=== PATIENT | male | born 1955 | race Caucasian/White ===

== ENCOUNTER 2021-08-11 09:30 | Day surgery (SDC) | payer OTHER ==
[2021-08-05 12:31] LABS: Absolute Lymphocytes (CBC) 1.1 K/uL (0.7-4.9); Basophils % 0.7 % (0-1.3); Hematocrit 41.9 % (39.6-49.0); Lymphocytes % 13.8 % (15.3-44.8); MPV 10.2 fL (7.6-11.3); RBC Red Blood Cell Count 4.75 M/uL (4.33-5.43)
[2021-08-05 12:33] LABS: Potassium 4.3 mmol/L (3.5-5.1); Protime INR 3.56
--- NOTE | 2021-08-05 12:36 | RAD REPORT ---
EXAM DESCRIPTION: RAD - Chest Pa And Lat (2 Views) - 08/05/2021 12:29 pm CLINICAL HISTORY: Pre Op pending heart cath COMPARISON: Chest Single View dated 04/09/2016; CHEST SINGLE VIEW dated 06/17/2012 FINDINGS: Lines: None. Lungs: No evidence of edema or pneumonia. Pleural: No significant pleural effusions or pneumothorax. Cardiac: The heart size is within normal limits. Bones: No acute fractures. Other: IMPRESSION: No acute cardiopulmonary disease.
[2021-08-11] MEDS ORDERED: NA CHLORIDE 0.9% 1,000 ML ONE (10:55)
[2021-08-11] MEDS ORDERED: NITROGLYCERIN/D5W 0 MG/0 ML BTL IV ONE (11:43)
[2021-08-11] MEDS ORDERED: MIDAZOLAM HCL 2 MG/2 ML INJ ONE ×2 (11:43→12:30)
[2021-08-11] MEDS ORDERED: ATROPINE SULF 1 MG/10 ML SYR IV ONE (11:43)
[2021-08-11] MEDS ORDERED: NITROGLYCERIN 100 MCG/ML SYR (for cath lab use only) IV ONE (11:43)
[2021-08-11] MEDS ORDERED: NA CHLORIDE 0.9% 0 ML ONE (11:43)
[2021-08-11] MEDS ORDERED: FENTANYL CITR 100 MCG/2 ML ONE (11:43)
[2021-08-11] MEDS ORDERED: LIDOCAINE 1% 20 ML MDV ONE (11:47)
[2021-08-11] MEDS ORDERED: HEPA 1000U/500MLS 1,000 UNIT/500 ML BAG IV ONE (11:47)
--- NOTE | 2021-08-11 12:25 | OP ---
Surgeon: Madi De Anda MD Dental Surgeon: Aliyah Sanders. The patient will stay in the hospital for 2 hours of bedrest after the procedure. He will go home an d I will see him in the office in the next 2 weeks. Procedure: Admitted on 08/11/2021 for heart catheterization, selective coronary arteriogram. Indication: Coronary artery disease, positive stress test, chest pain, and atrial fibrillation. The patient had been off anticoagulants for few days. 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 Given Versed and fentanyl for sedation. A 6-Kyrgyz sheath introduced in the right c ommon femoral artery using the Seldinger technique and 10 cc of Xylocaine. Angiography there was nor mal. Angio-Seal was used to close the case. Bo catheters left and right were used to cannulate the left main and right main respectively. He had a very short left main, almost dual system. He w as noted to have a 30% proximal circumflex, about a 40% to 50% mid LAD. He had a 99% diagonal with T IMI-1 flow, 30% proximal and distal RCA. There were no complications. Blood Loss: 5 mL. Anesthesia: Total conscious sedation was 30 minutes. Final Diagnosis: Coronary artery disease, [id number]. Plan: Plan is for medical therapy. YAMILET/JUAN Voice ID: [id number] Report ID: [id number]
[2021-08-11 13:37] VITALS: BP 110/58; TEMP 97.7; O2SAT 97
== END 2021-08-11 14:03 | disposition home or self-care (01) ==
LOC: CCL 09:30
DX: I25.10 Atherosclerotic heart disease of native coronary artery without angina pectoris (principal); I48.91 Unspecified atrial fibrillation; I10 Essential (primary) hypertension; Z79.01 Long term (current) use of anticoagulants; Z20.822 Contact with and (suspected) exposure to COVID-19
CPT/HCPCS: 85025; 80048; 36415; 85610; 85730; 71046; 93454; U0003; C1893; C1760; J2250 ×2; J3010; J7030; J1644; J0583

== ENCOUNTER 2023-08-07 11:37 | Emergency (ER) | payer OTHER ==
--- OUTSIDE RECORDS SUMMARY | 2023-08-07 11:45 | XMS REPORT | Continuity of Care Document ---
:1955 Author Organization [facility] t Address [address] [place] [place] [address] Care Team Providers Name Role Phone LARRY CHATMAN Primary Care Physician Unavailable Karen Higginbotham Attending Clinician Unavailable Doctor Unassigned, Patrick Attending Clinician Unavailable KEM SEARS Attending Clinician Unavailable Kem Sears MD Attending Clinician Only, Adc Test Attending Clinician Unavailable Jerald Salgado CRNA Attending Clinician Ephraim Lynch MD Attending Clinician Pob, Adc Lab Main Attending Clinician Unavailable Karen Higginbotham Admitting Clinician Unavailable Larry Chatman Admitting Clinician Unavailable KEM SEARS Admitting Clinician Unavailable Kem Sears MD Admitting Clinician Payers Payer Name Policy Type Policy Number Effective Date Expiration Date S ource Problems This patient has no known problems. Allergies, Adverse Reactions, Alerts Allergy Allergy Status Severity Reaction(s) Onset Inactive Treating Comm ents Source Name Type Date Date Clinician No Known DA Active [facility] Allergie 07-05 s 00:00: [address] NO KNOWN Drug Active Univers ALLERGIE Class ity of [facility] Social History Social Habit Start Date Stop Date Quantity Comments Source Exposure to 2022-03-29 2022-04-08 Not sure [facility] SARS-CoV-2 00:00:00 13:53:00 [facility] (event) [facility] Tobacco use and 2022-03-25 2022-03-25 Smokeless tobacco Un iversity of exposure 00:00:00 00:00:00 non-user [facility] Sex Assigned At [birth year] Universit y of 00:00:00 00:00:00 [facility] Smoking Status Start Date Stop Date Source Unknown if ever smoked [facility] Never smoked tobacco [place] [facility] Medications Ordered Filled Start Stop Current Ordering Indication Dosage Frequency Signature Comments Components Source Medication Medication Date Date Medication? Clinician (SIG) Name Name sodium 2021- No PRN, Univers chloride 04-15 Starting ity of (NS) 15:07: 15:44 on Wed [place] injection 00 :32 04/15/22 at Medic al 1007, Branch Until Wed04/15/22 at 1044, Routine, Intra-op neomycin-po 2021- No PRN, Unive rs lymyxin-dex 04-15 Starting ity of amethasone 15:07: 15[place]44 [place] ([place]OL[place] 00 :32 04/15/22 at [facility] 3.5 [facility], [facility] mg/g-10,000 Until Wed unit/g-0.1 04/15/22 at % 1044, ophthalmic Routine, ointment Intra-op dexamethaso 2021- No PRN, Unive rs ne 04-15 Starting ity of (DECADRON 15:07: 15:44 on Wed [place] PHOSPHATE) 00 :32 04/15/22 at Medi yaniv injection [facility], Branch Until Wed04/15/22 at 1044, Routine, Intra-op ceFAZolin 2021- No PRN, Univers (ANCEF) 04-15 Starting ity of injection 15:07: 15:44 on Wed [place] 00 :32 04/15/22 at [place] [address], Branch Until Wed04/15/22 at 1044, JOSH, Intra-op chondroitin 2021- No PRN, Unive rs sulf-sod 04-15 Starting ity of hyaluronate 14:58: 15:44 on Wed [place] (DUOVISC 00 :32 04/15/22 at Medica l VISCO 0958, Branch ELASTIC) Until Wed intraocular 04/15/22 at injection 1044, Routine, Intra-op carbachoL 2021- No PRN, Univers (MIOSTAT) 04-15 Starting ity o f 0.01 % 14:58: 15:44 on Wed [place] intraocular 00 :32 04/15/22 at Med ical injection 0958, Branch Until Wed04/15/22 at 1044, Routine, Intra-op EPINEPHrine 2021- No PRN, Unive rs 1:1,000 (1 04-15 Starting ity of mg/mL) 14:56: 15:44 on Wed [place] (ADRENALIN) 00 :32 04/15/22 at Med ical injection 0956, Branch Until Wed04/15/22 at 1044, Routine, Intra-op balanced 2021- No PRN, Univers salt irrig 04-15 Starting ity of soln comb1 14:56: 15:44 on Weda s (BSS PLUS) 00 :32 04/15/22 at [facility] ophthalmic 0956, Branch solution Until Wed 500 mL bag 04/15/22 at 1044, Routine, Intra-op water for 2021- No PRN, Univers irrigation 04-15 Starting ity of irrigation 14:49: 15:44 on Wed [place] solution 00 :32 04/15/22 at Medica l 0949, Branch Until Wed04/15/22 at 1044, Routine, Intra-op Hyaluronida 2021- No PRN, Unive rs se, Human 04-15 Starting ity o f Recomb. 14:46: 15:44 on Wed [place] (HYLENEX) 00 :32 22 at Medic al injection 0946, Branch Until Wed04/15/22 at 1044, Routine, Intra-op eye block 2021- No PRN, Univers syringe 11 04-15 Starting ity of mL 14:46: 15:44 on Wed [place] 00 :32 04/15/22 at Medical 0946, Branch Until Wed04/15/22 at 1044, Intra-op cyclopent 2021- No .5mL 0.5 mL, Univ ers 1%-tropic 04-15 Right Eye, ity of 1%-phenyl 13:30: 13:28 ONCE, 1 [place] 2.5%-ketor 00 :00 dose, On Medic al 0.5% Wed04/15/22 Branch (MYDRIATIC at 0830, #5) Routine, ophthalmic DSU Pre-op solution syringe 0.5 mL lactated 2021- No 1000mL at 42 [facility] ringers IV 04-15 07-06 mL/hr, ity of infusion 13:30: 13:28 1,000 mL, [place] 1,000 mL 00 :00 IV Medical Infusion, Branch ONCE, 1 dose, On Wed04/15/22 at 0830, Routine, DSU Pre-op cyclopent 2021- No .5mL 0.5 mL, Univ ers 1%-tropic 04-15 Right Eye, ity of 1%-phenyl 13:30: 13:28 ONCE, 1 [place] 2.5%-ketor 00 :00 dose, On Medic al 0.5% Wed04/15/22 Branch (MYDRIATIC at 0830, #5) Routine, ophthalmic DSU Pre-op solution syringe 0.5 mL lactated 2021- No 1000mL at 42 [facility] ringers IV 04-15 07-06 mL/hr, ity of infusion 13:30: 13:28 1,000 mL, [place] 1,000 mL 00 :00 IV Medical Infusion, Branch ONCE, 1 dose, On Wed04/15/22 at 0830, Routine, DSU Pre-op neomycin-po 2021- No PRN, [facility] lymyxin-dex 04-01 Starting ity of amethasone 15:54: 15:57 [place] (MAXITROL) 00 :17 04/01/22 at Med ical 3.5 1054, Branch mg/g-10,000 Until Wed unit/g-0.1 04/01/22 at % 1057, ophthalmic Routine, ointment Intra-op chondroitin 2021- No PRN, Unive rs sulf-sod 04-01 Starting ity of hyaluronate 15:51: 15:57 on Wed [place] (DUOVISC 00 :17 04/01/22 at Medic al VISCO 1051, Branch ELASTIC) Until Wed intraocular 04/01/22 at injection 1057, Routine, Intra-op dexamethaso 2021- No PRN, Unive rs ne 04-01 Starting ity of (DECADRON 15:41: 15:57 on Wed [place] PHOSPHATE) 00 :17 04/01/22 at Med ical injection 1041, Branch Until 04/01/22 at 1057, Routine, Intra-op ceFAZolin 2021- No PRN, Univers (ANCEF) 04-01 Starting ity of injection 15:40: 15:57 on Wed [place] 00 :17 04/01/22 at Medical 1040, Branch Until Wed04/01/22 at 1057, JOSH, Intra-op carbachoL 2021- No PRN, Univers (MIOSTAT) 04-01 Starting ity o f 0.01 % 15:40: 15:57 on Wed [place] intraocular 00 :17 04/01/22 at [place] dical injection 1040, Branch Until Wed04/01/22 at 1057, Routine, Intra-op water for 2021- No PRN, Univers irrigation 04-01 Starting ity of irrigation 15:32: 15:57 on Wed [place] solution 00 :17 04/01/22 at Medic al 1032, Branch Until Wed04/01/22 at 1057, Routine, Intra-op glycopyrrol 2021- No Intravenou Univers ate 04-01 s, ONCE ity of (ROBINUL) 15:32: 16:05 INTRA [place] injection 00 :35 PROCEDURE, [facility] yaniv Starting Branch on 04/01/22 at 1032, Until Wed04/01/22 at 1105, Routine, Intra-op sodium 2021- No PRN, Univers chloride 04-01 Starting ity of (NS) 15:30: 15:57 on Wed [place] injection 00 :17 04/01/22 at Medi yaniv 1030, Branch Until Wed04/01/22 at 1057, Routine, Intra-op eye block 2021- No PRN, Univers syringe 11 04-01 Starting ity of mL 15:29: 15:57 on Wed 00 :17 04/01/22 at Medical 1029, Branch Until Wed04/01/22 at 1057, Intra-op propofoL IV 2021- No Intravenou Univers infusion 04-01 s, ONCE ity of 15:26: 16:05 INTRA [place] 00 :35 PROCEDURE, Medical Starting Branch on Wed04/01/22 at 1026, Until Wed04/01/22 at 1105, Routine, Intra-op lidocaine 2021- No Intravenou U nivers 1% 04-01 s, ONCE ity of (XYLOCAINE) 15:26: 16:05 INTRA [place] 100 mg/10 00 :35 PROCEDURE, Medi yaniv mL (1 %) Starting Branch injection on Wed04/01/22 at 1026, Until Wed04/01/22 at 1105, Routine, Intra-op Hyaluronida 2021- No PRN, Unive rs se, Human 04-01 Starting ity o f Recomb. 15:25: 15:57 on Wed (HYLENEX) 00 :17 04/01/22 at Medi yaniv injection 1025, Branch Until Wed04/01/22 at 1057, Routine, Intra-op EPINEPHrine 2021- No PRN, Unive rs 1:1,000 (1 04-01 Starting ity of mg/mL) 15:25: 15:57 on Wed (ADRENALIN) 00 :17 04/01/22 at Me dical injection 1025, Branch Until Wed04/01/22 at 1057, Routine, Intra-op balanced 2021- No PRN, Univers salt irrig 04-01 Starting ity of soln comb1 15:25: 15:57 on Wed [place] (BSS PLUS) 00 :17 04/01/22 at Med ical ophthalmic 1025, Branch solution Until Wed 500 mL bag 04/01/22 at 1057, Routine, Intra-op lactated 2021- No IV Univers ringers IV 04-01 Infusion, ity of infusion 15:21: 16:05 [place]OUS [place] 00 :[place] PRN, Medical Starting Branch on Wed04/01/22 at 1021, Until Wed04/01/22 at 1105, Routine, Intra-op lactated 2021- No 1000mL at 42 [facility] rs ringers IV 04-01 mL/hr, ity of infusion 13:30: 13:39 1,000 mL, [place] 1,000 mL 00 :00 IV Medical Infusion, Branch ONCE, 1 dose, On Wed04/01/22 at 0830, Routine, DSU Pre-op cyclopent 2021- No .5mL 0.5 mL, Univ ers 1%-tropic 04-01 Left Eye, ity of 1%-phenyl 13:30: 13:59 ONCE, 1 [place] 2.5%-ketor 00 :00 dose, On Medic al 0.5% Wed Branch (MYDRIATIC 04/01/22 at #5) 0830, ophthalmic Routine, solution DSU Pre-op syringe 0.5 mL lactated 2021- No 1000mL at 42 [facility] rs ringers IV 04-01 mL/hr, ity of infusion 13:30: 13:39 1,000 mL, [place] 1,000 mL 00 :00 IV Medical Infusion, Branch ONCE, 1 dose, On Wed04/01/22 at 0830, Routine, DSU Pre-op cyclopent 2021- No .5mL 0.5 mL, Univ ers 1%-tropic 04-01 Left Eye, ity of 1%-phenyl 13:30: 13:59 ONCE, 1 [place] 2.5%-ketor 00 :00 dose, On Medic al 0.5% Wed Branch (MYDRIATIC 04/01/22 at #5) 0830, ophthalmic Routine, solution DSU Pre-op syringe 0.5 mL atorvastati Yes 40mg Take 40 mg Univers n 40 mg 5-21 by mouth ity of tablet 00:00: daily. [address] Branch atorvastati Yes 40mg Take 40 mg Univers n 40 mg 5-21 by mouth ity of tablet 00:00: daily. [address] Branch atorvastati 2021-0 Yes 40mg Take 40 mg Univers n 40 mg 5-21 by mouth ity of tablet 00:00: daily. [facility] Branch atorvastati 2021-0 Yes 40mg Take 40 mg Univers n 40 mg 5-21 by mouth ity of tablet 00:00: daily. [facility] Branch atorvastati 2021-0 Yes 40mg Take 40 mg Univers n 40 mg 5-21 by mouth ity of tablet 00:00: daily. [facility] Branch atorvastati 2021-0 Yes 40mg Take 40 mg Univers n 40 mg 5-21 by mouth ity of tablet 00:00: daily. [place] [facility] atorvastati 2021-0 Yes 40mg Take 40 mg Univers n 40 mg 5-21 by mouth ity of tablet 00:00: daily. [facility] atorvastati 2021-0 Yes 40mg Take 40 mg Univers n 40 mg 5-21 by mouth ity of tablet 00:00: daily. [facility] atorvastati 0 Yes 40mg Take 40 mg Univers n 40 mg 5-21 by mouth ity of tablet 00:00: daily. [place] [facility] warfarin 3 2021-0 Yes 3mg Take 3 mg Un saida mg tablet 5-17 by mouth ity of 00:00: every Wed, [place] , and Branch Wed in the evening. Wednesday, , Wed, and warfarin 4 2021-0 Yes 4mg Take 4 mg Un [place] mg tablet 5-17 by mouth ity of 00:00: every [place] Wednesday, Medical Wednesday and Branch Wednesday in the evening. Wednesday, Wednesday, and Wednesday warfarin 3 2021-0 Yes 3mg Take 3 mg Un [place] mg tablet 5-17 by mouth ity of 00:00: every Wed, [place] , and Branch Wed in the evening. Wednesday, , Wed, and warfarin 4 2021-0 Yes 4mg Take 4 mg Un [place] mg tablet 5-17 by mouth ity of 00:00: every [place] Wednesday, Medical Wednesday and Branch Wednesday in the evening. Wednesday, Wednesday, and Wednesday warfarin 3 2022-0 Yes 3mg Take 3 mg Un [place] mg tablet 5-17 by mouth ity of 00:00: every Wed, , Medical Th and Branch Wed in the evening. Wednesday, , Wed, and warfarin 4 2021-0 Yes 4mg Take 4 mg Un [place] mg tablet 5-17 by mouth ity of 00:00: every Wednesday, Medical Wednesday and Branch Wednesday in the evening. Wednesday, Wednesday, and Wednesday warfarin 3 2021-0 Yes 3mg Take 3 mg Un [place] mg tablet 5-17 by mouth ity of 00:00: every Wed, , Medical and Branch Wed in the evening. Wednesday, , Wed, and warfarin 4 2021-0 Yes 4mg Take 4 mg Un [place] mg tablet 5-17 by mouth ity of 00:00: every Wednesday, Medical Wednesday and Branch Wednesday in the evening. Wednesday, Wednesday, and Wednesday warfarin 3 2021-0 Yes 3mg Take 3 mg Un [place] mg tablet 5-17 by mouth ity of 00:00: every Wed, , Medical and Branch Wed in the evening. Wednesday, , Wed, and warfarin 4 2021-0 Yes 4mg Take 4 mg Un [place] mg tablet 5-17 by mouth ity of 00:00: every Wednesday, Medical Wednesday and Branch Wednesday in the evening. Wednesday, Wednesday, and Wednesday warfarin 3 2021-0 Yes 3mg Take 3 mg Un [place] mg tablet 5-17 by mouth ity of 00:00: every Wed, , Medical and Branch Wed in the evening. Wednesday, , Wed, and warfarin 4 2021-0 Yes 4mg Take 4 mg Un [place] mg tablet 5-17 by mouth ity of 00:00: every Wednesday, Medical Wednesday and Branch Wednesday in the evening. Wednesday, Wednesday, and Wednesday warfarin 3 2021-0 Yes 3mg Take 3 mg Un [place] mg tablet 5-17 by mouth ity of 00:00: every Wed, , Medical and Branch Wed in the evening. Wednesday, , Wed, and warfarin 4 2021-0 Yes 4mg Take 4 mg Un [place] mg tablet 5-17 by mouth ity of 00:00: every Wednesday, Medical Wednesday and Branch Wednesday in the evening. Wednesday, Wednesday, and Wednesday warfarin 3 2021-0 Yes 3mg Take 3 mg Un [place] mg tablet 5-17 by mouth ity of 00:00: every , and Branch Wed in the evening. Wednesday, , Wed, and warfarin 4 2021-0 Yes 4mg Take 4 mg Un [place] mg tablet 5-17 by mouth ity of 00:00: every Wednesday, Medical Wednesday and Branch Wednesday in the evening. Wednesday, Wednesday, and Wednesday warfarin 3 2021-0 Yes 3mg Take 3 mg Un [place] mg tablet 5-17 by mouth ity of 00:00: every , and Branch Wed in the evening. Wednesday, , Wed, and warfarin 4 2021-0 Yes 4mg Take 4 mg Un [place] mg tablet 5-17 by mouth ity of 00:00: every Wednesday, Medical Wednesday and Branch Wednesday in the evening. Wednesday, Wednesday, and Wednesday lisinopriL 2-0 Yes 30mg Take 30 mg U nivers 30 mg 3-28 by mouth ity of tablet 00:00: every [place] [address] morning. Medical Branch amLODIPine 2-0 Yes 5mg Take 5 mg Un [place] 5 mg tablet 3-28 by mouth ity of 00:00: every [place] morning. Medical Branch lisinopriL 2022-0 Yes 30mg Take 30 mg U nivers 30 mg 3-28 by mouth ity of tablet 00:00: every [place] 00 morning. Medical Branch amLODIPine 2022-0 Yes 5mg Take 5 mg Un [place] 5 mg tablet 3-28 by mouth ity of 00:00: every [place] 00 morning. Medical Branch lisinopriL 2022-0 Yes 30mg Take 30 mg U nivers 30 mg 3-28 by mouth ity of tablet 00:00: every [place] 00 morning. Medical Branch amLODIPine 2022-0 Yes 5mg Take 5 mg Un [place] 5 mg tablet 3-28 by mouth ity of 00:00: every [place] morning. Medical Branch lisinopriL 2022-0 Yes 30mg Take 30 mg U nivers 30 mg 3-28 by mouth ity of tablet 00:00: every [place] morning. Medical Branch amLODIPine 2022-0 Yes 5mg Take 5 mg Un [place] 5 mg tablet 3-28 by mouth ity of 00:00: every [place] morning. Medical Branch lisinopriL 2022-0 Yes 30mg Take 30 mg U nivers 30 mg 3-28 by mouth ity of tablet 00:00: every [place] morning. Medical Branch amLODIPine 2022-0 Yes 5mg Take 5 mg Un [place] 5 mg tablet 3-28 by mouth ity of 00:00: every [place] morning. Medical Branch lisinopriL 2022-0 Yes 30mg Take 30 mg U nivers 30 mg 3-28 by mouth ity of tablet 00:00: every [place] morning. Medical Branch amLODIPine 2022-0 Yes 5mg Take 5 mg Un [place] 5 mg tablet 3-28 by mouth ity of 00:00: every [place] morning. Medical Branch lisinopriL 2022-0 Yes 30mg Take 30 mg U nivers 30 mg 3-28 by mouth ity of tablet 00:00: every [place] morning. Medical Branch amLODIPine 2-0 Yes 5mg Take 5 mg Un [place]a 5 mg tablet 3-28 by mouth ity of 00:00: every [place] morning. Medical Branch lisinopriL 2022-0 Yes 30mg Take 30 mg U nivers 30 mg 3-28 by mouth ity of tablet 00:00: every [place] morning. Medical Branch amLODIPine 2022-0 Yes 5mg Take 5 mg Un [place] 5 mg tablet 3-28 by mouth ity of 00:00: every [place] morning. Medical Branch lisinopriL 2022-0 Yes 30mg Take 30 mg U nivers 30 mg 3-28 by mouth ity of tablet 00:00: every [place] morning. Medical Branch amLODIPine 2022-0 Yes 5mg Take 5 mg Un [place] 5 mg tablet 3-28 by mouth ity of 00:00: every [place] morning. Medical Branch Vital Signs Vital Name Observation Time Observation Value Comments Source Systolic blood 2022-04-15 15:25:00 142 mm[Hg] Univer sity of pressure [place] [facility] Diastolic blood 2022-04-15 15:25:00 72 mm[Hg] Unive rsity of pressure [place] [facility] Heart rate 2022-04-15 15:25:00 50 /min [facility]i ty [facility] [place] [facility] Respiratory rate 2022-04-15 15:25:00 6 /min Univ ersity of [place] [facility] Oxygen saturation in 2022-04-15 15:25:00 100 /min University of Arterial blood by [place] [employer] Pulse oximetry Branch Body temperature 2022-04-15 15:09:00 36.11 Maricruz Univ ersity of [place] [facility] Body height 2022-04-08 17:09:00 172 cm Universi ty of [place] [facility] Body weight 2022-04-08 17:09:00 72.6 kg [facility] [place] [facility] BMI 2022-04-08 17:09:00 24.54 kg/m2 [facility] [place] [facility] Systolic blood 2022-04-15 13:20:00 144 mm[Hg] Univer sity of pressure [place] [facility] Diastolic blood 2022-04-15 13:20:00 84 mm[Hg] Unive rsity of pressure [place] [facility] Heart rate 2022-04-15 13:20:00 40 /min Universi ty [facility] [place] [facility] Body temperature 2022-04-15 13:20:00 36.67 Maricruz Univ ersity of [place] [facility] Respiratory rate 2022-04-15 13:20:00 16 /min Univ ersity of [place] [facility] Oxygen saturation in 2022-04-15 13:20:00 100 /min University of Arterial blood by [place] [employer] Pulse oximetry Branch Body height 2022-04-08 17:09:00 172 cm Universi [facility] [place] [facility] Body weight 2022-04-08 17:09:00 72.6 kg Universi [facility] [place] [facility] BMI 2022-04-08 17:09:00 24.54 kg/m2 [facility] [place] [facility] Systolic blood 2022-04-01 16:15:00 137 mm[Hg] Univer sity of pressure [place] [facility] Diastolic blood 2022-04-01 16:15:00 76 mm[Hg] Unive rsity of pressure [place] [facility] Heart rate 2022-04-01 16:15:00 47 /min Universi ty [facility] [place] [facility] Respiratory rate 2022-04-01 16:15:00 9 /min Univ ersity of [place] [facility] Oxygen saturation in 2022-04-01 16:15:00 100 /min University of Arterial blood by [facility] Pulse oximetry Branch Body temperature 2022-04-01 16:00:00 36.5 Maricruz [facility] ersity of [place] [facility] Body height 2022-03-30 14:44:00 170.2 cm Universi ty [facility] [place] [facility] Body weight 2022-03-30 14:44:00 72.6 kg [facility] [place] [facility] BMI 2022-03-30 14:44:00 25.06 kg/m2 [facility] [place] [facility] Respiratory rate 2022-04-01 15:54:00 15 /min Univ ersity of [place] [facility] Systolic blood 2022-04-01 13:31:00 150 mm[Hg] Univer sity of pressure [facility] Diastolic blood 2022-04-01 13:31:00 81 mm[Hg] Unive rsity of pressure [facility] Heart rate 2022-04-01 13:31:00 49 /min Universi ty of [place] Medical [facility] Body temperature 2022-04-01 13:31:00 37.06 Maricruz [facility] ersity of [place] Medical [facility] Respiratory rate 2022-04-01 13:31:00 16 /min [facility] ersity of [place] [facility] Oxygen saturation in 2022-04-01 13:31:00 100 /min University of Arterial blood by [facility] Pulse oximetry Branch Body height 2022-03-30 14:44:00 170.2 cm [facility] [place] [facility] Body weight 2022-03-30 14:44:00 72.6 kg [facility] [place] [facility] BMI 2022-03-30 14:44:00 25.06 kg/m2 [facility] [place] [facility] Procedures Procedure Date / Time Performing Source Performed Clinician [id number] 2023-07-30 PIOTRHA [facility] 00:00:00 [facility] [id number] 2023-07-30 GANHA [facility] 00:00:00 [facility] [id number] 2023-07-30 GANHA [facility] 00:00:00 [facility] [id number] 2023-07-26 DAHMA [facility] 00:00:00 [facility] [id number] 2023-07-24 QUAAM [facility] 00:00:00 [facility] [id number] 2023-07-24 QUAAM [facility] 00:00:00 [facility] [id number] 2023-07-24 QUAAM [facility] 00:00:00 [facility] [id number] 2023-07-24 QUAAM [facility] 00:00:00 [facility] [id number] 2023-07-15 CHAAB.01 [facility] 00:00:00 [facility] [id number] 2023-07-15 ALKNE [facility] 00:00:00 [facility] [id number] 2023-07-15 CHAAB.01 [facility] 00:00:00 [facility] [id number] 2023-07-15 CHAAB.01 [facility] 00:00:00 [facility] [id number] 2023-07-15 ALKNE [facility] 00:00:00 [facility] [id number] 2023-07-15 CHAAB.01 [facility] 00:00:00 [facility] [id number] 2023-07-15 CHAAB.01 [facility] 00:00:00 [facility] [id number] 2023-07-15 ALKNE [facility] 00:00:00 [facility] [id number] 2023-07-14 ALKNE [facility] 00:00:00 [facility] [id number] 2023-07-14 ALKNE [facility] 00:00:00 [facility] VACCINATIONS - CONSENTS, 2022-04-22 Doctor Unassigned, [facility] ELIGIBILITY, HISTORY 05:01:00 [place] [facility] PHACOEMULSIFICATION OF 2022-04-15 Kem Sears [facility] CATARACT WITH INTRAOCULAR 14:36:00 Medica l Branch LENS IMPLANT PROTHROMBIN TIME / INR 2022-04-15 Kem Sears [facility] 13:25:00 Medical [facility] PROTHROMBIN TIME / INR 2022-04-15 Kem Sears [facility] 13:25:00 Medical [facility] CONSENT/REFUSAL FOR DIAGNOSIS 2022-04-14 Doctor Unassigned, [facility] AND TREATMENT 19:30:53 [place] [facility] CONSENT/REFUSAL FOR DIAGNOSIS 2022-04-14 Doctor Unassigned, [facility] AND TREATMENT 19:30:53 [place] [facility] ASSIGNMENT OF BENEFITS 2022-04-14 Doctor Figueroa [facility] 19:30:28 [place] [facility] ASSIGNMENT OF BENEFITS 2022-04-14 Doctor Unassrosina [facility] 19:30:28 [place] [facility] PHACOEMULSIFICATION OF 2022-04-01 Kem Sears [facility] CATARACT WITH INTRAOC[facility]00 [facility] LENS IMPLANT PROTHROMBIN TIME / INR 2022-04-01 Kem Sears [facility] 13:31:00 [facility] PROTHROMBIN TIME / INR 2022-04-01 Kem Sears [facility] 13:31:00 Medical [place] PHYSICIAN ORDERS 2022-03-27 Doctor [facility] 05:01:00 [place] [facility] ASSIGNMENT OF BENEFITS 2022-03-16 Doctor Figueroa [facility] 21:41:08 [place] [facility] Encounters Start End Encounter Admission Attending Care Care Encounter Source Date/Time Date/Time Type Type Clinicians Facility Department ID 2023-07-14 2023-08-04 Inpatient WAI GómezCL INTE.02 [id number] [facility] 05:36:00 14:54:00 Karen 23 [facility] 2023-07-05 2023-07-05 Outpatient WAI GómezCL 3DAY [id number] [facility] 08:00:00 09:00:00 Karen 88 [facility] 2022-04-22 2022-04-22 Orders Doctor MCKEON [id number] Univers 00:00:00 00:00:00 Only Unassigned, MELVI [id number] [facility]y of [place] [facility] [id number] [place] as [id number] [place] [address] Branch 2022-04-15 2022-04-15 Outpatient FADI CAMPBELL OPH [id number] Univers 08:16:00 10:39:00 KEM blackwood [facility] 2022-04-15 2022-04-15 [facility] FADI Sears [id number] Univers 08:16:00 10:39:00 Encounter Kem Dunn DAVID [id number] ity [id number] [id number] [facility] 071 Branch 2022-04-15 2022-04-15 Surgery [facility] [id number] Univers 08:59:00 09:31:00 Kem Dunn DAVID [id number] [id number] [id number] [facility] [address] 2022-04-14 2022-04-14 Laboratory Only, Adc Test [facility] 1.2.840. 114 [id number] Univers 11:30:00 11:45:00 Only RenuKem 350.1.13.1 0 [place] [id number] [facility] [address] 2022-04-14 2022-04-14 [facility] [id number] Univers 11:30:00 11:30:00 KEM [facility] 2022-04-01 2022-04-01 Outpatient R [facility] [id number] Univers 08:20:00 11:23:00 KEM [facility] 2022-04-01 2022-04-01 [facility] 1.2.314.885 [id number] Univers 08:20:00 11:23:00 Encounter Kem Mona DAVID 350.1.13.10 [place] [id number] [place] [id number] Branch 2022-04-01 2022-04-01 Anesthesia Jerald Salgado [facility] 1.2.840.11 4 [id number] Univers 10:21:00 11:01:00 Event Ephraim Lynch 350.1.13.10 [place] [id number] [facility] [address] 2022-04-01 2022-04-01 Surgery [facility] 1.2.840.114 [id number] Univers 09:32:00 10:04:00 Kem HERNANDEZ 350.1.13.10 [place] [id number] [facility] [address] 2022-03-27 2022-03-27 Keno Writer/Runner Kirstin, Adc Lab Main [facility] 1.2.8 40.114 [id number] Univers 13:45:00 14:00:00 Visit Kme Sears DAVID 350.1.13.1 0 [place] PROF[place] [id number] Az dic[address] 2022-03-27 2022-03-27 Outpatient R [facility] [id number] Univers 13:45:00 13:45:00 KEM sierra [facility] 2022-03-27 2022-03-27 Orders Doctor [facility] 1.2.840.114 [id number] Univers 00:00:00 00:00:00 Only Unassigned, MELVI 350.1.13.10 [place] of [place] [facility] 4.2.7.2.686 [place] as [id number] [address] 2022-03-16 2022-03-16 Keno Writer/Runner Kirstin, [facility] Lab Main [facility] 1.2.8 40.114 [id number] Univers 16:45:00 17:00:00 Visit Kem Sears DAVID 350.1.13.1 0 [place] [id number] Az dicmt NAL [address] [place] [address] 2022-03-16 2022-03-16 Outpatient R [facility] [id number] Univers 16:45:00 16:45:00 KEM blackwood [facility] 2022-03-16 2022-03-16 Orders Doctor [facility] 1.2.840.114 [id number] Univers 00:00:00 00:00:00 Only Unassigned, MELVI 350.1.13.10 ity of [place] [facility] 4.2.7.2.686 [place] [id number] Medi yaniv [address]9 [address] Results Test Description Test Time Test Comments Results Result Comments Source - XR CHEST 1 V 2023-08-04 09:06:00 [facility] : 1955 Sex: M FAX: Karen Corley MD [phone] [place]: St: ADM FAX: Larry Mock MD [phone] FAX: Dorothy Ventura NP [phone] FAX: Tom Toribio MD [phone] Name: CARLOS MANUEL DOUGLASS [facility] : 1955 Age/S: 68/M [address] [place] [address] Bl Unit #: [id number] Loc: G.3346 [place] [address] Phys: Dorothy Ventura NP Acct: [id number] Dis Date: Status: ADM IN PHONE #: [phone] Exam Date: 08/04/2023 0650 FAX #: [phone] Reason: S/P CABG, R/O EFFUSION EXAMS: CPT CODE: [id number] XR CHEST 1 V 61632 STUDY: Chest radiograph HISTORY: CABG COMPARISON: 08/03/2023 TECHNIQUE: Frontal view of the chest. LOCATION: H19 FINDINGS: Left chest single lead pacemaker is again noted. Again seen are poststernotomy changes. The cardiac silhouette is stable in size. Left basilar opacity and small left pleural effusion are similar to the prior exam. There is no discernible pneumothorax. IMPRESSION: No significant interval change. at 0906 Reported and signed by: Jatin Coreas M.D. CC: Karen Higginbotham MD; Larry Chatman MD; Dorothy Ventura NP; Tom Richard MD Technologist: Afshin López RT(R) Trnscrd Date/Time/By: 08/04/2023 (905) : By: [email or web address] Orig Print D/T: S: 08/04/2023 (0909) PAGE 1 Signed Report B-TYPE NATRIURETIC PEPTIDE 2023-08-04 03:31:00 Test Item Value Reference Range Interpretation Comme nts B-TYPE NATRIURETIC PEPTIDE (test code = BNP) 354.0 PG/ML 0-100 H BASIC METABOLIC [id number] 03:26:00 Test Item Value Reference Range Interpretation Comments SODIUM (test code = 131 mEq/L 134-147 L NA) POTASSIUM (test code 3.8 mEq/L 3.4-5.0 N = K) CHLORIDE (test code 101 mEq/L 100-108 N = CL) CARBON DIOXIDE (test 26 mEq/l 21-33 N code = CO2) ANION GAP (test code 7 0-20 N = GAP) GLUCOSE (test code = 103 mg/dL 77-141 N NOTE: N EW NORMAL RANGE GLU) BLOOD UREA NITROGEN 19 mg/dL 7-25 N NOTE: NE W NORMAL RANGE (test code = BUN) GLOMERULAR 72.7 80-90 L The Glomerular FILTRATION RATE Filtration R ate is a (test code = GFR) calculated parameterbased on serum Creatinine, pat ient age and sex. GFR va luesless than 60 mL/min/ 1.73 square meters a re indicative ofCh ronic Kidney Disease. Values less than 15 mL/min/1.73squa re meters indicate Kidney failure. The calculation forGFR is based on the CKD-EPI (2020) calculat ion. This formulais race indifferent and is the recommended for anabell for GFRby the Natio nal Kidney Foundati on for Adults.The GFR will not calculate if th e sex is unknown or if thepatient's ag e is <18 years. CREATININE (test 1.1 mg/dL 0.6-1.3 N code = CREAT) CALCIUM (test code = 8.5 mg/dL 8.0-10.5 N CA) [id number] 03:26:00 Test Item Value Reference Range Interpretation Comments PHOSPHOROUS (test code = PHOS) 4.8 MG/DL 2.5-4.9 [id number] 03:26:00 Test Item Value Reference Range Interpretation Comments MAGNESIUM (test code = 1.83 mg/dL 1.6-2.6 N NOTE: NEW NORMAL MAG) RANGE CBC W/AUTO [id number] 03:17:00 Test Item Value Reference Range Interpretation Comments WHITE BLOOD CELL (test code = 9.1 x10 3/uL 4.5-11.0 N WBC) RED BLOOD CELL (test code = 3.25 x10 6/uL 4.00-5.60 L RBC) HEMOGLOBIN (test code = HGB) 9.4 g/dL 12.5-16.9 L HEMATOCRIT (test code = HCT) 29.6 % 37.5-50.7 L MEAN CELL VOLUME (test code = 91.1 fL 81.0-99.0 N MCV) MEAN CELL HGB (test code = MCH) 28.9 pg 27.0-33.0 N MEAN CELL HGB CONCETRATION 31.8 g/dL 33.0-37.0 L (test code = MCHC) RED CELL DISTRIBUTION WIDTH CV 14.6 % 11.5-14.5 H (test code = RDW) RED CELL DISTRIBUTION WIDTH SD 48.1 fL 37.0-54.0 N (test code = RDW-SD) PLATELET COUNT (test code = 420 x10 3/uL 150-400 H PLT) MEAN PLATELET VOLUME (test code 9.4 fL 7.0-9.0 H = MPV) NEUTROPHIL % (test code = NT%) 69.1 % 56.0-77.0 N IMMATURE GRANULOCYTE % (test 0.9 % 0.0-2.0 N code = IG%) LYMPHOCYTE % (test code = LY%) 10.9 % 14.0-32.0 L MONOCYTE % (test code = MO%) 11.3 % 4.8-9.0 H EOSINOPHIL % (test code = EO%) 6.6 % 0.3-3.7 H BASOPHIL % (test code = BA%) 1.2 % 0.0-2.0 N NUCLEATED RBC % (test code = 0.0 % 0-0 N NRBC%) NEUTROPHIL # (test code = NT#) 6.31 x10 3/uL 2.0-7.6 N IMMATURE GRANULOCYTE # (test 0.08 x10 3/uL 0.00-0.03 H code = IG#) LYMPHOCYTE # (test code = LY#) 0.99 x10 3/uL 1.0-3.8 L MONOCYTE # (test code = MO#) 1.03 x10 3/uL 0.1-0.8 H EOSINOPHIL # (test code = EO#) 0.60 x10 3/uL 0.0-0.2 H BASOPHIL # (test code = BA#) 0.11 x10 3/uL 0.0-0.2 N NUCLEATED RBC # (test code = 0.00 x10 3/uL 0.0-0.1 N NRBC#) - XR CHEST 1 [id number] 08:51:00 [facility] : 1955 Sex: M FAX: Karen Corley MD [phone] [place]: St: ADM FAX: Larry Mock MD [phone] FAX: Dorothy Ventura NP [phone] FAX: Tom Toribio MD [phone] Name: CARLOS MANUEL DOUGLASS : 1955 Age/S: 68/M [address] [place] [address] Bl Unit #: [id number] Loc: .3346 [place] [address] Phys: Dorothy Ventura NP Acct: [id number] Dis Date: Status: ADM IN PHONE #: [phone] Exam Date: 08/03/2023711 FAX #: [phone] Reason: S/P CABG, R/O EFFUSION EXAMS: CPT CODE: [id number] XR CHEST 1 V 80301 EXAM: - XRCHEST 1 V INDICATION: S/P CABG, R/O EFFUSION Technique: Frontal view Location: T18 Findings and impression: Small left pleural effusion and left lung opacities appear to be unchanged since yesterday.No pneumothorax seen. Left pacemaker noted. Cardiomediastinal silhouette appears unchanged. Osseous s tructures appear unremarkable. at 0851 Reported and signed by: Sivakumar Arambula M.D. CC: Karen Higginbotham MD; Larry Chatman MD; Dorothy Ventura NP;Tom Richard MD Technologist: Lorene Leonard RT(R) Trnscrd Date/Time/By: 08/03/2023 (0851) : By:[email or web address] Orig Print D/T: S: 08/03/2023 (0841) PAGE 1 Signed ReportBASIC METABOLIC PANEL 2023-08-03 03:29:00 Test Item Value Reference Range Interpretation Comments SODIUM (test code = 132 mEq/L 134-147 L NA) POTASSIUM (test code 4.0 mEq/L 3.4-5.0 N = K) CHLORIDE (test code 100 mEq/L 100-108 N = CL) CARBON DIOXIDE (test 25 mEq/l 21-33 N code = CO2) ANION GAP (test code 11 0-20 N = GAP) GLUCOSE (test code = 104 mg/dL 77-141 N NOTE: N EW NORMAL RANGE GLU) BLOOD UREA NITROGEN 17 mg/dL 7-25 N NOTE: NE W NORMAL RANGE (test code = BUN) GLOMERULAR 92.5 80-90 H The Glomerular FILTRATION RATE Filtration R ate is a (test code = GFR) calculated parameterbased on serum Creatinine, pat ient age and sex. GFR va luesless than 60 mL/min/ 1.73 square meters a re indicative ofCh ronic Kidney Disease. Values less than 15 mL/min/1.73squa re meters indicate Kidney failure. The calculation forGFR is based on the CKD-EPI (2020) calculat ion. This formulais race indifferent and is the recommended for anabell for GFRby the Natcounts include 234 beds at the [facility] Kidney Foundati on for Adults.The GFR will not calculate if th e sex is unknown or if thepatient's ag e is <18 years. CREATININE (test 0.9 mg/dL 0.6-1.3 N code = CREAT) CALCIUM (test code = 8.6 mg/dL 8.0-10.5 N CA) [id number] 03:29:00 Test Item Value Reference Range Interpretation Comments PHOSPHOROUS (test code = PHOS) 3.8 MG/DL 2.5-4.9 N [id number] 03:29:00 Test Item Value Reference Range Interpretation Comments MAGNESIUM (test code = 1.93 mg/dL 1.6-2.6 N NOTE: NEW NORMAL MAG) RANGE CBC W/AUTO [id number] 03:04:00 Test Item Value Reference Range Interpretation Comments WHITE BLOOD CELL (test code = 8.5 x10 3/uL 4.5-11.0 N WBC) RED BLOOD CELL (test code = 3.21 x10 6/uL 4.00-5.60 L RBC) HEMOGLOBIN (test code = HGB) 9.5 g/dL 12.5-16.9 L HEMATOCRIT (test code = HCT) 29.0 % 37.5-50.7 L MEAN CELL VOLUME (test code = 90.3 fL 81.0-99.0 N MCV) MEAN CELL HGB (test code = MCH) 29.6 pg 27.0-33.0 N MEAN CELL HGB CONCETRATION 32.8 g/dL 33.0-37.0 L (test code = MCHC) RED CELL DISTRIBUTION WIDTH CV 14.6 % 11.5-14.5 H (test code = RDW) RED CELL DISTRIBUTION WIDTH SD 47.8 fL 37.0-54.0 N (test code = RDW-SD) PLATELET COUNT (test code = 414 x10 3/uL 150-400 H PLT) MEAN PLATELET VOLUME (test code 9.3 fL 7.0-9.0 H = MPV) NEUTROPHIL % (test code = NT%) 65.0 % 56.0-77.0 N IMMATURE GRANULOCYTE % (test 0.6 % 0.0-2.0 N code = IG%) LYMPHOCYTE % (test code = LY%) 13.6 % 14.0-32.0 L MONOCYTE % (test code = MO%) 11.8 % 4.8-9.0 H EOSINOPHIL % (test code = EO%) 7.6 % 0.3-3.7 H BASOPHIL % (test code = BA%) 1.4 % 0.0-2.0 N NUCLEATED RBC % (test code = 0.0 % 0-0 N NRBC%) NEUTROPHIL # (test code = NT#) 5.49 x10 3/uL 2.0-7.6 N IMMATURE GRANULOCYTE # (test 0.05 x10 3/uL 0.00-0.03 H code = IG#) LYMPHOCYTE # (test code = LY#) 1.15 x10 3/uL 1.0-3.8 N MONOCYTE # (test code = MO#) 1.00 x10 3/uL 0.1-0.8 H EOSINOPHIL # (test code = EO#) 0.64 x10 3/uL 0.0-0.2 H BASOPHIL # (test code = BA#) 0.12 x10 3/uL 0.0-0.2 N NUCLEATED RBC # (test code = 0.00 x10 3/uL 0.0-0.1 N NRBC#) - CHEST 1 [id number] 07:40:00 [facility] : 1955 Sex: M FAX: Karen Corley MD [phone] [place]: St: ADM FAX: Larry Mock MD [phone] FAX: Dorothy Ventura NP [phone] FAX: Tom Toribio MD [phone] Name: CARLOS MANUEL DOUGLASS [facility] [place] : 1955 Age/S: 68/M [address] [place] [address] Unit #: [id number] Loc: G.3346 [place] [address] Phys: Dorothy Ventura NPAcct: [id number] Dis Date: Status: ADM IN PHONE #: [phone] Exam Date: 08/02/2023 0737 FAX #:[phone] Reason: S/P CABG, R/O EFFUSION EXAMS: CPT CODE: [id number] XR CHEST 1 V 85318 EXAM: - XR CHEST 1 V Location code:C3 HISTORY: S/P CABG, R/O EFFUSION COMPARISON: 08/01/2023 IMPRESSION: Single AP view of the chest is provided. Median sternotomy changes and left chest wall pacer device are unchanged. Retrocardiac opacity favoring small effusion is similar. The right lung remains clear. There is no pneumothorax. No additional interval change. at 4040 Reported and signed by: Germain Godfrey M.D. CC: Karen Higginbotham MD; Larry Chatmna MD; Dorothy Ventura NP; Tom Richard MD Technologist: Christiano Corey RT(R) Trnscrd Date/Time/By: 08/02/2023 (0715) : By: [email or web address] Orig Print D/T: S: 08/02/2023 (1425) PAGE 1 Signed ReportBASIC METABOLIC PANEL 2023-08-02 02:34:00 Test Item Value Reference Range Interpretation Comments SODIUM (test code = 133 mEq/L 134-147 L NA) POTASSIUM (test code 3.9 mEq/L 3.4-5.0 N = K) CHLORIDE (test code 101 mEq/L 100-108 N = CL) CARBON DIOXIDE (test 24 mEq/l 21-33 N code = CO2) ANION GAP (test code 12 0-20 N = GAP) GLUCOSE (test code = 96 mg/dL 77-141 N NOTE: N EW NORMAL RANGE GLU) BLOOD UREA NITROGEN 17 mg/dL 7-25 N NOTE: NE W NORMAL RANGE (test code = BUN) GLOMERULAR 92.5 80-90 H The Glomerular FILTRATION RATE Filtration R ate is a (test code = GFR) calculated parameterbased on serum Creatinine, pat ient age and sex. GFR va luesless than 60 mL/min/ 1.73 square meters a re indicative ofCh ronic Kidney Disease. Values less than 15 mL/min/1.73squa re meters indicate Kidney failure. The calculation forGFR is based on the CKD-EPI (2020) calculat ion. This formulais race indifferent and is the recommended for anabell for GFRby the Nat nal Kidney Foundati on for Adults.The GFR will not calculate if th e sex is unknown or if thepatient's ag e is <18 years. CREATININE (test 0.9 mg/dL 0.6-1.3 N code = CREAT) CALCIUM (test code = 8.8 mg/dL 8.0-10.5 N CA) [id number] 02:34:00 Test Item Value Reference Range Interpretation Comments MAGNESIUM (test code = 2.00 mg/dL 1.6-2.6 N NOTE: NEW NORMAL MAG) RANGE CBC W/AUTO [id number] 02:19:00 Test Item Value Reference Range Interpretation Comments WHITE BLOOD CELL (test code = 8.0 x10 3/uL 4.5-11.0 N WBC) RED BLOOD CELL (test code = 3.18 x10 6/uL 4.00-5.60 L RBC) HEMOGLOBIN (test code = HGB) 9.2 g/dL 12.5-16.9 L HEMATOCRIT (test code = HCT) 28.6 % 37.5-50.7 L MEAN CELL VOLUME (test code = 89.9 fL 81.0-99.0 MCV) MEAN CELL HGB (test code = MCH) 28.9 pg 27.0-33.0 N MEAN CELL HGB CONCETRATION 32.2 g/dL 33.0-37.0 L (test code = MCHC) RED CELL DISTRIBUTION WIDTH CV 14.5 % 11.5-14.5 N (test code = RDW) RED CELL DISTRIBUTION WIDTH SD 47.0 fL 37.0-54.0 N (test code = RDW-SD) PLATELET COUNT (test code = 409 x10 3/uL 150-400 H PLT) MEAN PLATELET VOLUME (test code 9.1 fL 7.0-9.0 H = MPV) NEUTROPHIL % (test code = NT%) 68.1 % 56.0-77.0 N IMMATURE GRANULOCYTE % (test 0.6 % 0.0-2.0 N code = IG%) LYMPHOCYTE % (test code = LY%) 11.9 % 14.0-32.0 L MONOCYTE % (test code = MO%) 11.6 % 4.8-9.0 H EOSINOPHIL % (test code = EO%) 6.8 % 0.3-3.7 H BASOPHIL % (test code = BA%) 1.0 % 0.0-2.0 N NUCLEATED RBC % (test code = 0.0 % 0-0 N NRBC%) NEUTROPHIL # (test code = NT#) 5.42 x10 3/uL 2.0-7.6 N IMMATURE GRANULOCYTE # (test 0.05 x10 3/uL 0.00-0.03 H code = IG#) LYMPHOCYTE # (test code = LY#) 0.95 x10 3/uL 1.0-3.8 L MONOCYTE # (test code = MO#) 0.92 x10 3/uL 0.1-0.8 H EOSINOPHIL # (test code = EO#) 0.54 x10 3/uL 0.0-0.2 H BASOPHIL # (test code = BA#) 0.08 x10 3/uL 0.0-0.2 N NUCLEATED RBC # (test code = 0.00 x10 3/uL 0.0-0.1 N NRBC#) MANUAL DIFF REQUIRED (test code NO = MDIFF) - XR CHEST 1 [id number] 09:47:00 [facility] : 1955 Sex: M FAX:Karen Corley MD [phone] [place]: St: ADM FAX: Larry Mock MD [phone] FAX: Sobia Valdez MD [phone] FAX: Tom Toribio MD [phone] Name: RAFATCARLOS MANUEL Chavez [facility] : 1955 Age/S: 68/M [address] [place] [address] Blvd Unit #: [id number] Loc: G.3346 [place] [address] Phys: Sobia Ghosh MD Acct: [id number] Dis Date: Status: ADM IN PHONE #: [phone] Exam Date: 08/01/2023922 FAX#: [phone] Reason: POST OP CVICU EXAMS: CPT CODE: [id number] XR CHEST 1 V 31484 EXAM: - XR CHEST 1 V HISTORY: POST OP CVICU LOCATION CODE:T18 COMPARISON: Prior day FINDINGS/ IMPRESSION: Stable cardiomediastinal silhouette and stable left subclavian approach unipolar pacemaker lead. Similar appearance of small left pleural effusion with left basilar atelectasis compared to prior imaging. Lungs otherwise appear clear. No appreciable pneumothorax. No additional interval change. at 0947 Reported and signed by: Ondina Harris M.D. CC: Karen Higginbotham MD; Larry Chatman MD; Sobia Ghosh MD; Tom Richard MD Technologist: Bernie Escobar, RT(R); Dorothy Figueroa RT(R) Trnncrd Date/Time/By: 08/01/2023 (7058) : By: [email or web address] Orig Print D/T: S: 08/01/2023 (2995) PAGE 1 Signed ReportBASIC METABOLIC [id number] 04:27:00 Test Item Value Reference Range Interpretation Comments SODIUM (test code = 130 mEq/L 134-147 L NA) POTASSIUM (test code 4.3 mEq/L 3.4-5.0 N = K) CHLORIDE (test code 100 mEq/L 100-108 N = CL) CARBON DIOXIDE (test 22 mEq/l 21-33 N code = CO2) ANION GAP (test code 12 0-20 N = GAP) GLUCOSE (test code = 101 mg/dL 77-141 NOTE: N EW NORMAL RANGE GLU) BLOOD UREA NITROGEN 13 mg/dL 7-25 N NOTE: NE W NORMAL RANGE (test code = BUN) GLOMERULAR 92.5 80-90 H The Glomerular FILTRATION RATE Filtration R ate is a (test code = GFR) calculated parameterbased on serum Creatinine, pat ient age and sex. GFR va luesless than 60 mL/min/ 1.73 square meters a re indicative ofCh ronic Kidney Disease. Values less than 15 mL/min/1.73squa re meters indicate Kidney failure. The calculation forGFR is based on the CKD-EPI (2020) calculat ion. This formulais race indifferent and is the recommended for anabell for GFRby the [facility] Kidney Foundati on for Adults.The GFR will not calculate if th e sex is unknown or if thepatient's ag e is <18 years. CREATININE (test 0.9 mg/dL 0.6-1.3 N code = CREAT) CALCIUM (test code = 8.3 mg/dL 8.0-10.5 N CA) [id number] 04:27:00 Test Item Value Reference Range Interpretation Comments PHOSPHOROUS (test code = PHOS) 3.3 MG/DL 2.5-4.9 N [id number] 04:27:00 Test Item Value Reference Range Interpretation Comments MAGNESIUM (test code = 1.89 mg/dL 1.6-2.6 N NOTE: NEW NORMAL MAG) RANGE CBC W/AUTO [id number] 04:08:00 Test Item Value Reference Range Interpretation Comments WHITE BLOOD CELL (test code = 7.8 x10 3/uL 4.5-11.0 N WBC) RED BLOOD CELL (test code = 3.09 x10 6/uL 4.00-5.60 L RBC) HEMOGLOBIN (test code = HGB) 9.0 g/dL 12.5-16.9 L HEMATOCRIT (test code = HCT) 28.9 % 37.5-50.7 L MEAN CELL VOLUME (test code = 93.5 fL 81.0-99.0 N MCV) MEAN CELL HGB (test code = MCH) 29.1 pg 27.0-33.0 N MEAN CELL HGB CONCETRATION 31.1 g/dL 33.0-37.0 L (test code = MCHC) RED CELL DISTRIBUTION WIDTH CV 14.7 % 11.5-14.5 H (test code = RDW) RED CELL DISTRIBUTION WIDTH SD 49.2 fL 37.0-54.0 N (test code = RDW-SD) PLATELET COUNT (test code = 300 x10 3/uL 150-400 N PLT) MEAN PLATELET VOLUME (test code 9.3 fL 7.0-9.0 H = MPV) NEUTROPHIL % (test code = NT%) 69.8 % 56.0-77.0 N IMMATURE GRANULOCYTE % (test 0.8 % 0.0-2.0 N code = IG%) LYMPHOCYTE % (test code = LY%) 10.8 % 14.0-32.0 L MONOCYTE % (test code = MO%) 11.7 % 4.8-9.0 H EOSINOPHIL % (test code = EO%) 5.9 % 0.3-3.7 H BASOPHIL % (test code = BA%) 1.0 % 0.0-2.0 N NUCLEATED RBC % (test code = 0.0 % 0-0 N NRBC%) NEUTROPHIL # (test code = NT#) 5.40 x10 3/uL 2.0-7.6 N IMMATURE GRANULOCYTE # (test 0.06 x10 3/uL 0.00-0.03 H code = IG#) LYMPHOCYTE # (test code = LY#) 0.84 x10 3/uL 1.0-3.8 L MONOCYTE # (test code = MO#) 0.91 x10 3/uL 0.1-0.8 H EOSINOPHIL # (test code = EO#) 0.46 x10 3/uL 0.0-0.2 H BASOPHIL # (test code = BA#) 0.08 x10 3/uL 0.0-0.2 N NUCLEATED RBC # (test code = 0.00 x10 3/uL 0.0-0.1 N NRBC#) - [facility] [id number] 18:53:[address] [facility] [place] MARTIN RODRIGUEZName: CARLOS MANUEL DOUGLASS : 1955 Sex: M Name:CARLOS MANUEL DOUGLASS [facility] [place] : 1955 Age/S: 68 / M [address] [place] [address] Unit #: [id number] Loc: KEELY [place] [address] Phys: Dorothy Ventura NP Acct: [id number] Dis Date: Status: ADM IN PHONE #: [phone] Exam Date: 07/31/20231841 FAX #: [phone] Reason: r/o DVT EXAMS: CPT CODE: [id number] DUP VEIN FLORINDA [address] Location code: H5 Venous Doppler right and left Lower Extremity Indication: r/o DVT. Comparison: None. Technique; Dawn scale, color flow, and spectral Doppler imaging was performed. Findings; The deep venous system is patent with no evidence of deep venous thrombosis or obstruction. The common femoral, superficial femoral, popliteal, anterior tibial, and posterior tibial veins are patent, and demonstrate normal venous flow with normal spectral analysis. Impression: 1. Normal right and left lower extremity venous Doppler ultrasound. 2. No evidence of deep venous thrombosis at 1853 Reported and signed by: Zia Magana M.D. 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 CHEST 1 [id number] 08:43:00 [facility] : 1955 Sex: M FAX: Karen Corley MD [phone] [place]: St: ADM FAX: Larry Mock MD [phone] FAX: Sobia Valdez MD [phone] FAX: Tom Toribio MD [phone] Name: CARLOS MANUEL DOUGLASS [facility] : 1955 Age/S:68/M [address] [place] [address] Unit #: [id number] Loc: G.3346 [place] [address] Phys: Sobia Ghosh MD Acct: [id number] Dis Date: Status: ADM IN PHONE #: [phone] Exam Date: 07/31/2023839 FAX#: [phone] Reason: POST OP CVICU EXAMS: CPT CODE: [id number] XR CHEST 1 V 06161 EXAM: - XR CHEST1 V HISTORY: POST OP CVICU LOCATION CODE:T18 COMPARISON: Prior day FINDINGS/ IMPRESSION: Stable cardiomediastinal silhouette and stable left subclavian approach unipolar pacemaker lead. Similar appearance of small left pleural effusion with left basilar atelectasis since prior imaging. Lungs otherwise appear clear. No appreciable pneumothorax. No additional interval change. at 0843 Reported and signed by: Ondina Harris M.D. CC: Karen Higginbotham MD; Larry Chatman MD; Sobia Ghosh MD; Tom Richard MD Technologist: Christiano Corey, RT(R); Dorothy Figueroa, RT(R) Trnscrd Date/Time/By: 07/31/2023 (0843) : By: [email or web address] Orig Print D/T: S: 07/31/2023 (0816) PAGE 1 Signed ReportBASIC METABOLIC [id number] 04:46:00 Test Item Value Reference Range Interpretation Comments SODIUM (test code = 129 mEq/L 134-147 L NA) POTASSIUM (test code 3.9 mEq/L 3.4-5.0 N = K) CHLORIDE (test code 101 mEq/L 100-108 N = CL) CARBON DIOXIDE (test 21 mEq/l 21-33 N code = CO2) ANION GAP (test code 11 0-20 N = GAP) GLUCOSE (test code = 141 mg/dL 77-141 NOTE: N EW NORMAL RANGE GLU) BLOOD UREA NITROGEN 16 mg/dL 7-25 N NOTE: NE W NORMAL RANGE (test code = BUN) GLOMERULAR 59.5 80-90 L The Glomerular FILTRATION RATE Filtration R ate is a (test code = GFR) calculated parameterbased on serum Creatinine, pat ient age and sex. GFR va luesless than 60 mL/min/ 1.73 square meters a re indicative ofCh ronic Kidney Disease. Values less than 15 mL/min/1.73squa re meters indicate Kidney failure. The calculation forGFR is based on the CKD-EPI (2020) calculat ion. This formulais race indifferent and is the recommended for anabell for GFRby the [facility] on for Adults.The GFR will not calculate if th e sex is unknown or if thepatient's ag e is <18 years. CREATININE (test 1.3 mg/dL 0.6-1.3 N code = CREAT) CALCIUM (test code = 8.5 mg/dL 8.0-10.5 N CA) [id number] 04:46:00 Test Item Value Reference Range Interpretation Comments MAGNESIUM (test code = 1.97 mg/dL 1.6-2.6 N NOTE: NEW NORMAL MAG) RANGE CBC W/AUTO [id number] 04:22:00 Test Item Value Reference Range Interpretation Comments WHITE BLOOD CELL (test code = 8.9 x10 3/uL 4.5-11.0 N WBC) RED BLOOD CELL (test code = 3.22 x10 6/uL 4.00-5.60 L RBC) HEMOGLOBIN (test code = HGB) 9.3 g/dL 12.5-16.9 L HEMATOCRIT (test code = HCT) 29.4 % 37.5-50.7 L MEAN CELL VOLUME (test code = 91.3 fL 81.0-99.0 N MCV) MEAN CELL HGB (test code = MCH) 28.9 pg 27.0-33.0 N MEAN CELL HGB CONCETRATION 31.6 g/dL 33.0-37.0 L (test code = MCHC) RED CELL DISTRIBUTION WIDTH CV 14.7 % 11.5-14.5 H (test code = RDW) RED CELL DISTRIBUTION WIDTH SD 48.3 fL 37.0-54.0 N (test code = RDW-SD) PLATELET COUNT (test code = 433 x10 3/uL 150-400 H PLT) MEAN PLATELET VOLUME (test code 9.0 fL 7.0-9.0 N = MPV) NEUTROPHIL % (test code = NT%) 74.2 % 56.0-77.0 N IMMATURE GRANULOCYTE % (test 1.0 % 0.0-2.0 N code = IG%) LYMPHOCYTE % (test code = LY%) 8.3 % 14.0-32.0 L MONOCYTE % (test code = MO%) 10.2 % 4.8-9.0 H EOSINOPHIL % (test code = EO%) 5.3 % 0.3-3.7 H BASOPHIL % (test code = BA%) 1.0 % 0.0-2.0 N NUCLEATED RBC % (test code = 0.0 % 0-0 N NRBC%) NEUTROPHIL # (test code = NT#) 6.59 x10 3/uL 2.0-7.6 N IMMATURE GRANULOCYTE # (test 0.09 x10 3/uL 0.00-0.03 H code = IG#) LYMPHOCYTE # (test code = LY#) 0.74 x10 3/uL 1.0-3.8 L MONOCYTE # (test code = MO#) 0.91 x10 3/uL 0.1-0.8 H EOSINOPHIL # (test code = EO#) 0.47 x10 3/uL 0.0-0.2 H BASOPHIL # (test code = BA#) 0.09 x10 3/uL 0.0-0.2 N NUCLEATED RBC # (test code = 0.00 x10 3/uL 0.0-0.1 N NRBC#) MANUAL DIFF REQUIRED (test code NO = ANALY) - XR CHEST 1 [id number] 17:59:00 [facility] : 1955 Sex: M FAX: Karen Corley MD [phone] [place]: St: ADM FAX: Larry Mock MD [phone] FAX: Tom Toribio MD [phone] FAX: Wilian Serrano [phone] Name: RAFATSAMIA ChavezCARLOS MANUEL [facility] : 1955 Age/S: 68/M [address] [place] [address] Unit #: [id number] Loc: Calos6 [place] [address] Phys: Sherly Serrano Acct: [id number] Dis Date: Status: ADM IN PHONE #: [phone] Exam Date: 07/30/20231748 FAX#: [phone] Reason: Post PM/ICD EXAMS: CPT CODE: [id number] XR CHEST 1 V 28642 Clinical Information: Status post pacemaker insertion Dictation Location: A 1 COMPARISON: 0528 hours today. FINDINGS:Portable frontal view of the chest taken at 1733 hours shows monitoring electrodes overlying the chest wall. Sternal wire sutures. New single wire pacemaker via the left axillary route with no apparent insertional complication. Globular cardiomegaly is unchanged from prior. Left basilar effusion and atelectasis or infiltrate also unchanged. Right lung is clear. No acute bone findings. IMPRESSION: Interval insertion of single wire pacemaker with no apparent complication. Otherwise unchanged from prior. at 1759 Reported and signed by: Kevyn Bolaños M.D. CC: Karen Higginbotham MD; Larry Chatman MD; Tom Richard MD; Wilian Prakash Technologist: RT Idalia(Maryan) Trnscrd Date/Time/By: 07/30/2023 (1758) : By: [email or web address] Orig Print D/T: S: 07/30/2023 (060) PAGE 1 Signed Report- XR CHEST 1 [id number] 07:39:00 [facility] : 1955 Sex: M FAX: Karen Corley MD [phone] [place]: St: ADM FAX: Larry Mock MD [phone] FAX: Sobia Valdez MD [phone] FAX: Tom Toribio MD [phone] Name: CARLOS MANUEL DOUGLASS [facility] : 1955 Age/S:68/M [address] [place] [address] Unit #: [id number] Loc: G.2201 [place] [address] Phys: Sobia Ghosh [facility] Acct: [id number] Dis Date: Status: ADM IN PHONE #: [phone] Exam Date: 07/30/2023733 FAX #: [phone] Reason: POST OP CVICU EXAMS: CPT CODE: [id number] XR CHEST 1 V 40369 EXAM: - XR CHEST 1 V Location code:C3 HISTORY: POST OP CVICU COMPARISON: 07/29/2023 IMPRESSION: Single AP view of the chest is provided. Cardiomegaly persists. The right lung is clear. Small left effusion is unchanged. There is no pneumothorax. No additional interval change. at 0739 Reported and signed by: Germain Godfrey M.D. CC: Karen Higginbotham MD; Larry Chatman MD; Sobia Ghosh MD; Tom Richard MD Technologist: Lorene Leonard RT(R) Trnscrd Date/Time/By: 07/30/2023 (0739) : By: [email or web address] Orig Print D/T: S: 07/30/2023 (0748) PAGE 1 Signed ReportBASIC METABOLIC [id number] 03:03:00 Test Item Value Reference Range Interpretation Comments SODIUM (test code = 131 mEq/L 134-147 L NA) POTASSIUM (test code 4.4 mEq/L 3.4-5.0 N = K) CHLORIDE (test code 99 mEq/L 100-108 L = CL) CARBON DIOXIDE (test 22 mEq/l 21-33 N code = CO2) ANION GAP (test code 14 0-20 N = GAP) GLUCOSE (test code = 108 mg/dL 77-141 N NOTE: N EW NORMAL RANGE GLU) BLOOD UREA NITROGEN 17 mg/dL 7-25 N NOTE: NE W NORMAL RANGE (test code = BUN) GLOMERULAR 72.7 80-90 L The Glomerular FILTRATION RATE Filtration R ate is a (test code = GFR) calculated parameterbased on serum Creatinine, pat ient age and sex. GFR va luesless than 60 mL/min/ 1.73 square meters a re indicative ofCh ronic Kidney Disease. Values less than 15 mL/min/1.73squa re meters indicate Kidney failure. The calculation forGFR is based on the CKD-EPI (2020) calculat ion. This formulais race indifferent and is the recommended for anabell for GFRby the Natio nal Kidney Foundati on for Adults.The GFR will not calculate if th e sex is unknown or if thepatient's ag e is <18 years. CREATININE (test 1.1 mg/dL 0.6-1.3 N code = CREAT) CALCIUM (test code = 8.4 mg/dL 8.0-10.5 N CA) [id number] 03:03:00 Test Item Value Reference Range Interpretation Comments MAGNESIUM (test code = 2.06 mg/dL 1.6-2.6 N NOTE: NEW NORMAL MAG) RANGE PROTHROMBIN [id number] 02:55:00 Test Item Value Reference Range Interpretation Comments PROTHROMBIN TIME 14.5 SECONDS 9.3-12.9 H PATIENT (test code = PTP) INTERNATIONAL NORMAL 1.3 0.8-1.2 H TARGET INR BY RATIO (test code = INDICATIO N Indication INR) INR1. Prophylax is of venous thrombos is 2.0 - 3.0 (orthoped ic surgery), Proph ylaxis of venous throm bosis (other than hig h-risk surgery), Treat ment of Deep Vein Thrombosis/Pulm onary Embolism, Preve ntion of systemic emb olism - Tissue heart va lves, Acute Myocardia l Infarction (to prevent systemic emboli sm), Valvular heart disease, Atrial Fibrillation, Bileaflet mecha nical valve in aortic position.2. Mec hanical prosthetic valv es (high risk), 2. 5 - 3.5 Presence of Lup us Anticoagulant o r Antiphospholipi d Antibodies, Pre vention of systemic emb olism - Acute Myocardia l Infarction (to prevent recurrent infar ct). COMMENTS: Within 7 days of procedureCBC W/AUTO [id number] 02:48:00 Test Item Value Reference Range Interpretation Comments WHITE BLOOD CELL (test code = 9.5 x10 3/uL 4.5-11.0 N WBC) RED BLOOD CELL (test code = 2.89 x10 6/uL 4.00-5.60 L RBC) HEMOGLOBIN (test code = HGB) 8.5 g/dL 12.5-16.9 L HEMATOCRIT (test code = HCT) 26.2 % 37.5-50.7 L MEAN CELL VOLUME (test code = 90.7 fL 81.0-99.0 N MCV) MEAN CELL HGB (test code = MCH) 29.4 pg 27.0-33.0 N MEAN CELL HGB CONCETRATION 32.4 g/dL 33.0-37.0 L (test code = MCHC) RED CELL DISTRIBUTION WIDTH CV 14.4 % 11.5-14.5 N (test code = RDW) RED CELL DISTRIBUTION WIDTH SD 46.2 fL 37.0-54.0 N (test code = RDW-SD) PLATELET COUNT (test code = 253 x10 3/uL 150-400 N PLT) MEAN PLATELET VOLUME (test code 9.8 fL 7.0-9.0 H = MPV) NEUTROPHIL % (test code = NT%) 73.3 % 56.0-77.0 N IMMATURE GRANULOCYTE % (test 1.4 % 0.0-2.0 N code = IG%) LYMPHOCYTE % (test code = LY%) 9.9 % 14.0-32.0 L MONOCYTE % (test code = MO%) 9.7 % 4.8-9.0 H EOSINOPHIL % (test code = EO%) 5.0 % 0.3-3.7 H BASOPHIL % (test code = BA%) 0.7 % 0.0-2.0 N NUCLEATED RBC % (test code = 0.0 % 0-0 N NRBC%) NEUTROPHIL # (test code = NT#) 6.94 x10 3/uL 2.0-7.6 N IMMATURE GRANULOCYTE # (test 0.13 x10 3/uL 0.00-0.03 H code = IG#) LYMPHOCYTE # (test code = LY#) 0.94 x10 3/uL 1.0-3.8 L MONOCYTE # (test code = MO#) 0.92 x10 3/uL 0.1-0.8 H EOSINOPHIL # (test code = EO#) 0.47 x10 3/uL 0.0-0.2 H BASOPHIL # (test code = BA#) 0.07 x10 3/uL 0.0-0.2 N NUCLEATED RBC # (test code = 0.00 x10 3/uL 0.0-0.1 N NRBC#) BASIC METABOLIC [id number] 18:47:00 Test Item Value Reference Range Interpretation Comments SODIUM (test code = 129 mEq/L 134-147 L NA) POTASSIUM (test code 4.2 mEq/L 3.4-5.0 N = K) CHLORIDE (test code 97 mEq/L 100-108 L = CL) CARBON DIOXIDE (test 23 mEq/l 21-33 N code = CO2) ANION GAP (test code 13 0-20 N = GAP) GLUCOSE (test code = 127 mg/dL 77-141 N NOTE: N EW NORMAL RANGE GLU) BLOOD UREA NITROGEN 17 mg/dL 7-25 N NOTE: NE W NORMAL RANGE (test code = BUN) GLOMERULAR 72.7 80-90 L The Glomerular FILTRATION RATE Filtration R ate is a (test code = GFR) calculated parameterbased on serum Creatinine, pat ient age and sex. GFR va luesless than 60 mL/min/ 1.73 square meters a re indicative ofCh ronic Kidney Disease. Values less than 15 mL/min/1.73squa re meters indicate Kidney failure. The calculation forGFR is based on the CKD-EPI (2020) calculat ion. This formulais race indifferent and is the recommended for anabell for GFRby the [facility] Kidney Foundati on for Adults.The GFR will not calculate if th e sex is unknown or if thepatient's ag e is <18 years. CREATININE (test 1.1 mg/dL 0.6-1.3 N code = CREAT) CALCIUM (test code = 8.4 mg/dL 8.0-10.5 N CA) [id number] 18:47:00 Test Item Value Reference Range Interpretation Comments MAGNESIUM (test code = 2.12 mg/dL 1.6-2.6 N NOTE: NEW NORMAL MAG) RANGE - XR CHEST 1 [id number] 08:45:00 [facility] : 1955 Sex: M FAX:Jigar Gilmore MD [place]: St: ADM FAX: Karen Corley MD [phone] FAX: Larry Mock MD [phone] FAX: Tom Toribio MD [phone] Name: CARLOS MANUEL DOUGLASS [facility] : 1955 Age/S: 68/M [address] [place] [address] Blvd Unit #: [id number] Loc: G.2200 [place] [address] Phys: Jigar Hodges MD Acct: [id number] Dis Date: Status: ADM IN PHONE #: [phone] Exam Date: 07/29/2023840 FAX #: [phone] Reason: S/P CABG EXAMS: CPT CODE: [id number] XR CHEST 1 V 30642 EXAM: - XR CHEST 1 V INDICATION: S/P CABGTechnique: Frontal view Location: T18 Findings and impression: Small amount of bibasilar opacities are unchanged since chest x-ray performed earlier the same day. Suspect small left pleural effusion. No pneumothorax seen. Cardiomediastinal silhouette appears unremarkable. Osseous structures appear unremarkable. at 0845 Reported and signed by: Sivakumar Arambula M.D. CC: Jigar Hodges MD; Karen Higginbotham MD; Larry Chatman MD; Tom Richard MD Technologist: Lorene Leonard, RT(R) Trnscrd Date/Time/By: 07/29/2023 (0874) : By: [email or web address] Orig Print D/T: S: 07/29/2023 (0849) PAGE 1 Signed Report- XR CHEST 1 [id number] 07:13:00 [facility] : 1955 Sex: M FAX: Karen Corley MD [phone] [place]: St: ADM FAX: Larry Mock MD [phone] FAX: Sobia Valdez MD [phone] FAX: Tom Toribio MD [phone] Name: CARLOS MANUEL DOUGLASS [facility] [place] : 1955 Age/S:68/M [address] [place] [address] Unit #: [id number] Loc: [place] [address] Phys: Sobia Ghosh [facility] Acct: [id number] Dis Date: Status: ADM IN PHONE #: [phone] Exam Date: 07/29/2023 0643 FAX #: [phone] Reason: POST OP CVICU EXAMS: CPT CODE: [id number] XR CHEST 1 V 75053 EXAM: - XR CHEST1 V INDICATION: POST OP CVICU Technique: Frontal view Location: T18 Findings and impression: Pulmonary opacities are unchanged since yesterday. No pleural effusion seen. Cardiomediastinal silhouette appears unremarkable. Osseous structures appear unremarkable. at 0713 Reported and signed by: Sivakumar Arambula M.D. CC: Karen Higginbohtam MD; Brien Chatman MD; Sobia Ghosh MD; Tom Richard MD Technologist: RT Ronnie(R) Trnscrd Date/Time/By: 07/29/2023 (07) : By: [email or web address] Orig Print D/T: S: 07/29/2023 (0717) PAGE 1 Signed Report BASIC METABOLIC [id number] 03:35:00 Test Item Value Reference Range Interpretation Comments SODIUM (test code = 130 mEq/L 134-147 L NA) POTASSIUM (test code 3.9 mEq/L 3.4-5.0 N = K) CHLORIDE (test code 100 mEq/L 100-108 N = CL) CARBON DIOXIDE (test 25 mEq/l 21-33 N code = CO2) ANION GAP (test code 9 0-20 N = GAP) GLUCOSE (test code = 106 mg/dL 77-141 N NOTE: N EW NORMAL RANGE GLU) BLOOD UREA NITROGEN 18 mg/dL 7-25 N NOTE: NE W NORMAL RANGE (test code = BUN) GLOMERULAR 72.7 80-90 L The Glomerular FILTRATION RATE Filtration R ate is a (test code = GFR) calculated parameterbased on serum Creatinine, pat ient age and sex. GFR va luesless than 60 mL/min/ 1.73 square meters a re indicative ofCh ronic Kidney Disease. Values less than 15 mL/min/1.73squa re meters indicate Kidney failure. The calculation forGFR is based on the CKD-EPI (2020) calculat ion. This formulais race indifferent and is the recommended for anabell for GFRby the [facility] Kidney Foundati on for Adults.The GFR will not calculate if th e sex is unknown or if thepatient's ag e is <18 years. CREATININE (test 1.1 mg/dL 0.6-1.3 N code = CREAT) CALCIUM (test code = 8.2 mg/dL 8.0-10.5 N CA) [id number] 03:35:00 Test Item Value Reference Range Interpretation Comments MAGNESIUM (test code = 2.13 mg/dL 1.6-2.6 N NOTE: NEW NORMAL MAG) RANGE CBC W/AUTO [id number] 03:11:00 Test Item Value Reference Range Interpretation Comments WHITE BLOOD CELL (test code = 10.8 x10 3/uL 4.5-11.0 N WBC) RED BLOOD CELL (test code = 2.93 x10 6/uL 4.00-5.60 L RBC) HEMOGLOBIN (test code = HGB) 8.5 g/dL 12.5-16.9 L HEMATOCRIT (test code = HCT) 26.6 % 37.5-50.7 L MEAN CELL VOLUME (test code = 90.8 fL 81.0-99.0 N MCV) MEAN CELL HGB (test code = MCH) 29.0 pg 27.0-33.0 N MEAN CELL HGB CONCETRATION 32.0 g/dL 33.0-37.0 L (test code = MCHC) RED CELL DISTRIBUTION WIDTH CV 14.4 % 11.5-14.5 N (test code = RDW) RED CELL DISTRIBUTION WIDTH SD 46.3 fL 37.0-54.0 N (test code = RDW-SD) PLATELET COUNT (test code = 363 x10 3/uL 150-400 N PLT) MEAN PLATELET VOLUME (test code 9.2 fL 7.0-9.0 H = MPV) NEUTROPHIL % (test code = NT%) 77.3 % 56.0-77.0 H IMMATURE GRANULOCYTE % (test 0.9 % 0.0-2.0 N code = IG%) LYMPHOCYTE % (test code = LY%) 8.1 % 14.0-32.0 L MONOCYTE % (test code = MO%) 9.7 % 4.8-9.0 H EOSINOPHIL % (test code = EO%) 3.4 % 0.3-3.7 N BASOPHIL % (test code = BA%) 0.6 % 0.0-2.0 N NUCLEATED RBC % (test code = 0.0 % 0-0 N NRBC%) NEUTROPHIL # (test code = NT#) 8.31 x10 3/uL 2.0-7.6 H IMMATURE GRANULOCYTE # (test 0.10 x10 3/uL 0.00-0.03 H code = IG#) LYMPHOCYTE # (test code = LY#) 0.87 x10 3/uL 1.0-3.8 L MONOCYTE # (test code = MO#) 1.05 x10 3/uL 0.1-0.8 H EOSINOPHIL # (test code = EO#) 0.37 x10 3/uL 0.0-0.2 H BASOPHIL # (test code = BA#) 0.07 x10 3/uL 0.0-0.2 N NUCLEATED RBC # (test code = 0.00 x10 3/uL 0.0-0.1 N NRBC#) CBC W/AUTO [id number] 16:41:00 Test Item Value Reference Range Interpretation Comments WHITE BLOOD CELL (test code = 10.3 x10 3/uL 4.5-11.0 N WBC) RED BLOOD CELL (test code = 3.00 x10 6/uL 4.00-5.60 L RBC) HEMOGLOBIN (test code = HGB) 8.8 g/dL 12.5-16.9 L HEMATOCRIT (test code = HCT) 26.5 % 37.5-50.7 L MEAN CELL VOLUME (test code = 88.3 fL 81.0-99.0 N MCV) MEAN CELL HGB (test code = MCH) 29.3 pg 27.0-33.0 N MEAN CELL HGB CONCETRATION 33.2 g/dL 33.0-37.0 N (test code = MCHC) RED CELL DISTRIBUTION WIDTH CV 14.6 % 11.5-14.5 H (test code = RDW) RED CELL DISTRIBUTION WIDTH SD 45.7 fL 37.0-54.0 N (test code = RDW-SD) PLATELET COUNT (test code = 390 x10 3/uL 150-400 N PLT) MEAN PLATELET VOLUME (test code 9.1 fL 7.0-9.0 H = MPV) NEUTROPHIL % (test code = NT%) 76.1 % 56.0-77.0 N IMMATURE GRANULOCYTE % (test 0.9 % 0.0-2.0 N code = IG%) LYMPHOCYTE % (test code = LY%) 8.3 % 14.0-32.0 L MONOCYTE % (test code = MO%) 11.5 % 4.8-9.0 H EOSINOPHIL % (test code = EO%) 2.5 % 0.3-3.7 N BASOPHIL % (test code = BA%) 0.7 % 0.0-2.0 N NUCLEATED RBC % (test code = 0.0 % 0-0 N NRBC%) NEUTROPHIL # (test code = NT#) 7.85 x10 3/uL 2.0-7.6 H IMMATURE GRANULOCYTE # (test 0.09 x10 3/uL 0.00-0.03 H code = IG#) LYMPHOCYTE # (test code = LY#) 0.85 x10 3/uL 1.0-3.8 L MONOCYTE # (test code = MO#) 1.18 x10 3/uL 0.1-0.8 H EOSINOPHIL # (test code = EO#) 0.26 x10 3/uL 0.0-0.2 H BASOPHIL # (test code = BA#) 0.07 x10 3/uL 0.0-0.2 N NUCLEATED RBC # (test code = 0.00 x10 3/uL 0.0-0.1 N NRBC#) BASIC METABOLIC [id number] 16:40:00 Test Item Value Reference Range Interpretation Comments SODIUM (test code = 128 mEq/L 134-147 L NA) POTASSIUM (test code 4.1 mEq/L 3.4-5.0 N = K) CHLORIDE (test code 96 mEq/L 100-108 L = CL) CARBON DIOXIDE (test 24 mEq/l 21-33 N code = CO2) ANION GAP (test code 12 0-20 N = GAP) GLUCOSE (test code = 127 mg/dL 77-141 N NOTE: N EW NORMAL RANGE GLU) BLOOD UREA NITROGEN 18 mg/dL 7-25 N NOTE: NE W NORMAL RANGE (test code = BUN) GLOMERULAR 72.7 80-90 L The Glomerular FILTRATION RATE Filtration R ate is a (test code = GFR) calculated parameterbased on serum Creatinine, pat ient age and sex. GFR va luesless than 60 mL/min/ 1.73 square meters a re indicative ofCh ronic Kidney Disease. Values less than 15 mL/min/1.73squa re meters indicate Kidney failure. The calculation forGFR is based on the CKD-EPI (2020) calculat ion. This formulais race indifferent and is the recommended for anabell for GFRby the Nat nal Kidney Foundati on for Adults.The GFR will not calculate if th e sex is unknown or if thepatient's ag e is <18 years. CREATININE (test 1.1 mg/dL 0.6-1.3 N code = CREAT) CALCIUM (test code = 7.8 mg/dL 8.0-10.5 L CA) - CT CHEST W/O [id number] 10:42:00 [facility] : 1955 Sex: M Name:CARLOS MANUEL DOUGLASS [facility] [place] : 1955 Age/S: 68 / M [address] [place] [address] Unit #: [id number] Loc: KEELY Ras[place] [address] Phys: Juan Pablo Mast MD Acct: [id number] Dis Date: Status: ADM IN PHONE#: [phone] Exam Date: 07/28/2023943 FAX #: [phone] Reason: reevaluate EXAMS: CPT CODE: [id number] CT CHEST W/O CONTRAST 05930 EXAM: Chest CT without contrast Dictation location: E5 INDICATIO N: Coronary artery disease, status post CABG x2 COMPARISON: Chest x-ray performed earlier today and CT chest on 07/23/2023 TECHNIQUE: Helical CT of the chest was performed without contrast. 5 mm axial and coronal and sagittal reformatted images were obtained. Unless otherwise specified, incidental find ings do not require dedicated imaging follow-up. DISCUSSION: Lungs and airways: Small left and traceright pleural effusions are noted, unchanged on the left and improved on the right compared to 07/23/2023. There is partial compressive atelectasis of both lower lobes. No pneumothorax is seen. Heart and mediastinum: The aorta is normal in caliber. Moderate aortic atherosclerotic calcification is noted. Previous CABG is noted. Mild cardiomegaly is identified. The previously noted retrosternal fluid collection has decreased in size, now measuring 3.6 x 1.8 cm, with upper limits of normal simple fluidattenuation. Lymph nodes: No lymphadenopathy. Bones/soft tissues: No fracture or bony mass lesion. Upper abdomen: Unremarkable. IMPRESSION: 1. Decreasing size of the retrosternal fluid collection, now measuring 3.6 x 1.8 cm. Given the simple fluid attenuation, this is probably a resolving seroma. 2. Small bilateral pleural effusions, slightly improved on the right compared to 07/23/2023. There is mild partial compressive atelectasis of both lower lobes. 3. Previous CABG. Unchanged mild cardiac megaly. One or more of the following dose reduction techniques were used: PAGE 1 Signed Report (CONTINUED) Name: CARLOS MANUEL DOUGLASS [facility] : 1955 Age/S: 68 / M [address] [place] [address] Unit #: [id number] Loc: [place] [address] Phys: Juan Pablo Mast MD Acct: [id number] Dis Date: Status: ADM IN PHONE #: [phone] Exam Date: 07/28/2023943 FAX #: [phone] Reason: reevaluate EXAMS: CPT CODE: [id number] CT CHEST W/O CONTRAST 58951 (Continued) Automated exposure control, adjustment of the mA and/or kV according to patient size, and/or utilization of iterative reconstruction technique. DLP: 183 mGy-cm CTDI: 5 mGy at 1042 Reported and signed by: Jerald Martell M.D. CC: Karen Higginbotham MD; Larry Chatman MD; Eloisa Mast MD; Tom Richard MD Technologist:Pal Reyes Jr, RT(R)(CT) CTDI: DLP: Trnscb Date/Time:07/28/2023 (1042) [email or web address] Orig Print D/T: S: 07/28/2023 (7614) PAGE 2 Signed Report- XR CHEST 1 [id number] 06:29:00 [facility] : 1955 Sex: M FAX: Jigar Gilmore MD [place]: St: ADM FAX: Karen Corley MD [phone] FAX: Larry Mock MD [phone] FAX: Tom Toribio MD [phone] [facility] 1955 [facility]S: 68[facility]M [address] [facility] Unit #: [id number] Loc: [place] [address] Phys: Jigar Hodges MD Acct: [id number] Dis Date: Status: ADM IN PHONE #: [phone] Exam Date: 07/28/2023 0500 FAX #: [phone] Reason: S/P CABG EXAMS: CPT CODE: [id number] XR CHEST 1 V 40914 EXAMINATION: - XR CHEST 1 V LOCATION: H101 INDICATION/CLINICAL HISTORY: S/P CABG COMPARISON: Chest x-ray July 27, 2023. TECHNIQUE: AP viewof the chest. FINDINGS: There is stable mild enlargement of the cardiac silhouette. Postoperative changes of CABG again noted. Pulmonary vascular congestion is similar. There is similar left basilar opacity. Blunting of the CP angles is unchanged. No pneumothorax. Postoperative changes of median sternotomy. IMPRESSION: No significant interval change. at 0629 Reported and signed by: Abhishek Scruggs M.D. CC: Jigar Hodges MD; Karen Higginbotham MD; Larry Chatman MD; Tom Richard MD Technologist: RT Hollis(R) Trnscrd Date/Time/By: 07/28/2023 (0629) : By: [email or web address] Orig Print D/T: S: 07/28/2023 (0650) PAGE 1 Signed ReportBASIC METABOLIC [id number] 03:20:00 Test Item Value Reference Range Interpretation Comments SODIUM (test code = 130 mEq/L 134-147 L NA) POTASSIUM (test code 4.0 mEq/L 3.4-5.0 N = K) CHLORIDE (test code 96 mEq/L 100-108 L = CL) CARBON DIOXIDE (test 26 mEq/l 21-33 N code = CO2) ANION GAP (test code 12 0-20 N = GAP) GLUCOSE (test code = 107 mg/dL 77-141 N NOTE: N EW NORMAL RANGE GLU) BLOOD UREA NITROGEN 15 mg/dL 7-25 N NOTE: NE W NORMAL RANGE (test code = BUN) GLOMERULAR 65.5 80-90 L The Glomerular FILTRATION RATE Filtration R ate is a (test code = GFR) calculated parameterbased on serum Creatinine, pat ient age and sex. GFR va luesless than 60 mL/min/ 1.73 square meters a re indicative ofCh ronic Kidney Disease. Values less than 15 mL/min/1.73squa re meters indicate Kidney failure. The calculation forGFR is based on the CKD-EPI (2020) calculat ion. This formulais race indifferent and is the recommended for anabell for GFRby the Natio nal Kidney Foundati on for Adults.The GFR will not calculate if th e sex is unknown or if thepatient's ag e is <18 years. CREATININE (test 1.2 mg/dL 0.6-1.3 N code = CREAT) CALCIUM (test code = 8.2 mg/dL 8.0-10.5 N CA) [id number] 03:20:00 Test Item Value Reference Range Interpretation Comments MAGNESIUM (test code = 2.18 mg/dL 1.6-2.6 N NOTE: NEW NORMAL MAG) RANGE CBC W/AUTO [id number] 03:03:00 Test Item Value Reference Range Interpretation Comments WHITE BLOOD CELL (test code = 9.8 x10 3/uL 4.5-11.0 N WBC) RED BLOOD CELL (test code = 3.16 x10 6/uL 4.00-5.60 L RBC) HEMOGLOBIN (test code = HGB) 9.4 g/dL 12.5-16.9 L HEMATOCRIT (test code = HCT) 27.9 % 37.5-50.7 L MEAN CELL VOLUME (test code = 88.3 fL 81.0-99.0 N MCV) MEAN CELL HGB (test code = MCH) 29.7 pg 27.0-33.0 N MEAN CELL HGB CONCETRATION 33.7 g/dL 33.0-37.0 N (test code = MCHC) RED CELL DISTRIBUTION WIDTH CV 14.6 % 11.5-14.5 H (test code = RDW) RED CELL DISTRIBUTION WIDTH SD 45.6 fL 37.0-54.0 N (test code = RDW-SD) PLATELET COUNT (test code = 376 x10 3/uL 150-400 N PLT) MEAN PLATELET VOLUME (test code 9.3 fL 7.0-9.0 H = MPV) NEUTROPHIL % (test code = NT%) 77.7 % 56.0-77.0 H IMMATURE GRANULOCYTE % (test 1.0 % 0.0-2.0 N code = IG%) LYMPHOCYTE % (test code = LY%) 8.5 % 14.0-32.0 L MONOCYTE % (test code = MO%) 9.7 % 4.8-9.0 H EOSINOPHIL % (test code = EO%) 2.4 % 0.3-3.7 N BASOPHIL % (test code = BA%) 0.7 % 0.0-2.0 N NUCLEATED RBC % (test code = 0.0 % 0-0 N NRBC%) NEUTROPHIL # (test code = NT#) 7.64 x10 3/uL 2.0-7.6 H IMMATURE GRANULOCYTE # (test 0.10 x10 3/uL 0.00-0.03 H code = IG#) LYMPHOCYTE # (test code = LY#) 0.84 x10 3/uL 1.0-3.8 L MONOCYTE # (test code = MO#) 0.95 x10 3/uL 0.1-0.8 H EOSINOPHIL # (test code = EO#) 0.24 x10 3/uL 0.0-0.2 H BASOPHIL # (test code = BA#) 0.07 x10 3/uL 0.0-0.2 N NUCLEATED RBC # (test code = 0.00 x10 3/uL 0.0-0.1 N NRBC#) GLUCOSE [id number] 08:44:00 Test Item Value Reference Range Interpretation Comments GLUCOSE BEDSIDE (test 130 MG/DL 70-110 H Perfor med by certified code = 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[facility] - XR CHEST 1 [id number] 07:34:00 [facility] Chavez : 1955 Sex: M FAX: Karen Corley MD [phone] [place]: St: ADM FAX: Larry Mock MD [phone] FAX: Sobia Valdez MD [phone] FAX: Tom Toribio MD [phone] Name: CARLOS MANUEL DOUGLASS [facility] : 1955 Age/S:68/M [address] [place] [address] Unit #: [id number] Loc: G.2201 [place] [address] Phys: Sobia Ghosh [facility] Acct: [id number] Dis Date: Status: ADM IN PHONE #: [phone] Exam Date: 07/27/202359 FAX#: [phone] Reason: POST OP CVICU EXAMS: CPT CODE: [id number] XR CHEST 1 V 14452 EXAM: - XR CHEST 1 V HISTORY: POST OP CVICU LOCATION CODE:T18 COMPARISON: Prior day FINDINGS/ IMPRESSION: Lung apices are partially obscured by the patient's chin. Stable cardiomediastinal silhouette. Interval increase in small right pleural effusion and right basilar atelectasis. There is also slightly increased vascular congestion. No distinct left pleural effusion. No appreciable pneumothorax. No additional interval change. at 0734 Reported and signed by: Ondina Harris M.D. CC: Karen Higginbotham MD; Larry Chatman MD; Sobia Ghosh MD; Tom Richard MD Technologist: Afshin López, RT(R) Trnscrd Date/Time/By: 07/27/2023 (0734) : By: [email or web address] Orig Print D/T: S: 07/27/2023 (6885) PAGE 1 Signed ReportPLEURUAL FLD [id number] 03:27:00 Test Item Value Reference Range Interpretation Comments PLEURUAL FLD GLUCOSE (test code = 155 MG/DL GLUPL) PLEURAL FLD TOTAL [id number] 03:27:00 Test Item Value Reference Range Interpretation Comments PLEURAL FLD TOTAL PROTEIN (test 3.5 GM/DL code = PROTPL) PLEURAL FLD [id number] 03:27:00 Test Item Value Reference Range Interpretation Comments PLEURAL FLD LDH (test code = 334 UNITS/L LDHPL) PLERUAL FLD [id number] 03:27:00 Test Item Value Reference Range Interpretation Comments PLERUAL FLD 155 MG/DL See_Comment The Reference R liliya and GLUCOSE (test Method Perform ance code = GLUPL) specifications have not been established for this fluid. The test result should be correlated into the clinical contex t forinterpretati on. [Automated mess age] The system which ge nerated this result transmit chucho reference range : (). The reference range was not used to interpr et this result as luisa l/abnormal. PLEURAL FLD TOTAL [id number] 03:27:00 Test Item Value Reference Range Interpretation Comments PLEURAL FLD TOTAL 3.5 GM/DL See_Comment The Refere nce Range and PROTEIN (test Method Perform ance code = PROTPL) specification shave not been established for this fluid. The test result should be correlated into the clinical contex t forinterpretati on. [Automated mess age] The system which ge nerated this result transmit chucho reference range : (). The reference range was not used to interpr et this result as luisa l/abnormal. PLEURAL FLD [id number] 03:27:00 Test Item Value Reference Range Interpretation Comments PLEURAL FLD LDH 334 UNITS/L See_Comment Result is in INTERNATIONAL (test code = UNITS/LITERThe Reference LDHPL) Range and Metho d Performance specificationsh ave not been establishe d for this fluid. The test resultshould be correlated into the clinic al context forinterpretati on. [Automated mess age] The system which ge nerated this result tra nsmitted reference range : (). The reference range was not used to interpr et this result as luisa l/abnormal. BASIC METABOLIC [id number] 02:46:00 Test Item Value Reference Range Interpretation Comments SODIUM (test code = 132 mEq/L 134-147 L NA) POTASSIUM (test code 3.7 mEq/L 3.4-5.0 N = K) CHLORIDE (test code 98 mEq/L 100-108 L = CL) CARBON DIOXIDE (test 28 mEq/l 21-33 N code = CO2) ANION GAP (test code 10 0-20 N = GAP) GLUCOSE (test code = 125 mg/dL 77-141 N NOTE: N EW NORMAL RANGE GLU) BLOOD UREA NITROGEN 12 mg/dL 7-25 N NOTE: NE W NORMAL RANGE (test code = BUN) GLOMERULAR 81.5 80-90 N The Glomerular FILTRATION RATE Filtration R ate is a (test code = GFR) calculated parameterbased on serum Creatinine, pat ient age and sex. GFR va luesless than 60 mL/min/ 1.73 square meters a re indicative ofCh ronic Kidney Disease. Values less than 15 mL/min/1.73squa re meters indicate Kidney failure. The calculation forGFR is based on the CKD-EPI (2020) calculat ion. This formulais race indifferent and is the recommended for anabell for GFRby the Natio nal Kidney Foundati on for Adults.The GFR will not calculate if th e sex is unknown or if thepatient's ag e is <18 years. CREATININE (test 1.0 mg/dL 0.6-1.3 N code = CREAT) CALCIUM (test code = 7.8 mg/dL 8.0-10.5 L CA) [id number] 02:46:00 Test Item Value Reference Range Interpretation Comments MAGNESIUM (test code = 2.03 mg/dL 1.6-2.6 N NOTE: NEW NORMAL MAG) RANGE CBC W/AUTO [id number] 02:18:00 Test Item Value Reference Range Interpretation Comments WHITE BLOOD CELL (test code = 11.0 x10 3/uL 4.5-11.0 N WBC) RED BLOOD CELL (test code = 3.08 x10 6/uL 4.00-5.60 L RBC) HEMOGLOBIN (test code = HGB) 8.9 g/dL 12.5-16.9 L HEMATOCRIT (test code = HCT) 27.6 % 37.5-50.7 L MEAN CELL VOLUME (test code = 89.6 fL 81.0-99.0 N MCV) MEAN CELL HGB (test code = MCH) 28.9 pg 27.0-33.0 N MEAN CELL HGB CONCETRATION 32.2 g/dL 33.0-37.0 L (test code = MCHC) RED CELL DISTRIBUTION WIDTH CV 14.7 % 11.5-14.5 H (test code = RDW) RED CELL DISTRIBUTION WIDTH SD 45.9 fL 37.0-54.0 N (test code = RDW-SD) PLATELET COUNT (test code = 366 x10 3/uL 150-400 N PLT) MEAN PLATELET VOLUME (test code 9.3 fL 7.0-9.0 H = MPV) NEUTROPHIL % (test code = NT%) 78.6 % 56.0-77.0 H IMMATURE GRANULOCYTE % (test 0.8 % 0.0-2.0 N code = IG%) LYMPHOCYTE % (test code = LY%) 6.5 % 14.0-32.0 L MONOCYTE % (test code = MO%) 11.0 % 4.8-9.0 H EOSINOPHIL % (test code = EO%) 2.6 % 0.3-3.7 N BASOPHIL % (test code = BA%) 0.5 % 0.0-2.0 N NUCLEATED RBC % (test code = 0.0 % 0-0 N NRBC%) NEUTROPHIL # (test code = NT#) 8.61 x10 3/uL 2.0-7.6 H IMMATURE GRANULOCYTE # (test 0.09 x10 3/uL 0.00-0.03 H code = IG#) LYMPHOCYTE # (test code = LY#) 0.71 x10 3/uL 1.0-3.8 L MONOCYTE # (test code = MO#) 1.20 x10 3/uL 0.1-0.8 H EOSINOPHIL # (test code = EO#) 0.29 x10 3/uL 0.0-0.2 H BASOPHIL # (test code = BA#) 0.05 x10 3/uL 0.0-0.2 N NUCLEATED RBC # (test code = 0.00 x10 3/uL 0.0-0.1 N NRBC#) BASIC METABOLIC [id number] 21:11:00 Test Item Value Reference Range Interpretation Comments SODIUM (test code = 130 mEq/L 134-147 L NA) POTASSIUM (test code 3.6 mEq/L 3.4-5.0 N = K) CHLORIDE (test code 95 mEq/L 100-108 L = CL) CARBON DIOXIDE (test 28 mEq/l 21-33 N code = CO2) ANION GAP (test code 11 0-20 N = GAP) GLUCOSE (test code = 119 mg/dL 77-141 NOTE: N EW NORMAL RANGE GLU) BLOOD UREA NITROGEN 13 mg/dL 7-25 N NOTE: NE W NORMAL RANGE (test code = BUN) GLOMERULAR 81.5 80-90 N The Glomerular FILTRATION RATE Filtration R ate is a (test code = GFR) calculated parameterbased on serum Creatinine, pat ient age and sex. GFR va luesless than 60 mL/min/ 1.73 square meters a re indicative ofCh ronic Kidney Disease. Values less than 15 mL/min/1.73squa re meters indicate Kidney failure. The calculation forGFR is based on the CKD-EPI (2020) calculat ion. This formulais race indifferent and is the recommended for anabell for GFRby the [facility] Kidney Foundati on for Adults.The GFR will not calculate if th e sex is unknown or if thepatient's ag e is <18 years. CREATININE (test 1.0 mg/dL 0.6-1.3 N code = CREAT) CALCIUM (test code = 8.1 mg/dL 8.0-10.5 N CA) PLEURAL FLD CELL [id number] 17:22:00 Test Item Value Reference Range Interpretation Comments PLEURAL FLD COLOR (test code RED = COLPL) PLEURAL FLD APPEARANCE (test HAZY code = APPPL) PLEURAL FLD WBC (test code = 1152 cells/uL 0-500 H WBCPL) PLEURAL FLD RBC (test code = 900756 Cells/uL 0-0 H RBCPL) PLEURAL FLD POLY (test code = 78 % POLYPL) PLEURAL FLD LYMPHOCYTE (test 14 % code = LYMPHPL) PLEURAL FLD MONOCYTE (test 2 % code = MONOPL) PLEURAL FLD MACROPHAGE (test 6 % code = MACPL) PLEURAL FLD MESOTHELIAL (test FEW code = MESPL) BASIC METABOLIC [id number] 14:17:00 Test Item Value Reference Range Interpretation Comments SODIUM (test code = 132 mEq/L 134-147 L NA) POTASSIUM (test code 3.8 mEq/L 3.4-5.0 N = K) CHLORIDE (test code 97 mEq/L 100-108 L = CL) CARBON DIOXIDE (test 29 mEq/l 21-33 N code = CO2) ANION GAP (test code 10 0-20 N = GAP) GLUCOSE (test code = 182 mg/dL 77-141 H NOTE: N EW NORMAL RANGE GLU) BLOOD UREA NITROGEN 15 mg/dL 7-25 N NOTE: NE W NORMAL RANGE (test code = BUN) GLOMERULAR 81.5 80-90 N The Glomerular FILTRATION RATE Filtration R ate is a (test code = GFR) calculated parameterbased on serum Creatinine, pat ient age and sex. GFR va luesless than 60 mL/min/ 1.73 square meters a re indicative ofCh ronic Kidney Disease. Values less than 15 mL/min/1.73squa re meters indicate Kidney failure. The calculation forGFR is based on the CKD-EPI (2020) calculat ion. This formulais race indifferent and is the recommended for anabell for GFRby the [facility] Kidney Foundati on for Adults.The GFR will not calculate if th e sex is unknown or if thepatient's ag e is <18 years. CREATININE (test 1.0 mg/dL 0.6-1.3 N code = CREAT) CALCIUM (test code = 8.0 mg/dL 8.0-10.5 N CA) [id number] 14:05:00 Test Item Value Reference Range Interpretation Comments SODIUM (test code = NA) 133 mEq/L 134-147 L COMMENTS: Draw serum sodium levels q6hrs for the first 24 hours & q12hrs for theComment: next 24hrs with initiation of Tolvaptan or for any dose change.CBC W/O [id number] 14:00:00 Test Item Value Reference Range Interpretation Comments WHITE BLOOD CELL (test code = 13.4 x10 3/uL 4.5-11.0 H WBC) RED BLOOD CELL (test code = 3.12 x10 6/uL 4.00-5.60 L RBC) HEMOGLOBIN (test code = HGB) 9.2 g/dL 12.5-16.9 L HEMATOCRIT (test code = HCT) 27.7 % 37.5-50.7 L MEAN CELL VOLUME (test code = 88.8 fL 81.0-99.0 N MCV) MEAN CELL HGB (test code = MCH) 29.5 pg 27.0-33.0 N MEAN CELL HGB CONCETRATION 33.2 g/dL 33.0-37.0 N (test code = MCHC) RED CELL DISTRIBUTION WIDTH CV 14.8 % 11.5-14.5 H (test code = RDW) RED CELL DISTRIBUTION WIDTH SD 46.0 fL 37.0-54.0 N (test code = RDW-SD) PLATELET COUNT (test code = 391 x10 3/uL 150-400 N PLT) MEAN PLATELET VOLUME (test code 9.3 fL 7.0-9.0 H = MPV) - XR CHEST 1 [id number] 13:44:00 [facility] : 1955 Sex: M FAX: Karen Corley MD [phone] [place]: St: ADM FAX: Larry Mock MD [phone] FAX: Tom Toribio MD [phone] FAX: Luz Kunz [facility] [phone] Name: CARLOS MANUEL DOUGLASS [facility] Martin Rodriguez : 1955 Age/S:68/M [address] [place] [address] Unit #: [id number] Loc: [address] [address] Phys: [facility] Ac[facility]: [id number] Dis Date: Status: ADM IN PHONE #: [phone] Exam Date: 07/26/2023 1315FAX #: [phone] Reason: Post thoracentesis EXAMS: CPT CODE: [id number] XR CHEST 1 V 98013 EXAMINATION: - XR CHEST 1 V HISTORY: Thoracentesis COMPARISON: Chest x-ray performed earlier the same day LOCATION CODE: C3 FINDINGS: Single frontal view of the chest is submitted for evaluation. Patient has undergone interval left thoracentesis with decrease in left pleural fluid and improved aeration of the left lung. There has been no other significant change in appearance of the chest IMPRESSION: Postthoracentesis changes, without acute abnormality at 0727 Reported and signed by: Tanna Oliveira M.D. CC: Karen Higginbotham MD; Larry Chatman MD; Tom Richard MD; Luz Avelar Technologist: RT Samy(Maryan) Trnscrd Date/Time/By: 07/26/2023 (7531) : By: [email or web address] Orig Print D/T: S: 07/26/2023 (0732) PAGE 1 Signed Report- XR CHEST 1 [id number] 07:04:[address] [facility] [place] [place] MARTIN BUNOLAName: CARLOS MANUEL DOUGLASS : 1955 Sex: M FAX: Karen Corley MD [phone] [place]: St: ADM FAX: Larry Mock MD [phone] FAX: Sobia Valdez MD [phone] FAX: Tom Toribio MD [phone] Name: CARLOS MANUEL DOUGLASS [facility] : 1955 Age/S:68/M [address] [place] [address] Unit #: [id number] Loc: G[address] [place] [address] Phys: Sobia Ghosh AMD Acct: [id number] Dis Date: Status: ADM IN PHONE #: [phone] Exam Date: 07/26/2023509 FAX #: [phone] Reason: POST OP CVICU EXAMS: CPT CODE: [id number] XR CHEST 1 V 54575 EXAM: - XR CHEST1 V Location code:C3 HISTORY: POST OP CVICU COMPARISON: 07/25/2023 IMPRESSION: Single AP view of the chest is provided. Median sternotomy changes are again seen. Cardiomegaly persists. Bilateral alveolar opacities favoring edema similar. Small left effusion is unchanged. There is no pneumothorax. Noadditional interval change. at 0704 Reported and signed by: Germain Godfrey M.D. CC: Karen Higginbotham MD; Larry Logan; Sobia Ghosh MD; Tom Richard MD Technologist: Adrianna Luis, RT(R) Trnscrd Date/Time/By: 07/26/2023 (07) : By: [email or web address] Orig Print D/T: S: 07/26/2023 (9371) PAGE 1 Signed ReportBASIC METABOLIC [id number] 03:02:00 Test Item Value Reference Range Interpretation Comments SODIUM (test code = 134 mEq/L 134-147 N NA) POTASSIUM (test code 3.6 mEq/L 3.4-5.0 N = K) CHLORIDE (test code 97 mEq/L 100-108 L = CL) CARBON DIOXIDE (test 30 mEq/l 21-33 N code = CO2) ANION GAP (test code 10 0-20 N = GAP) GLUCOSE (test code = 132 mg/dL 77-141 N NOTE: N EW NORMAL RANGE GLU) BLOOD UREA NITROGEN 15 mg/dL 7-25 N NOTE: NE W NORMAL RANGE (test code = BUN) GLOMERULAR 92.5 80-90 H The Glomerular FILTRATION RATE Filtration R ate is a (test code = GFR) calculated parameterbased on serum Creatinine, pat ient age and sex. GFR va luesless than 60 mL/min/ 1.73 square meters a re indicative ofCh ronic Kidney Disease. Values less than 15 mL/min/1.73squa re meters indicate Kidney failure. The calculation forGFR is based on the CKD-EPI (2020) calculat ion. This formulais race indifferent and is the recommended for anabell for GFRby the Nat nal Kidney Foundati on for Adults.The GFR will not calculate if th e sex is unknown or if thepatient's ag e is <18 years. CREATININE (test 0.9 mg/dL 0.6-1.3 N code = CREAT) CALCIUM (test code = 8.4 mg/dL 8.0-10.5 N CA) [id number] 03:02:00 Test Item Value Reference Range Interpretation Comments MAGNESIUM (test code = 2.25 mg/dL 1.6-2.6 N NOTE: NEW NORMAL MAG) RANGE CBC W/AUTO [id number] 02:24:00 Test Item Value Reference Range Interpretation Comments WHITE BLOOD CELL (test code = 15.2 x10 3/uL 4.5-11.0 H WBC) RED BLOOD CELL (test code = 3.30 x10 6/uL 4.00-5.60 L RBC) HEMOGLOBIN (test code = HGB) 9.6 g/dL 12.5-16.9 L HEMATOCRIT (test code = HCT) 29.3 % 37.5-50.7 L MEAN CELL VOLUME (test code = 88.8 fL 81.0-99.0 N MCV) MEAN CELL HGB (test code = 29.1 pg 27.0-33.0 N MCH) MEAN CELL HGB CONCETRATION 32.8 g/dL 33.0-37.0 L (test code = MCHC) RED CELL DISTRIBUTION WIDTH CV 14.7 % 11.5-14.5 H (test code = RDW) RED CELL DISTRIBUTION WIDTH SD 45.6 fL 37.0-54.0 N (test code = RDW-SD) PLATELET COUNT (test code = 388 x10 3/uL 150-400 N PLT) MEAN PLATELET VOLUME (test 9.5 fL 7.0-9.0 H code = MPV) NEUTROPHIL % (test code = NT%) 81.7 % 56.0-77.0 H IMMATURE GRANULOCYTE % (test 1.4 % 0.0-2.0 N code = IG%) LYMPHOCYTE % (test code = LY%) 4.3 % 14.0-32.0 L MONOCYTE % (test code = MO%) 9.6 % 4.8-9.0 H EOSINOPHIL % (test code = EO%) 2.6 % 0.3-3.7 N BASOPHIL % (test code = BA%) 0.4 % 0.0-2.0 N NUCLEATED RBC % (test code = 0.0 % 0-0 N NRBC%) NEUTROPHIL # (test code = NT#) 12.41 x10 3/uL 2.0-7.6 H IMMATURE GRANULOCYTE # (test 0.21 x10 3/uL 0.00-0.03 H code = IG#) LYMPHOCYTE # (test code = LY#) 0.65 x10 3/uL 1.0-3.8 L MONOCYTE # (test code = MO#) 1.45 x10 3/uL 0.1-0.8 H EOSINOPHIL # (test code = EO#) 0.39 x10 3/uL 0.0-0.2 H BASOPHIL # (test code = BA#) 0.06 x10 3/uL 0.0-0.2 N NUCLEATED RBC # (test code = 0.00 x10 3/uL 0.0-0.1 N NRBC#) POC ARTERIAL BLOOD [id number] 02:09:00 Test Item Value Reference Range Interpretation Comments POC ARTERIAL BLOOD GAS PH (test 7.490 7.35-7.45 H code = POCPHA) POC ARTERIAL BLOOD GAS PCO2 (test 38.1 mmHg 35.0-45 N code = WIAFIN8I) POC TCO2 ARTERIAL (test code = 30.2 POCTCO2) POC ARTERIAL BLOOD GAS PO2 (test 80.8 mmHg 80-100.0 N code = EUWQK9R) POC HCO3 ARTERIAL (test code = 29.0 MMOL/L 22.0-26.0 HH VYPRHU2X) POC BASE EXCESS (test code = 5.7 MMOL/L -4.0-4.0 H POCBEA) POC O2 SATURATION (test code = 96.8 % 90-100 N POCO2S) ABG DELIVERY (test code = CELIA) 2L NC ABG SITE (test code = SITEA) Art Line BASIC METABOLIC [id number] 02:09:00 Test Item Value Reference Range Interpretation Comments SODIUM (test code = NA/ABG) 133 mmol/L 134-147 L POTASSIUM (test code = K/ABG) 3.5 mmol/L 3.4-5.0 N CHLORIDE (test code = CL/ABG) 95 mmol/L 100-108 L CREATININE ABG (test code = 0.8 mg/dL 0.8-1.3 N CREAABG) POC IONIZED CALCIUM (test code = 1.17 MMOL/L 1.12-1.32 N POCCA) POC GLUCOSE (test code = POCGLU) 143 MG/DL 70-110 H HEMOGLOBIN [id number] 02:09:00 Test Item Value Reference Range Interpretation Comments HEMOGLOBIN ABG (test code = 10.5 G/DL 12.5-16.9 L HGB/ABG) [id number] 02:09:00 Test Item Value Reference Range Interpretation Comments HEMATOCRIT (test code = HCT/ABG) 31 % 37.5-50.7 L POC LACTIC [id number] 02:09:00 Test Item Value Reference Range Interpretation Comments POC LACTIC ACID (test code = 0.9 mmol/l 0.9-1.7 N POCLAC) BASIC METABOLIC [id number] 21:15:00 Test Item Value Reference Range Interpretation Comments SODIUM (test code = 130 mEq/L 134-147 L NA) POTASSIUM (test code 3.7 mEq/L 3.4-5.0 N = K) CHLORIDE (test code 95 mEq/L 100-108 L = CL) CARBON DIOXIDE (test 28 mEq/l 21-33 N code = CO2) ANION GAP (test code 11 0-20 N = GAP) GLUCOSE (test code = 165 mg/dL 77-141 H NOTE: N EW NORMAL RANGE GLU) BLOOD UREA NITROGEN 15 mg/dL 7-25 N NOTE: NE W NORMAL RANGE (test code = BUN) GLOMERULAR 81.5 80-90 N The Glomerular FILTRATION RATE Filtration R ate is a (test code = GFR) calculated parameterbased on serum Creatinine, pat ient age and sex. GFR va luesless than 60 mL/min/ 1.73 square meters a re indicative ofCh ronic Kidney Disease. Values less than 15 mL/min/1.73squa re meters indicate Kidney failure. The calculation forGFR is based on the CKD-EPI (2020) calculat ion. This formulais race indifferent and is the recommended for anabell for GFRby the [facility] Kidney Foundati on for Adults.The GFR will not calculate if th e sex is unknown or if thepatient's ag e is <18 years. CREATININE (test 1.0 mg/dL 0.6-1.3 N code = CREAT) CALCIUM (test code = 8.4 mg/dL 8.0-10.5 N CA) [id number] 21:15:00 Test Item Value Reference Range Interpretation Comments MAGNESIUM (test code = 2.43 mg/dL 1.6-2.6 N NOTE: NEW NORMAL MAG) RANGE BASIC METABOLIC [id number] 14:01:00 Test Item Value Reference Range Interpretation Comments SODIUM (test code = 132 mEq/L 134-147 L NA) POTASSIUM (test code 3.7 mEq/L 3.4-5.0 N = K) CHLORIDE (test code 98 mEq/L 100-108 L = CL) CARBON DIOXIDE (test 28 mEq/l 21-33 N code = CO2) ANION GAP (test code 10 0-20 N = GAP) GLUCOSE (test code = 168 mg/dL 77-141 H NOTE: N EW NORMAL RANGE GLU) BLOOD UREA NITROGEN 16 mg/dL 7-25 N NOTE: NE W NORMAL RANGE (test code = BUN) GLOMERULAR 81.5 80-90 N The Glomerular FILTRATION RATE Filtration R ate is a (test code = GFR) calculated parameterbased on serum Creatinine, pat ient age and sex. GFR va luesless than 60 mL/min/ 1.73 square meters a re indicative ofCh ronic Kidney Disease. Values less than 15 mL/min/1.73squa re meters indicate Kidney failure. The calculation forGFR is based on the CKD-EPI (2020) calculat ion. This formulais race indifferent and is the recommended for anabell for GFRby the Natio nal Kidney Foundati on for Adults.The GFR will not calculate if th e sex is unknown or if thepatient's ag e is <18 years. CREATININE (test 1.0 mg/dL 0.6-1.3 N code = CREAT) CALCIUM (test code = 8.3 mg/dL 8.0-10.5 N CA) [id number] 14:01:00 Test Item Value Reference Range Interpretation Comments MAGNESIUM (test code = 2.24 mg/dL 1.6-2.6 N NOTE: NEW NORMAL MAG) RANGE - XR CHEST 1 [id number] 08:10:00 [facility] : 1955 Sex: M FAX: Jigar Gilmore MD [place]: St: ADM FAX: Karen Corley MD [phone] FAX: Larry Mock MD [phone] FAX: Tom Toribio MD [phone] Name: CARLOS MANUEL DOUGLASS [facility] [place] : 1955 Age/S: 68/M [address] [place] [address] Unit #: [id number] Loc: [address] [place] [address] Phys: Jigar Hodges MD Acct: [id number] Dis Date: Status: ADM IN PHONE #: [phone] Exam Date: 07/25/2023 1024 FAX #: [phone] Reason: S/P CABG EXAMS: CPT CODE: [id number] XR CHEST 1 V [id number] EXAM: - XR CHEST 1 V Location code:C3 HISTORY: S/P CABG COMPARISON: 07/24/2023 IMPRESSION: Single AP view of the chest is provided. Sternotomy wires are present. Left basilar opacity favoring small effusion with edema is similar. The right lung is clear. There is no pneumothorax. No additional interval change. at 0810 Reported and signed by: Germain Godfrey M.D. CC: Jigar Hodges MD; Karen Higginbotham MD; Larry Chatman MD; Tom Richard MD Technologist: Christiano Corey, RT(R); Dorothy Figueroa RT(R) [facility] Date/Time/By: 07/25/2023 (0810) : By: [email or web address] Orig Print D/T: S: 07/25/2023 (1024) PAGE 1 Signed [id number] 07:19:00 Test Item Value Reference Range Interpretation Comments SODIUM (test code = NA) 133 mEq/L 134-147 L COMMENTS: Draw serum sodium levels q6hrs for the first 24 hours & q12hrs for theComment: next 24 hrs with initiation of Tolvaptan or for any dose change. POC ARTERIAL BLOOD [id number] 04:40:00 Test Item Value Reference Range Interpretation Comments POC ARTERIAL BLOOD GAS PH (test 7.423 7.35-7.45 N code = POCPHA) POC ARTERIAL BLOOD GAS PCO2 (test 44.3 mmHg 35.0-45 N code = [id number]) POC TCO2 ARTERIAL (test code = 30.3 POCTCO2) POC ARTERIAL BLOOD GAS PO2 (test 89.8 mmHg 80-100.0 N code = LJTEP2I) POC HCO3 ARTERIAL (test code = 29.0 MMOL/L 22.0-26.0 HH [id number]) POC BASE EXCESS (test code = 4.5 MMOL/L -4.0-4.0 H POCBEA) POC O2 SATURATION (test code = 97.0 % 90-100 N POCO2S) ABG DELIVERY (test code = CELIA) Cannula ABG TEMPERATURE (test code = 98.7 F TEMPA) ABG SITE (test code = SITEA) Art Line BASIC METABOLIC [id number] 04:40:00 Test Item Value Reference Range Interpretation Comments SODIUM (test code = NA/ABG) 133 mmol/L 134-147 L POTASSIUM (test code = K/ABG) 4.1 mmol/L 3.4-5.0 N CHLORIDE (test code = CL/ABG) 95 mmol/L 100-108 L CREATININE ABG (test code = 0.9 mg/dL 0.8-1.3 N CREAABG) POC IONIZED CALCIUM (test code = 1.19 MMOL/L 1.12-1.32 N POCCA) POC GLUCOSE (test code = POCGLU) 140 MG/DL 70-110 H HEMOGLOBIN [id number] 04:40:00 Test Item Value Reference Range Interpretation Comments HEMOGLOBIN ABG (test code = 10.1 G/DL 12.5-16.9 L HGB/ABG) [id number] 04:40:00 Test Item Value Reference Range Interpretation Comments HEMATOCRIT (test code = HCT/ABG) 30 % 37.5-50.7 L POC LACTIC [id number] 04:40:00 Test Item Value Reference Range Interpretation Comments POC LACTIC ACID (test code = 0.9 mmol/l 0.9-1.7 N POCLAC) BASIC METABOLIC [id number] 03:27:00 Test Item Value Reference Range Interpretation Comments SODIUM (test code = 133 mEq/L 134-147 L NA) POTASSIUM (test code 4.2 mEq/L 3.4-5.0 N = K) CHLORIDE (test code 97 mEq/L 100-108 L = CL) CARBON DIOXIDE (test 29 mEq/l 21-33 N code = CO2) ANION GAP (test code 12 0-20 N = GAP) GLUCOSE (test code = 137 mg/dL 77-141 N NOTE: N EW NORMAL RANGE GLU) BLOOD UREA NITROGEN 18 mg/dL 7-25 N NOTE: NE W NORMAL RANGE (test code = BUN) GLOMERULAR 81.5 80-90 N The Glomerular FILTRATION RATE Filtration R ate is a (test code = GFR) calculated parameterbased on serum Creatinine, pat ient age and sex. GFR va luesless than 60 mL/min/ 1.73 square meters a re indicative ofCh ronic Kidney Disease. Values less than 15 mL/min/1.73squa re meters indicate Kidney failure. The calculation forGFR is based on the CKD-EPI (2020) calculat ion. This formulais race indifferent and is the recommended for anabell for GFRby the [facility] on for Adults.The GFR will not calculate if th e sex is unknown or if thepatient's ag e is <18 years. CREATININE (test 1.0 mg/dL 0.6-1.3 N code = CREAT) CALCIUM (test code = 8.3 mg/dL 8.0-10.5 N CA) [id number] 03:27:00 Test Item Value Reference Range Interpretation Comments MAGNESIUM (test code = 2.32 mg/dL 1.6-2.6 N NOTE: NEW NORMAL MAG) RANGE CALCIUM [id number] 03:27:00 Test Item Value Reference Range Interpretation Comments CALCIUM IONIZED (test code = BOLIVAR) 1.10 MMOL/L 1.09-1.30 N CBC W/AUTO [id number] 02:32:00 Test Item Value Reference Range Interpretation Comments WHITE BLOOD CELL (test code = 16.8 x10 3/uL 4.5-11.0 H WBC) RED BLOOD CELL (test code = 3.33 x10 6/uL 4.00-5.60 L RBC) HEMOGLOBIN (test code = HGB) 9.6 g/dL 12.5-16.9 L HEMATOCRIT (test code = HCT) 29.5 % 37.5-50.7 L MEAN CELL VOLUME (test code = 88.6 fL 81.0-99.0 N MCV) MEAN CELL HGB (test code = 28.8 pg 27.0-33.0 N MCH) MEAN CELL HGB CONCETRATION 32.5 g/dL 33.0-37.0 L (test code = MCHC) RED CELL DISTRIBUTION WIDTH CV 14.5 % 11.5-14.5 N (test code = RDW) RED CELL DISTRIBUTION WIDTH SD 44.5 fL 37.0-54.0 N (test code = RDW-SD) PLATELET COUNT (test code = 348 x10 3/uL 150-400 N PLT) MEAN PLATELET VOLUME (test 9.9 fL 7.0-9.0 H code = MPV) NEUTROPHIL % (test code = NT%) 82.5 % 56.0-77.0 H IMMATURE GRANULOCYTE % (test 1.9 % 0.0-2.0 N code = IG%) LYMPHOCYTE % (test code = LY%) 4.2 % 14.0-32.0 L MONOCYTE % (test code = MO%) 10.2 % 4.8-9.0 H EOSINOPHIL % (test code = EO%) 0.8 % 0.3-3.7 N BASOPHIL % (test code = BA%) 0.4 % 0.0-2.0 N NUCLEATED RBC % (test code = 0.0 % 0-0 N NRBC%) NEUTROPHIL # (test code = NT#) 13.90 x10 3/uL 2.0-7.6 H IMMATURE GRANULOCYTE # (test 0.32 x10 3/uL 0.00-0.03 H code = IG#) LYMPHOCYTE # (test code = LY#) 0.71 x10 3/uL 1.0-3.8 L MONOCYTE # (test code = MO#) 1.71 x10 3/uL 0.1-0.8 H EOSINOPHIL # (test code = EO#) 0.13 x10 3/uL 0.0-0.2 N BASOPHIL # (test code = BA#) 0.07 x10 3/uL 0.0-0.2 N NUCLEATED RBC # (test code = 0.00 x10 3/uL 0.0-0.1 N NRBC#) [id number] 21:32:00 Test Item Value Reference Range Interpretation Comments SODIUM (test code = NA) 130 mEq/L 134-147 L COMMENTS: Draw serum sodium levels q6hrs for the first 24 hours & q12hrs for theComment: next 24hrs with initiation of Tolvaptan or for any dose change. PROTHROMBIN [id number] 18:03:00 Test Item Value Reference Range Interpretation Comments PROTHROMBIN TIME 15.7 SECONDS 9.3-12.9 H PATIENT (test code = PTP) INTERNATIONAL NORMAL 1.4 0.8-1.2 H TARGE T INR BY RATIO (test code = INDICATIO N Indication INR) INR1. Prophylax is of venous thrombos is 2.0 - 3.0 (orthoped ic surgery), Proph ylaxis of venous throm bosis (other than hig h-risk surgery), Treat ment of Deep Vein Thrombosis/Pulm onary Embolism, Preve ntion of systemic emb olism - Tissue heart va lves, Acute Myocardia l Infarction (to prevent systemic emboli sm), Valvular heart disease, Atrial Fibrillation, Bileaflet mecha nical valve in aortic position.2. Mec hanical prosthetic valv es (high risk), 2. 5 - 3.5 Presence of Lup us Anticoagulant o r Antiphospholipi d Antibodies, Pre vention of systemic emb olism - Acute Myocardia l Infarction (to prevent recurrent infar ct). THROMBOPLASTIN TIME [id number] 18:03:00 Test Item Value Reference Range Interpretation Comments THROMBOPLASTIN TIME 28.8 Seconds 25.0-39.5 N Therape utic Range: PARTIAL (test code = 50.4 - 88.3 Seconds PTT) Effective 01/24/2019 BASIC METABOLIC [id number] 14:01:00 Test Item Value Reference Range Interpretation Comments SODIUM (test code = 126 mEq/L 134-147 L NA) POTASSIUM (test code 4.2 mEq/L 3.4-5.0 N = K) CHLORIDE (test code 92 mEq/L 100-108 L = CL) CARBON DIOXIDE (test 25 mEq/l 21-33 N code = CO2) ANION GAP (test code 13 0-20 N = GAP) GLUCOSE (test code = 166 mg/dL 77-141 H NOTE: N EW NORMAL RANGE GLU) BLOOD UREA NITROGEN 18 mg/dL 7-25 N NOTE: NE W NORMAL RANGE (test code = BUN) GLOMERULAR 81.5 80-90 N The Glomerular FILTRATION RATE Filtration R ate is a (test code = GFR) calculated parameterbased on serum Creatinine, pat ient age and sex. GFR v aluesless than 60 mL/min/ 1.73 square meters a re indicative ofCh ronic Kidney Disease. Values less than 15 mL/min/1.73squa re meters indicate Kidney failure. The calculation forGFR is based on the CKD-EPI (2020) calculat ion. This formulais race indifferent and is the recommended for anabell for GFRby the [facility] on for Adults.The GFR will not calculate if th e sex is unknown or if thepatient's ag e is <18 years. CREATININE (test 1.0 mg/dL 0.6-1.3 N code = CREAT) CALCIUM (test code = 8.1 mg/dL 8.0-10.5 N CA) [id number] 14:01:00 Test Item Value Reference Range Interpretation Comments MAGNESIUM (test code = 2.33 mg/dL 1.6-2.6 N NOTE: NEW NORMAL MAG) RANGE CALCIUM [id number] 14:01:00 Test Item Value Reference Range Interpretation Comments CALCIUM IONIZED (test code = BOLIVAR) 1.01 MMOL/L 1.09-1.30 L POC ARTERIAL BLOOD [id number] 13:25:00 Test Item Value Reference Range Interpretation Comments POC ARTERIAL BLOOD GAS PH (test 7.447 7.35-7.45 N code = POCPHA) POC ARTERIAL BLOOD GAS PCO2 (test 39.3 mmHg 35.0-45 N code = TEGDEI2Z) POC TCO2 ARTERIAL (test code = 28.4 POCTCO2) POC ARTERIAL BLOOD GAS PO2 (test 71.3 mmHg 80-100.0 L code = EJAHJ6F) POC HCO3 ARTERIAL (test code = 27.2 MMOL/L 22.0-26.0 H [id number]) POC BASE EXCESS (test code = 3.1 MMOL/L -4.0-4.0 N POCBEA) POC O2 SATURATION (test code = 95.1 % 90-100 N POCO2S) ABG DELIVERY (test code = CELIA) Cannula ABG TEMPERATURE (test code = 98 F TEMPA) ABG SITE (test code = SITEA) Art Line BASIC METABOLIC [id number] 13:25:00 Test Item Value Reference Range Interpretation Comments SODIUM (test code = NA/ABG) 125 mmol/L 134-147 L POTASSIUM (test code = K/ABG) 4.2 mmol/L 3.4-5.0 N CHLORIDE (test code = CL/ABG) 91 mmol/L 100-108 L CREATININE ABG (test code = 0.9 mg/dL 0.8-1.3 N CREAABG) POC IONIZED CALCIUM (test code = 1.13 MMOL/L 1.12-1.32 N POCCA) POC GLUCOSE (test code = POCGLU) 173 MG/DL 70-110 H HEMOGLOBIN [id number] 13:25:00 Test Item Value Reference Range Interpretation Comments HEMOGLOBIN ABG (test code = 10.8 G/DL 12.5-16.9 L HGB/ABG) [id number] 13:25:00 Test Item Value Reference Range Interpretation Comments HEMATOCRIT (test code = HCT/ABG) 32 % 37.5-50.7 L - US SOFT TISSUE [id number] 10:28:00 [facility] : 1955 Sex: M Name:CARLOS [facility]EL [facility]OUGLASS [facility] : 1955 Age/S: 68 / M [address] [place] [address] Unit #: [id number] Loc: [place] [address] Phys: Luz Avelar Acct: [id number] Dis Date: Status: ADM IN PHONE #: [phone] Exam Date: 07/24/2023 1024 FAX #: [phone] Reason: EVAL LEFT CHEST FOR POSSIBLE THORA EXAMS: CPT CODE: [id number] US SOFT TISSUE TORSO 36078 EXAM: - US SOFT TISSUE TORSO LOCATION:C3 HISTORY: EVAL LEFT CHEST FOR POSSIBLE THORA COMPARISON: None available at the time of interpretation. TECHNIQUE: Focused grayscale sonogram of the pleural space. FINDINGS: Moderate right and large left pleural effusions. IMPRESSION: As above. Electronically Signed by Mar Canas on 1 at 1028 Reported and signed by: Crispin Canas M.D. CC: Karen Higginbotham MD; Larry Chatman MD; Tom Richard MD; Luz Avelar Technologist: Florence Ashley RDMS(AB) Trnscb Date/Time: 07/24/2023 (1028) [email or web address] Orig Print D/T: S: 07/24/2023 (1031) Probe: PAGE 1 Signed Report [id number] 07:25:00 Test Item Value Reference Range Interpretation Comments PHOSPHOROUS (test code = PHOS) 3.8 MG/DL 2.5-4.9 N [id number] 07:25:00 Test Item Value Reference Range Interpretation Comments MAGNESIUM (test code = 2.29 mg/dL 1.6-2.6 N NOTE: NEW NORMAL MAG) RANGE CALCIUM [id number] 07:25:00 Test Item Value Reference Range Interpretation Comments CALCIUM IONIZED (test code = BOLIVAR) 1.12 MMOL/L 1.09-1.30 N - XR CHEST 1 [id number] 06:59:00 [facility] : 1955 Sex: M FAX: Karen Corley MD [phone] [place]: St: ADM FAX: Larry Mock MD [phone] FAX: Juan Pablo Osborne MD [phone] FAX: Tom Toribio MD [phone] Name: CARLOS MANUEL DOUGLASS [facility] [place] : 1955 Age/S:68/M [address] [place] [address] Unit #: [id number] Loc: [address] [place] [address] Phys: Juan Pablo Mast [facility] Acct: [id number] Dis Date: Status: ADM IN PHONE #: [phone] Exam Date: 07/24/2023 0403 FAX #: [phone] Reason: SOB EXAMS: CPT CODE: [id number] XR CHEST 1 V 35892 - XR CHEST 1 V, :39 AM Reason For Examination: SOB Comparison: Exam of one day prior Location:P14 Findings LUNGS: No definite pulmonary edema or consolidation PLEURA: No pleural effusions CARDIOMEDIASTINAL SILHOUETTE Enlarged cardiac silhouette is similar to prior IMPRESSION: Enlarged cardiac silhouette is similar to prior at 0659 Reportedand signed by: Lavinia Salomon M.D. CC: Karen Higginbotham MD; Larry Chatman MD; Juan Pablo Mast MD; Tom Richard MD Technologist: Lul Garza RT(R) Trnscrd Date/Time/By: 07/24/2023 (0659) : By: [email or web address] Orig Print D/T: S: 07/24/2023 (0703) PAGE 1 Signed ReportLACTIC [id number] 06:57:00 Test Item Value Reference Range Interpretation Comments LACTIC ACID (test code = LACT) 1.3 mmol/L 0.4-1.9 N BASIC METABOLIC [id number] 04:11:00 Test Item Value Reference Range Interpretation Comments SODIUM (test code = 125 mEq/L 134-147 L NA) POTASSIUM (test code 3.9 mEq/L 3.4-5.0 N = K) CHLORIDE (test code 91 mEq/L 100-108 L = CL) CARBON DIOXIDE (test 26 mEq/l 21-33 N code = CO2) ANION GAP (test code 12 0-20 N = GAP) GLUCOSE (test code = 114 mg/dL 77-141 N NOTE: N EW NORMAL RANGE GLU) BLOOD UREA NITROGEN 17 mg/dL 7-25 N NOTE: NE W NORMAL RANGE (test code = BUN) GLOMERULAR 72.7 80-90 L The Glomerular FILTRATION RATE Filtration R ate is a (test code = GFR) calculated parameterbased on serum Creatinine, pat ient age and sex. GFR va luesless than 60 mL/min/ 1.73 square meters a re indicative ofCh ronic Kidney Disease. Values less than 15 mL/min/1.73squa re meters indicate Kidney failure. The calculation forGFR is based on the CKD-EPI (2020) calculat ion. This formulais race indifferent and is the recommended for anabell for GFRby the Natio nal Kidney Foundati on for Adults.The GFR will not calculate if th e sex is unknown or if thepatient's ag e is <18 years. CREATININE (test 1.1 mg/dL 0.6-1.3 N code = CREAT) CALCIUM (test code = 8.1 mg/dL 8.0-10.5 N CA) [id number] 04:11:00 Test Item Value Reference Range Interpretation Comments PHOSPHOROUS (test code = PHOS) 3.8 MG/DL 2.5-4.9 N [id number] 04:11:00 Test Item Value Reference Range Interpretation Comments MAGNESIUM (test code = 2.20 mg/dL 1.6-2.6 N NOTE: NEW NORMAL MAG) RANGE CBC W/AUTO [id number] 03:54:00 Test Item Value Reference Range Interpretation Comments WHITE BLOOD CELL (test code = 13.6 x10 3/uL 4.5-11.0 H WBC) RED BLOOD CELL (test code = 3.40 x10 6/uL 4.00-5.60 L RBC) HEMOGLOBIN (test code = HGB) 9.9 g/dL 12.5-16.9 L HEMATOCRIT (test code = HCT) 30.2 % 37.5-50.7 L MEAN CELL VOLUME (test code = 88.8 fL 81.0-99.0 N MCV) MEAN CELL HGB (test code = 29.1 pg 27.0-33.0 N MCH) MEAN CELL HGB CONCETRATION 32.8 g/dL 33.0-37.0 L (test code = MCHC) RED CELL DISTRIBUTION WIDTH CV 14.6 % 11.5-14.5 H (test code = RDW) RED CELL DISTRIBUTION WIDTH SD 44.1 fL 37.0-54.0 N (test code = RDW-SD) PLATELET COUNT (test code = 265 x10 3/uL 150-400 N PLT) MEAN PLATELET VOLUME (test 10.3 fL 7.0-9.0 H code = MPV) NEUTROPHIL % (test code = NT%) 76.9 % 56.0-77.0 N IMMATURE GRANULOCYTE % (test 3.1 % 0.0-2.0 H code = IG%) LYMPHOCYTE % (test code = LY%) 6.1 % 14.0-32.0 L MONOCYTE % (test code = MO%) 12.8 % 4.8-9.0 H EOSINOPHIL % (test code = EO%) 0.7 % 0.3-3.7 N BASOPHIL % (test code = BA%) 0.4 % 0.0-2.0 N NUCLEATED RBC % (test code = 0.0 % 0-0 N NRBC%) NEUTROPHIL # (test code = NT#) 10.43 x10 3/uL 2.0-7.6 H IMMATURE GRANULOCYTE # (test 0.42 x10 3/uL 0.00-0.03 H code = IG#) LYMPHOCYTE # (test code = LY#) 0.82 x10 3/uL 1.0-3.8 L MONOCYTE # (test code = MO#) 1.74 x10 3/uL 0.1-0.8 H EOSINOPHIL # (test code = EO#) 0.09 x10 3/uL 0.0-0.2 N BASOPHIL # (test code = BA#) 0.05 x10 3/uL 0.0-0.2 N NUCLEATED RBC # (test code = 0.00 x10 3/uL 0.0-0.1 N NRBC#) POC ARTERIAL BLOOD [id number] 03:51:00 Test Item Value Reference Range Interpretation Comments POC ARTERIAL BLOOD GAS PH (test 7.517 7.35-7.45 HH code = POCPHA) POC ARTERIAL BLOOD GAS PCO2 (test 31.9 mmHg 35.0-45 L code = DMAWEW7B) POC TCO2 ARTERIAL (test code = 26.8 POCTCO2) POC ARTERIAL BLOOD GAS PO2 (test 94.7 mmHg 80-100.0 N code = QAPNQ6N) POC HCO3 ARTERIAL (test code = 25.9 MMOL/L 22.0-26.0 N NNOWYF7Y) POC BASE EXCESS (test code = 3.0 MMOL/L -4.0-4.0 N POCBEA) POC O2 SATURATION (test code = 98.2 % 90-100 N POCO2S) ABG DELIVERY (test code = CELIA) Cannula ABG SITE (test code = SITEA) L Radial SHWETA'S TEST (test code = ALLENS) Positive [id number] 23:17:00 Test Item Value Reference Range Interpretation Comments SODIUM (test code = NA) 125 mEq/L 134-147 L COMMENTS: Draw serum sodium levels q6hrs for the first 24 hours & q12hrs for theComment: next 24hrs with initiation of Tolvaptan or for any dose change. [id number] 18:50:00 Test Item Value Reference Range Interpretation Comments SODIUM (test code = 124 mEq/L 134-147 LL Critical result called NA) to RN REFUGIO Manzo [id number] at 18 41 07/23/23Nurse maryan gonzalez back resut and tech confirmed it's correct? YES COMMENTS: Draw serum sodium levels q6hrs for the first 24 hours & q12hrs for theComment: next 24hrs with initiation of Tolvaptan or for any dose change.- CT CHEST W/O [id number] 16:17:00 [facility] : 1955 Sex: M Name:CARLOS MANUEL DOUGLASS [facility] : 1955 Age/S: 68 / M [address] [place] [address] Unit #: [id number] Loc: [place] [address] Phys: Luz Avelar Acct: [id number] Dis Date: Status: ADM IN PHONE #: [phone] Exam Date: 07/23/2023 1614 FAX #: [phone] Reason: Sternal drainage. EXAMS: CPT CODE: [id number] CT CHEST W/O CONTRAST 77324 EXAM: - CT CHEST W/O CONTRAST INDICATION: Sternal drainage. TECHNIQUE: Volumetric CT acquisition of the chest with no intravenous contrast. Location:T18 One or more of the following dose-optimizing techniques was utilized for this exam: automated exposurecontrol, adjustment of the mA and/or kV according to patient size, and/or use of iterative reconstruc tion technique. Unless otherwise specified, incidental findings do not require dedicated imaging follow-up. FINDINGS: Lung and Pleura: Small bilateral pleural effusions with small amount of bibasilar atelectasis. No pneumothorax seen. Mediastinum: Mild cardiomegaly. Trace pericardial effusion. Small amount of pneumomediastinum. Patient is poststernotomy. Within the anterior mediastinum deep to the sternotomy, there is an area of fluid noted measuring 4.6 x 2.7 x 4.1 cm in size seen best on series 4, image 46 and series 10, image 63. Lower Neck: Visualized thyroid appears unremarkable. Lymph Nodes:No enlarged lymph nodes seen. Upper abdomen: No significant abnormality seen. Soft Tissues: No significant abnormality seen Bones:Please see above IMPRESSION: Poststernotomy. Deep to the sternotomy, area of fluid identified measuring 4.6 x 2.7 x 4.1 cm in size. Differential considerations include seroma, hematoma or abscess. Please refer to the findings section for additional details. at 1617 Reported and signed by: Sivakumar Arambula M.D. PAGE 1Signed Report (CONTINUED) Name: CARLOS MANUEL DOUGLASS [facility] : 1955 Age/S: 68 / M [address] [place] [address] Unit #: [id number] Loc: [place] [address] Phys: Luz Avelar Acct: [id number] Dis Date: Status: ADM IN PHONE #: [phone] Exam Date: 07/23/20231613 FAX #: [phone] Reason: Sternal drainage. EXAMS: CPT CODE: [id number] CT CHEST W/O CONTRAST 67316 (Continued) CC: Matty Higginbotham MD; Larry Chatman MD; Tom Richard MD; Luz Avelar Technologist:RT Fritz(R)(CT) CTDI: DLP: Trnscb Date/Time: 07/23/2023 (1616) [email or web address] Orig Print D/T: S: 07/23/2023 (8106)PAGE 2 Signed Report- KESHA POOLE [id number] 13:30:[address] [facility] [place] MARTIN BUNOLAName: CARLOS MANUEL DOUGLASS : 1955 Sex: M Name:CARLOS MANUEL DOUGLASS [facility] [place] : 1955 Age/S: 68 / M [address] [place] [address] Blvd Unit #: [id number] Loc: [place] [address] Phys: Luz Avelar Acct: [id number] Dis Date: Status: ADM IN PHONE #: [phone] Exam Date: 07/23/2023 1308 FAX #: [phone] Reason: R/O DVT EXAMS: CPT CODE:[id number] DUP VEIN FLORINDA [address] EXAM: - DUP VEIN FLORINDA LOCATION: U19 HISTORY: R/O DVT TECHNIQUE: Grayscale real-time B-mode imaging with color doppler and spectral duplex images was performed of the bilateral lower extremities. COMPARISON: None available. FINDINGS: There is normal flow, compressibility, and augmentation demonstrated on color and spectral doppler analysis of the visualized venous structures of the bilateral lower extremities. IMPRESSION: No DVT in the visualized venous structures of thebilateral lower extremities. at 1330 Reported and signed by: Aubrey Hughes D.O. CC: Karen Higginbotham MD; Larry Chatman MD; Tom Richard MD;Luz Avelar Technologist: Florence Ashley RDMS(AB) Trnscb Date/Time: 07/23/2023 (1329) [email or web address] Orig Print D/T: S: 07/23/2023 (1332) Probe: PAGE 1 Signed Report- XR CHEST 1 [id number] 12:34:[address] [facility] [place] [place] MARTIN BUNOLAName: CARLOS MANUEL DOUGLASS : 1955 Sex: M FAX: Karen Corley MD [phone] [place]: St: ADM FAX: Larry Mock MD [phone] FAX: Pippa Waldron MD [phone] FAX: Tom Toribio MD [phone] Name: CARLOS MANUEL DOUGLASS [facility] Martin Rodriguez : 1955 Age/S: 68/M [address] [place] [address] Unit #: [id number] Loc: G.[address] [place] [address] Phys: Pippa Ferro MD Acct: [id number] Dis Date: Status: ADM IN PHONE #: [phone] Exam Date: 07/23/2023 1228 FAX #: [phone] Reason: leucocytosis EXAMS: CPT CODE: [id number] XR CHEST 1 V 60318 EXAM: CHEST ONE VIEW INDICATION: LEUCOCYTOSIS LOCATION: B2 COMPARISON: July 21, 2023 TECHNIQUE: AP view of the chest FINDINGS: The heart size is enlarged. There is evidence of prior thoracic surgery. There is increased density in the left lung base which may represent a small left pleural effusion versus atelectasis.. No pneumothorax is identified. The right lung is clear. The osseous structures are normal. IMPRESSION: Possible small left pleural effusion. No pneumothorax. Cardiomegaly. at 1234 Reported and signed by: Marina Iyv M.D. CC: Karen Higginbotham MD; Larry Chatman MD; Pippa Ferro MD; Tom Richard MD Technologist: Ravi Scruggs, RT(R); Chelo GutierrezRT(R) Trnscrd Date/Time/By: 07/23/2023 (6384) : By: 16 Orig Print D/T: S: 07/23/2023 (9946)PAGE 1 Signed ReportBASIC METABOLIC [id number] 07:49:00 Test Item Value Reference Range Interpretation Comments SODIUM (test code = 126 mEq/L 134-147 L NA) POTASSIUM (test code 3.3 mEq/L 3.4-5.0 L = K) CHLORIDE (test code 89 mEq/L 100-108 L = CL) CARBON DIOXIDE (test 27 mEq/l 21-33 N code = CO2) ANION GAP (test code 13 0-20 N = GAP) GLUCOSE (test code = 102 mg/dL 77-141 N NOTE: N EW NORMAL RANGE GLU) BLOOD UREA NITROGEN 19 mg/dL 7-25 N NOTE: NE W NORMAL RANGE (test code = BUN) GLOMERULAR 81.5 80-90 N The Glomerular FILTRATION RATE Filtration R ate is a (test code = GFR) calculated parameterbased on serum Creatinine, pat ient age and sex. GFR va luesless than 60 mL/min/ 1.73 square meters a re indicative ofCh ronic Kidney Disease. Values less than 15 mL/min/1.73squa re meters indicate Kidney failure. The calculation forGFR is based on the CKD-EPI (2020) calculat ion. This formulais race indifferent and is the recommended for anabell for GFRby the Nat nal Kidney Foundati on for Adults.The GFR will not calculate if th e sex is unknown or if thepatient's ag e is <18 years. CREATININE (test 1.0 mg/dL 0.6-1.3 N code = CREAT) CALCIUM (test code = 8.4 mg/dL 8.0-10.5 N CA) [id number] 07:49:00 Test Item Value Reference Range Interpretation Comments PHOSPHOROUS (test code = PHOS) 3.4 MG/DL 2.5-4.9 N [id number] 07:49:00 Test Item Value Reference Range Interpretation Comments MAGNESIUM (test code = 2.15 mg/dL 1.6-2.6 N NOTE: NEW NORMAL MAG) RANGE CBC W/AUTO [id number] 07:38:00 Test Item Value Reference Range Interpretation Comments WHITE BLOOD CELL 18.6 x10 3/uL 4.5-11.0 H (test code = WBC) RED BLOOD CELL (test 3.58 x10 6/uL 4.00-5.60 L code = RBC) HEMOGLOBIN (test code 10.5 g/dL 12.5-16.9 L = HGB) HEMATOCRIT (test code 31.6 % 37.5-50.7 L = HCT) MEAN CELL VOLUME 88.3 fL 81.0-99.0 N (test code = MCV) MEAN CELL HGB (test 29.3 pg 27.0-33.0 N code = MCH) MEAN CELL HGB 33.2 g/dL 33.0-37.0 N CONCETRATION (test code = MCHC) RED CELL DISTRIBUTION 14.6 % 11.5-14.5 H WIDTH CV (test code = RDW) RED CELL DISTRIBUTION 42.6 fL 37.0-54.0 N WIDTH SD (test code = RDW-SD) PLATELET COUNT (test 267 x10 3/uL 150-400 N code = PLT) MEAN PLATELET VOLUME 10.9 fL 7.0-9.0 H (test code = MPV) NEUTROPHIL % (test 79.7 % 56.0-77.0 H code = NT%) IMMATURE GRANULOCYTE 3.8 % 0.0-2.0 H % (test code = IG%) LYMPHOCYTE % (test 4.9 % 14.0-32.0 L code = LY%) MONOCYTE % (test code 10.2 % 4.8-9.0 H = MO%) EOSINOPHIL % (test 1.1 % 0.3-3.7 N code = EO%) BASOPHIL % (test code 0.3 % 0.0-2.0 N = BA%) NUCLEATED RBC % (test 0.0 % 0-0 N code = NRBC%) NEUTROPHIL # (test 14.80 x10 3/uL 2.0-7.6 H code = NT#) IMMATURE GRANULOCYTE 0.70 x10 3/uL 0.00-0.03 H # (test code = IG#) LYMPHOCYTE # (test 0.91 x10 3/uL 1.0-3.8 L code = LY#) MONOCYTE # (test code 1.89 x10 3/uL 0.1-0.8 H = MO#) EOSINOPHIL # (test 0.21 x10 3/uL 0.0-0.2 H code = EO#) BASOPHIL # (test code 0.06 x10 3/uL 0.0-0.2 N = BA#) NUCLEATED RBC # (test 0.00 x10 3/uL 0.0-0.1 N code = NRBC#) MANUAL DIFF REQUIRED NO SLIDE R EVIEWED, (test code = MDIFF) CONSISTE NT WITH AUTO DIFF. CBC W/AUTO [id number] 11:35:00 Test Item Value Reference Range Interpretation Comments WHITE BLOOD CELL (test code = 17.9 x10 3/uL 4.5-11.0 H WBC) RED BLOOD CELL (test code = 3.58 x10 6/uL 4.00-5.60 L RBC) HEMOGLOBIN (test code = HGB) 10.5 g/dL 12.5-16.9 L HEMATOCRIT (test code = HCT) 31.4 % 37.5-50.7 L MEAN CELL VOLUME (test code = 87.7 fL 81.0-99.0 N MCV) MEAN CELL HGB (test code = 29.3 pg 27.0-33.0 N MCH) MEAN CELL HGB CONCETRATION 33.4 g/dL 33.0-37.0 N (test code = MCHC) RED CELL DISTRIBUTION WIDTH CV 14.6 % 11.5-14.5 H (test code = RDW) RED CELL DISTRIBUTION WIDTH SD 42.5 fL 37.0-54.0 N (test code = RDW-SD) PLATELET COUNT (test code = 226 x10 3/uL 150-400 N PLT) MEAN PLATELET VOLUME (test 10.4 fL 7.0-9.0 H code = MPV) NEUTROPHIL % (test code = NT%) 81.3 % 56.0-77.0 H IMMATURE GRANULOCYTE % (test 3.3 % 0.0-2.0 H code = IG%) LYMPHOCYTE % (test code = LY%) 3.9 % 14.0-32.0 L MONOCYTE % (test code = MO%) 9.5 % 4.8-9.0 H EOSINOPHIL % (test code = EO%) 1.6 % 0.3-3.7 N BASOPHIL % (test code = BA%) 0.4 % 0.0-2.0 N NUCLEATED RBC % (test code = 0.0 % 0-0 N NRBC%) NEUTROPHIL # (test code = NT#) 14.53 x10 3/uL 2.0-7.6 H IMMATURE GRANULOCYTE # (test 0.59 x10 3/uL 0.00-0.03 H code = IG#) LYMPHOCYTE # (test code = LY#) 0.70 x10 3/uL 1.0-3.8 L MONOCYTE # (test code = MO#) 1.70 x10 3/uL 0.1-0.8 H EOSINOPHIL # (test code = EO#) 0.28 x10 3/uL 0.0-0.2 H BASOPHIL # (test code = BA#) 0.07 x10 3/uL 0.0-0.2 N NUCLEATED RBC # (test code = 0.00 x10 3/uL 0.0-0.1 N NRBC#) MANUAL DIFF REQUIRED (test YES code = MDIFF) WBC [id number] 11:35:00 Test Item Value Reference Range Interpretation Comments BAND NEUTROPHIL (test code % 0.0-10.0 = BAND) ANISOCYTOSIS (test code = 1+ ANISO) PLATELET ESTIMATE (test Adequate THOUSAND ADEQUATE code = PLTEST) SEGMENTED NEUTROPHILS (test 86.4 % 37-69 H code = SEG) LYMPHOCYTE (test code = 2.7 % 23-55 L LYMPH) MONOCYTE (test code = MON) 6.4 % 0-10 N EOSINOPHIL (test code = 1.8 % 0.0-4.0 N EOS) METAMYELOCYTE (test code = 0.9 % 0.0-0.0 H META) MYELOCYTE (test code = 1.8 % 0.0-0.0 H MYELO) POLYCHROMASIA (test code = 2+ POLC) POIKILOCYTOSIS (test code = 1+ POIK) MICROCYTOSIS (test code = 1+ MICR) ECHINOCYTES (test code = 1+ ECH) ACANTHOCYTES (test code = FEW NONE ACAN) BASIC METABOLIC [id number] 11:23:00 Test Item Value Reference Range Interpretation Comments SODIUM (test code = 128 mEq/L 134-147 L NA) POTASSIUM (test code 3.4 mEq/L 3.4-5.0 N = K) CHLORIDE (test code 93 mEq/L 100-108 L = CL) CARBON DIOXIDE (test 28 mEq/l 21-33 N code = CO2) ANION GAP (test code 10 0-20 N = GAP) GLUCOSE (test code = 126 mg/dL 77-141 N NOTE: N EW NORMAL RANGE GLU) BLOOD UREA NITROGEN 23 mg/dL 7-25 N NOTE: NE W NORMAL RANGE (test code = BUN) GLOMERULAR 72.7 80-90 L The Glomerular FILTRATION RATE Filtration R ate is a (test code = GFR) calculated parameterbased on serum Creatinine, pat ient age and sex. GFR va luesless than 60 mL/min/ 1.73 square meters a re indicative ofCh ronic Kidney Disease. Values less than 15 mL/min/1.73squa re meters indicate Kidney failure. The calculation forGFR is based on the CKD-EPI (2020) calculat ion. This formulais race indifferent and is the recommended for anabell for GFRby the [facility] on for Adults.The GFR will not calculate if th e sex is unknown or if thepatient's ag e is <18 years. CREATININE (test 1.1 mg/dL 0.6-1.3 N code = CREAT) CALCIUM (test code = 8.5 mg/dL 8.0-10.5 N CA) [id number] 11:23:00 Test Item Value Reference Range Interpretation Comments MAGNESIUM (test code = 1.90 mg/dL 1.6-2.6 N NOTE: NEW NORMAL MAG) RANGE - XR CHEST 1 [id number] 08:13:00 [facility] : 1955 Sex: M FAX: Karen Corley MD [phone] [place]: St: ADM FAX: Larry Mock MD [phone] FAX: Dorothy Ventura NP [phone] FAX: Tom Toribio MD [phone] Name: CARLOS MANUEL DOUGLASS [facility] [place] : 1955 Age/S: 68/M [address] [place] [address] Unit #: [id number] Loc: G.[address] [place] [address] Phys: Dorothy Ventura NPAcct: [id number] Dis Date: Status: ADM IN PHONE #: [phone] Exam Date: 07/21/2023 0708 FAX #:[phone] Reason: Cardiac Surgery Post Op EXAMS: CPT CODE: [id number] XR CHEST 1 V 27620 EXAM: - XR CHEST 1 V Location code:C3 HISTORY: Cardiac Surgery Post Op COMPARISON: 07/20/2023 IMPRESSION: Single AP view of the chest is provided. Cardiomegaly is again seen. Likely mild left pleural effusion with left base atelectasis is unchanged. There is no pneumothorax. No additional interval change. at 0813 Reported and signed by: Aj Brown M.D. CC: Karen Higginbotham MD; Larry Chatman MD; Dorothy Ventura ALUMINUM FABRICATION SUPERVISOR; Tom Richard MD Technologist: Afshin López RT(R) Trnscrd Date/Time/By: 07/21/2023 (812) : By: [email or web address] Orig Print D/T: S: 07/21/2023 (815) PAGE 1 Signed ReportBASIC METABOLIC [id number] 03:02:00 Test Item Value Reference Range Interpretation Comments SODIUM (test code = 130 mEq/L 134-147 L NA) POTASSIUM (test code 3.4 mEq/L 3.4-5.0 N = K) CHLORIDE (test code 93 mEq/L 100-108 L = CL) CARBON DIOXIDE (test 28 mEq/l 21-33 N code = CO2) ANION GAP (test code 12 0-20 N = GAP) GLUCOSE (test code = 111 mg/dL 77-141 N NOTE: N EW NORMAL RANGE GLU) BLOOD UREA NITROGEN 31 mg/dL 7-25 H NOTE: NE W NORMAL RANGE (test code = BUN) GLOMERULAR 72.7 80-90 L The Glomerular FILTRATION RATE Filtration R ate is a (test code = GFR) calculated parameterbased on serum Creatinine, pat ient age and sex. GFR va luesless than 60 mL/min/ 1.73 square meters a re indicative ofCh ronic Kidney Disease. Values less than 15 mL/min/1.73squa re meters indicate Kidney failure. The calculation forGFR is based on the CKD-EPI (2020) calculat ion. This formulais race indifferent and is the recommended for anabell for GFRby the [facility] on for Adults.The GFR will not calculate if th e sex is unknown or if thepatient's ag e is <18 years. CREATININE (test 1.1 mg/dL 0.6-1.3 N code = CREAT) CALCIUM (test code = 8.8 mg/dL 8.0-10.5 N CA) [id number] 03:02:00 Test Item Value Reference Range Interpretation Comments PHOSPHOROUS (test code = PHOS) 3.8 MG/DL 2.5-4.9 [id number] 03:02:00 Test Item Value Reference Range Interpretation Comments MAGNESIUM (test code = 2.12 mg/dL 1.6-2.6 N NOTE: NEW NORMAL MAG) RANGE CALCIUM [id number] 03:02:00 Test Item Value Reference Range Interpretation Comments CALCIUM IONIZED (test code = BOLIVAR) 1.12 MMOL/L 1.09-1.30 N CBC W/AUTO [id number] 02:54:00 Test Item Value Reference Range Interpretation Comments WHITE BLOOD CELL (test code = 15.2 x10 3/uL 4.5-11.0 H WBC) RED BLOOD CELL (test code = 3.51 x10 6/uL 4.00-5.60 L RBC) HEMOGLOBIN (test code = HGB) 10.3 g/dL 12.5-16.9 L HEMATOCRIT (test code = HCT) 30.8 % 37.5-50.7 L MEAN CELL VOLUME (test code = 87.7 fL 81.0-99.0 N MCV) MEAN CELL HGB (test code = MCH) 29.3 pg 27.0-33.0 N MEAN CELL HGB CONCETRATION 33.4 g/dL 33.0-37.0 N (test code = MCHC) RED CELL DISTRIBUTION WIDTH CV 13.2 % 11.5-14.5 N (test code = RDW) RED CELL DISTRIBUTION WIDTH SD 40.8 fL 37.0-54.0 N (test code = RDW-SD) PLATELET COUNT (test code = 184 x10 3/uL 150-400 N PLT) MEAN PLATELET VOLUME (test code 10.9 fL 7.0-9.0 H = MPV) NEUTROPHIL % (test code = NT%) % 56.0-77.0 LYMPHOCYTE % (test code = LY%) % 14.0-32.0 NEUTROPHIL # (test code = NT#) x10 3/uL 2.0-7.6 LYMPHOCYTE # (test code = LY#) x10 3/uL 1.0-3.8 MANUAL DIFF REQUIRED (test code YES = MDIFF) WBC [id number] 02:54:00 Test Item Value Reference Range Interpretation Comments BAND NEUTROPHIL (test code 0.0 % 0.0-10.0 N = BAND) ANISOCYTOSIS (test code = ANISO) PLATELET ESTIMATE (test Adequate THOUSAND ADEQUATE code = PLTEST) SEGMENTED NEUTROPHILS (test 82.6 % 37-69 H code = SEG) LYMPHOCYTE (test code = 5.5 % 23-55 L LYMPH) MONOCYTE (test code = MON) 4.6 % 0-10 N EOSINOPHIL (test code = 7.3 % 0.0-4.0 H EOS) NUCLEATED RED BLOOD CELL 2.8 % (test code = NRBC) POLYCHROMASIA (test code = 2+ POLC) POIKILOCYTOSIS (test code = 2+ POIK) BASIC METABOLIC [id number] 16:30:00 Test Item Value Reference Range Interpretation Comments SODIUM (test code = 126 mEq/L 134-147 L NA) POTASSIUM (test code 3.5 mEq/L 3.4-5.0 N = K) CHLORIDE (test code 93 mEq/L 100-108 L = CL) CARBON DIOXIDE (test 27 mEq/l 21-33 N code = CO2) ANION GAP (test code 9 0-20 N = GAP) GLUCOSE (test code = 122 mg/dL 77-141 N NOTE: N EW NORMAL RANGE GLU) BLOOD UREA NITROGEN 33 mg/dL 7-25 H NOTE: NE W NORMAL RANGE (test code = BUN) GLOMERULAR 72.7 80-90 L The Glomerular FILTRATION RATE Filtration R ate is a (test code = GFR) calculated parameterbased on serum Creatinine, pat ient age and sex. GFR va luesless than 60 mL/min/ 1.73 square meters a re indicative ofCh ronic Kidney Disease. Values less than 15 mL/min/1.73squa re meters indicate Kidney failure. The calculation forGFR is based on the CKD-EPI (2020) calculat ion. This formulais race indifferent and is the recommended for anabell for GFRby the [facility] on for Adults.The GFR will not calculate if th e sex is unknown or if thepatient's ag e is <18 years. CREATININE (test 1.1 mg/dL 0.6-1.3 N code = CREAT) CALCIUM (test code = 8.7 mg/dL 8.0-10.5 N CA) [id number] 16:30:00 Test Item Value Reference Range Interpretation Comments MAGNESIUM (test code = 1.98 mg/dL 1.6-2.6 N NOTE: NEW NORMAL MAG) RANGE CALCIUM [id number] 16:30:00 Test Item Value Reference Range Interpretation Comments CALCIUM IONIZED (test code = BOLIVAR) 1.15 MMOL/L 1.09-1.30 N CBC W/AUTO [id number] 15:25:00 Test Item Value Reference Range Interpretation Comments WHITE BLOOD CELL (test code = 15.2 x10 3/uL 4.5-11.0 H WBC) RED BLOOD CELL (test code = 3.07 x10 6/uL 4.00-5.60 L RBC) HEMOGLOBIN (test code = HGB) 9.1 g/dL 12.5-16.9 L HEMATOCRIT (test code = HCT) 26.7 % 37.5-50.7 L MEAN CELL VOLUME (test code = 87.0 fL 81.0-99.0 N MCV) MEAN CELL HGB (test code = 29.6 pg 27.0-33.0 N MCH) MEAN CELL HGB CONCETRATION 34.1 g/dL 33.0-37.0 N (test code = MCHC) RED CELL DISTRIBUTION WIDTH CV 13.1 % 11.5-14.5 N (test code = RDW) RED CELL DISTRIBUTION WIDTH SD 40.4 fL 37.0-54.0 N (test code = RDW-SD) PLATELET COUNT (test code = 157 x10 3/uL 150-400 N PLT) MEAN PLATELET VOLUME (test 11.0 fL 7.0-9.0 H code = MPV) NEUTROPHIL % (test code = NT%) 71.9 % 56.0-77.0 N IMMATURE GRANULOCYTE % (test 4.1 % 0.0-2.0 H code = IG%) LYMPHOCYTE % (test code = LY%) 7.0 % 14.0-32.0 L MONOCYTE % (test code = MO%) 12.9 % 4.8-9.0 H EOSINOPHIL % (test code = EO%) 3.6 % 0.3-3.7 N BASOPHIL % (test code = BA%) 0.5 % 0.0-2.0 N NUCLEATED RBC % (test code = 0.8 % 0-0 H NRBC%) NEUTROPHIL # (test code = NT#) 10.91 x10 3/uL 2.0-7.6 H IMMATURE GRANULOCYTE # (test 0.62 x10 3/uL 0.00-0.03 H code = IG#) LYMPHOCYTE # (test code = LY#) 1.07 x10 3/uL 1.0-3.8 N MONOCYTE # (test code = MO#) 1.96 x10 3/uL 0.1-0.8 H EOSINOPHIL # (test code = EO#) 0.55 x10 3/uL 0.0-0.2 H BASOPHIL # (test code = BA#) 0.07 x10 3/uL 0.0-0.2 N NUCLEATED RBC # (test code = 0.12 x10 3/uL 0.0-0.1 H NRBC#) - XR CHEST 1 [id number] 07:38:00 [facility] : 1955 Sex: M FAX: Karen Corley MD [phone] [place]: St: ADM FAX: Larry Mock MD [phone] FAX: Dorothy Ventura NP [phone] FAX: Tom Toribio MD [phone] Name: CARLOS MANUEL DOUGLASS [facility] : 1955 Age/S: 68/M [address] [place] [address] Blvd Unit #: [id number] Loc: G[address] [place] [address] Phys: Dorothy Ventura NP Acct: [id number] Dis Date: Status: ADM IN PHONE #: [phone] Exam Date: 07/20/2023 0501 FAX #: [phone] Reason: Cardiac Surgery Post Op EXAMS: CPT CODE: [id number] XR CHEST 1 V [id number] EXAM: - XRCHEST 1 V Location code:C3 HISTORY: Cardiac Surgery Post Op COMPARISON: 07/18/2023 IMPRESSION: SingleAP view of the chest is provided. Cardiomegaly is again seen. Basilar opacities favoring layering small effusions with edema are unchanged. There is no pneumothorax. No additional interval change. at 0738 Reported and signed by: Germain Godfrey M.D. CC: Karen Higginbotham MD; Larry Chatman MD; Dorothy Ventura NP; Tom Richard MD Technologist: Adrianna Luis RT(R) Trnscrd Date/Time/By: 07/20/2023 (0738) : By: [email or web address] Orig Print D/T: S: 07/20/2023 (0741) PAGE 1 Signed ReportBASIC METABOLIC [id number] 04:56:00 Test Item Value Reference Range Interpretation Comments SODIUM (test code = 128 mEq/L 134-147 L NA) POTASSIUM (test code 3.3 mEq/L 3.4-5.0 L = K) CHLORIDE (test code 95 mEq/L 100-108 L = CL) CARBON DIOXIDE (test 28 mEq/l 21-33 N code = CO2) ANION GAP (test code 9 0-20 N = GAP) GLUCOSE (test code = 123 mg/dL 77-141 N NOTE: N EW NORMAL RANGE GLU) BLOOD UREA NITROGEN 26 mg/dL 7-25 H NOTE: NE W NORMAL RANGE (test code = BUN) GLOMERULAR 72.7 80-90 L The Glomerular FILTRATION RATE Filtration R ate is a (test code = GFR) calculated parameterbased on serum Creatinine, pat ient age and sex. GFR va luesless than 60 mL/min/ 1.73 square meters a re indicative ofCh ronic Kidney Disease. Values less than 15 mL/min/1.73squa re meters indicate Kidney failure. The calculation forGFR is based on the CKD-EPI (2020) calculat ion. This formulais race indifferent and is the recommended for anabell for GFRby the [facility] on for Adults.The GFR will not calculate if th e sex is unknown or if thepatient's ag e is <18 years. CREATININE (test 1.1 mg/dL 0.6-1.3 N code = CREAT) CALCIUM (test code = 8.5 mg/dL 8.0-10.5 N CA) [id number] 04:56:00 Test Item Value Reference Range Interpretation Comments PHOSPHOROUS (test code = PHOS) 3.0 MG/DL 2.5-4.9 [id number] 04:56:00 Test Item Value Reference Range Interpretation Comments MAGNESIUM (test code = 2.03 mg/dL 1.6-2.6 N NOTE: NEW NORMAL MAG) RANGE CALCIUM [id number] 04:56:00 Test Item Value Reference Range Interpretation Comments CALCIUM IONIZED (test code = BOLIVAR) 1.12 MMOL/L 1.09-1.30 N CBC W/AUTO [id number] 04:41:00 Test Item Value Reference Range Interpretation Comments WHITE BLOOD CELL 17.2 x10 3/uL 4.5-11.0 H (test code = WBC) RED BLOOD CELL (test 3.38 x10 6/uL 4.00-5.60 L code = RBC) HEMOGLOBIN (test code 9.8 g/dL 12.5-16.9 L = HGB) HEMATOCRIT (test code 29.4 % 37.5-50.7 L = HCT) MEAN CELL VOLUME 87.0 fL 81.0-99.0 N (test code = MCV) MEAN CELL HGB (test 29.0 pg 27.0-33.0 N code = MCH) MEAN CELL HGB 33.3 g/dL 33.0-37.0 N CONCETRATION (test code = MCHC) RED CELL DISTRIBUTION 13.2 % 11.5-14.5 N WIDTH CV (test code = RDW) RED CELL DISTRIBUTION 41.0 fL 37.0-54.0 N WIDTH SD (test code = RDW-SD) PLATELET COUNT (test 167 x10 3/uL 150-400 code = PLT) MEAN PLATELET VOLUME 11.5 fL 7.0-9.0 H (test code = MPV) NEUTROPHIL % (test 74.2 % 56.0-77.0 N code = NT%) IMMATURE GRANULOCYTE 4.3 % 0.0-2.0 H % (test code = IG%) LYMPHOCYTE % (test 6.3 % 14.0-32.0 L code = LY%) MONOCYTE % (test code 11.7 % 4.8-9.0 H = MO%) EOSINOPHIL % (test 3.0 % 0.3-3.7 N code = EO%) BASOPHIL % (test code 0.5 % 0.0-2.0 N = BA%) NUCLEATED RBC % (test 1.0 % 0-0 H code = NRBC%) NEUTROPHIL # (test 12.77 x10 3/uL 2.0-7.6 H code = NT#) IMMATURE GRANULOCYTE 0.74 x10 3/uL 0.00-0.03 H # (test code = IG#) LYMPHOCYTE # (test 1.08 x10 3/uL 1.0-3.8 N code = LY#) MONOCYTE # (test code 2.02 x10 3/uL 0.1-0.8 H = MO#) EOSINOPHIL # (test 0.51 x10 3/uL 0.0-0.2 H code = EO#) BASOPHIL # (test code 0.09 x10 3/uL 0.0-0.2 N = BA#) NUCLEATED RBC # (test 0.18 x10 3/uL 0.0-0.1 H code = NRBC#) MANUAL DIFF REQUIRED NO SLIDE R EVIEWED, (test code = MDIFF) CONSISTE NT WITH AUTO DIFF. POC ARTERIAL BLOOD [id number] 13:59:00 Test Item Value Reference Range Interpretation Comments POC ARTERIAL BLOOD GAS PH (test 7.531 7.35-7.45 HH code = POCPHA) POC ARTERIAL BLOOD GAS PCO2 (test 31.9 mmHg 35.0-45 L code = PAXEHJ4D) POC TCO2 ARTERIAL (test code = 27.7 POCTCO2) POC ARTERIAL BLOOD GAS PO2 (test 59.7 mmHg 80-100.0 L code = EDEPD0K) POC HCO3 ARTERIAL (test code = 26.7 MMOL/L 22.0-26.0 H [id number]) POC BASE EXCESS (test code = 4.0 MMOL/L -4.0-4.0 N POCBEA) POC O2 SATURATION (test code = 93.5 % 90-100 N POCO2S) ABG SITE (test code = SITEA) Art Line SHWETA'S TEST (test code = ALLENS) N/A BASIC METABOLIC [id number] 13:59:00 Test Item Value Reference Range Interpretation Comments SODIUM (test code = NA/ABG) 130 mmol/L 134-147 L POTASSIUM (test code = K/ABG) 3.5 mmol/L 3.4-5.0 N CHLORIDE (test code = CL/ABG) 95 mmol/L 100-108 L CREATININE ABG (test code = 0.8 mg/dL 0.8-1.3 N CREAABG) POC IONIZED CALCIUM (test code = 1.11 MMOL/L 1.12-1.32 L POCCA) POC GLUCOSE (test code = POCGLU) 242 MG/DL 70-110 H HEMOGLOBIN [id number] 13:59:00 Test Item Value Reference Range Interpretation Comments HEMOGLOBIN ABG (test code = 10.3 G/DL 12.5-16.9 L HGB/ABG) [id number] 13:59:00 Test Item Value Reference Range Interpretation Comments HEMATOCRIT (test code = HCT/ABG) 30 % 37.5-50.7 L [id number] 10:42:00 Test Item Value Reference Range Interpretation Comments SURGICAL (test code = SR) RUN DATE: 07/19/23 [facility] - LAB PAGE 1 RUN TIME: 1042 Specimen Inquiry RUN USER: INTERFACE PATIENT: CARLOS MANUEL DOUGLASS LOC: TASHA Johnson #: [id number] AGE/SX: 68/M ROOM: [facility] RE07/14/23REG DR: Karen Higginbotham MD : 53 BED: 1 DIS: STATUS: ADM IN TLOC: SPEC #: [id number] RECD: 07/16/23 STATUS: SEBAS REMike #: [id number] TAJ: 07/15/[address] [facility] [address]: Juan Pablo Mast MD ENTERED: 07/16/23 SP TYPE: SURGICAL OTHR DR: [place] MD,Rebeka Navarrete MD, MD, David T MD Chaugle, Hannan H MD Hammoudeh, Fadi MD Jackson,Tima Dunn MD [place],Tom Lackey MD, MDORDERED: [id number], ANATOMIC SPEC COPIES TO: [place] MD [address] [facility] [place] [address] [place] [address] Jigar Hodges MD [address] [place] [address] Rebeka Vitale MD [address] [place] [address] Larry Chatman MD [address] [place] [address] Juan Pablo Mast MD [address] [facility] [place] [address] John Wong MD [address] [place] [address] CONTINUED ON NEXT PAGE RUN DATE: 07/19/23 [place] [facility] PAGE 2 RUN TIME: 1042 Specimen Inquiry RUN USER: INTERFACE SPEC #: [id number] PATIENT: CARLOS MANUEL DOUGLASS #[id number] (Continued) COPIES TO: (Continued) [place] [address] [facility] [address] [place] [address] Sawyer Rooney MD [address] [place], [place] [id number] Tom Richard MD [address] [facility] [address] [place] [address] PROCEDURES: [id number] (07/16/23) TISSUES: A. ATRIUM - LEFT ATRIAL APPENDAGE CLINICAL HISTORY SAME FINAL DIAGNOSIS Heart, left atrial appendage, excision: -Cardiac tissue with ischemic type changes. GROSS DESCRIPTION The specimen received in formalin in a container labeled with the patient's name anddesignated left atrial appendage and consists of a segment of cardiac tissue that measures7 cm in length. Power Washer sections are submitted in cassette A. Technical component performed at [facility],[address] [place] [address], [place] [address] Unless gross only, the diagnosis is based upon microscopic examination.Immunohistoche michelle: This test was developed and its performance characteristicsdetermined by this laboratory. It has not been approved nor does it need approvalby the [place] FDA. Appropriate positive and negative controls are reviewed and judgedto be acceptable for performedimmunohistochemis try and/or special stains. This laboratoryis certified under the Clinical Laboratory Improvement Amendments (CLIA-88) as qualified toperform high complexity clinical laboratory testing. CONTINUED ON NEXT PAGE RUN DATE: 07/19/23 [place] - LAB PAGE 3 RUN TIME: 1042 Specimen Inquiry RUN USER: INTERFACE SPEC #: [id number] PATIENT: CARLOS MANUEL DOUGLASS #[id number] (Continued) MICROSCOPIC DESCRIPTION A microscopic examination was performed. CLINICAL INFORMATION CAD Signed SIGNATURE ON FILE Alfonzo Hollis Rebecca 07/19/23 1042 END OF REPORT - XR CHEST 1 [id number] 07:21:00 [facility] : 1955 Sex: M FAX:Karen Corley MD [phone] [place]: St: ADM FAX: Larry Mock MD [phone] FAX: Dorothy Ventura NP [phone] FAX: Tom Toribio MD [phone] Name: CARLOS MANUEL DOUGLASS [facility] [place] : 1955 Age/S:68/M [address] [place] [address] Unit #: [id number] Loc: KEELY Briggs [address] Phys: LorenzoDorothy ESTEBAN Acct: [id number] Dis Date: Status: ADM IN PHONE #: [phone] Exam Date: 07/19/2023 0651 FAX #: [phone] Reason: Cardiac Surgery Post Op EXAMS: CPT CODE: [id number] XR CHEST 1 V 13624 EXAM: - XR CHEST 1 V Location code:C3 HISTORY: Cardiac Surgery Post Op COMPARISON: 07/18/2023 IMPRESSION: Single AP view of the chest is provided. Enteric tube and right IJ vascular sheath have been removed.Bilateral pulmonary opacities are similar. There is no pneumothorax. No additional interval change. at 0721 Reported and signed by: Germain Godfrey M.D. CC: Karen Higginbotham MD; Larry Chatman MD; Dorothy Ventura ALUMINUM FABRICATION SUPERVISOR; Tom Richard MD Technologist: RT Ronnie(R) Trnscrd Date/Time/By: 07/19/2023 (07) : By: [email or web address] Orig Print D/T: S: 07/19/2023 (0724) PAGE 1 Signed Report- XR ABDOMEN 1V (KUB)2023-07-19 07:16:[address] [facility] [place] [place] MARTIN BUNOLAName: CARLOS MANUEL DOUGLASS : 1955 Sex: M FAX: Jigar Gilmore MD [place]: St: ADM FAX: Karen Corley MD [phone] FAX: Larry Mock MD [phone] FAX: Tom Toribio MD [phone] Name: CARLOS MANUEL DOUGLASS [facility] : 1955 Age/S: 68/M [address] [place] [address] Unit #: [id number] Loc: [address] [address] Phys: Jigar Hodges MD Acct: [id number] Dis Date: Status: ADM IN PHONE #: [phone] Exam Date: 07/19/2023 0651 FAX #: [phone] Reason: EVALUATE TRENDING ILEUS EXAMS: CPT CODE: [id number] XR ABDOMEN 1V (KUB) [id number] EXAM: - XR ABDOMEN 1V (KUB) HISTORY: EVALUATE TRENDING ILEUS Location code:C3 COMPARISON: 07/18/2023 IMPRESSION: One view of the abdomen is provided. Mild gaseous distention of the colon is unchanged. Enteric contrast in the right colon persists. Enteric tube has been removed. No additional interval change. at 0716 Reported and signed by: Claudine Godfrey M.D. 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[facility] BASIC METABOLIC [id number] 02:52:00 Test Item Value Reference Range Interpretation Comments SODIUM (test code = 129 mEq/L 134-147 L NA) POTASSIUM (test code 4.0 mEq/L 3.4-5.0 N = K) CHLORIDE (test code 97 mEq/L 100-108 L = CL) CARBON DIOXIDE (test 29 mEq/l 21-33 N code = CO2) ANION GAP (test code 7 0-20 N = GAP) GLUCOSE (test code = 99 mg/dL 77-141 N NOTE: N EW NORMAL RANGE GLU) BLOOD UREA NITROGEN 21 mg/dL 7-25 N NOTE: NE W NORMAL RANGE (test code = BUN) GLOMERULAR 92.5 80-90 H The Glomerular FILTRATION RATE Filtration R ate is a (test code = GFR) calculated parameterbased on serum Creatinine, pat ient age and sex. GFR va luesless than 60 mL/min/ 1.73 square meters a re indicative ofCh ronic Kidney Disease. Values less than 15 mL/min/1.73squa re meters indicate Kidney failure. The calculation forGFR is based on the CKD-EPI (2020) calculat ion. This formulais race indifferent and is the recommended for anabell for GFRby the [facility] on for Adults.The GFR will not calculate if th e sex is unknown or if thepatient's ag e is <18 years. CREATININE (test 0.9 mg/dL 0.6-1.3 N code = CREAT) CALCIUM (test code = 8.0 mg/dL 8.0-10.5 N CA) [id number] 02:52:00 Test Item Value Reference Range Interpretation Comments MAGNESIUM (test code = 2.15 mg/dL 1.6-2.6 N NOTE: NEW NORMAL MAG) RANGE CBC W/AUTO [id number] 02:40:00 Test Item Value Reference Range Interpretation Comments WHITE BLOOD CELL (test code = 15.6 x10 3/uL 4.5-11.0 H WBC) RED BLOOD CELL (test code = 3.07 x10 6/uL 4.00-5.60 L RBC) HEMOGLOBIN (test code = HGB) 8.9 g/dL 12.5-16.9 L HEMATOCRIT (test code = HCT) 27.2 % 37.5-50.7 L MEAN CELL VOLUME (test code = 88.6 fL 81.0-99.0 N MCV) MEAN CELL HGB (test code = 29.0 pg 27.0-33.0 N MCH) MEAN CELL HGB CONCETRATION 32.7 g/dL 33.0-37.0 L (test code = MCHC) RED CELL DISTRIBUTION WIDTH CV 13.1 % 11.5-14.5 N (test code = RDW) RED CELL DISTRIBUTION WIDTH SD 41.9 fL 37.0-54.0 N (test code = RDW-SD) PLATELET COUNT (test code = 110 x10 3/uL 150-400 L PLT) MEAN PLATELET VOLUME (test 11.3 fL 7.0-9.0 H code = MPV) NEUTROPHIL % (test code = NT%) 79.8 % 56.0-77.0 H IMMATURE GRANULOCYTE % (test 2.0 % 0.0-2.0 N code = IG%) LYMPHOCYTE % (test code = LY%) 5.8 % 14.0-32.0 L MONOCYTE % (test code = MO%) 9.8 % 4.8-9.0 H EOSINOPHIL % (test code = EO%) 2.2 % 0.3-3.7 N BASOPHIL % (test code = BA%) 0.4 % 0.0-2.0 N NUCLEATED RBC % (test code = 1.0 % 0-0 H NRBC%) NEUTROPHIL # (test code = NT#) 12.48 x10 3/uL 2.0-7.6 H IMMATURE GRANULOCYTE # (test 0.31 x10 3/uL 0.00-0.03 H code = IG#) LYMPHOCYTE # (test code = LY#) 0.91 x10 3/uL 1.0-3.8 L MONOCYTE # (test code = MO#) 1.53 x10 3/uL 0.1-0.8 H EOSINOPHIL # (test code = EO#) 0.34 x10 3/uL 0.0-0.2 H BASOPHIL # (test code = BA#) 0.06 x10 3/uL 0.0-0.2 N NUCLEATED RBC # (test code = 0.15 x10 3/uL 0.0-0.1 H NRBC#) MANUAL DIFF REQUIRED (test NO code = MDIFF) GLUCOSE [id number] 23:40:00 Test Item Value Reference Range Interpretation Comments GLUCOSE BEDSIDE (test 112 MG/DL 70-110 H Perfor med by certified code = 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[facility] BASIC METABOLIC [id number] 21:00:00 Test Item Value Reference Range Interpretation Comments SODIUM (test code = 133 mEq/L 134-147 L NA) POTASSIUM (test code 3.8 mEq/L 3.4-5.0 N = K) CHLORIDE (test code 98 mEq/L 100-108 L = CL) CARBON DIOXIDE (test 27 mEq/l 21-33 N code = CO2) ANION GAP (test code 12 0-20 N = GAP) GLUCOSE (test code = 125 mg/dL 77-141 NOTE: N EW NORMAL RANGE GLU) BLOOD UREA NITROGEN 25 mg/dL 7-25 N NOTE: NE W NORMAL RANGE (test code = BUN) GLOMERULAR 81.5 80-90 N The Glomerular FILTRATION RATE Filtration R ate is a (test code = GFR) calculated parameterbased on serum Creatinine, pat ient age and sex. GFR va luesless than 60 mL/min/ 1.73 square meters a re indicative ofCh ronic Kidney Disease. Values less than 15 mL/min/1.73squa re meters indicate Kidney failure. The calculation forGFR is based on the CKD-EPI (2020) calculat ion. This formulais race indifferent and is the recommended for anabell for GFRby the Nat nal Kidney Foundati on for Adults.The GFR will not calculate if th e sex is unknown or if thepatient's ag e is <18 years. 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[facility] GLUCOSE [id number] 18:51:00 Test Item Value Reference Range Interpretation Comments GLUCOSE BEDSIDE (test 150 MG/DL 70-110 H Perfor med by certified code = 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[facility] BASIC METABOLIC [id number] 15:01:00 Test Item Value Reference Range Interpretation Comments SODIUM (test code = 132 mEq/L 134-147 L NA) POTASSIUM (test code 3.7 mEq/L 3.4-5.0 N = K) CHLORIDE (test code 95 mEq/L 100-108 L = CL) CARBON DIOXIDE (test 28 mEq/l 21-33 N code = CO2) ANION GAP (test code 13 0-20 N = GAP) GLUCOSE (test code = 176 mg/dL 77-141 H NOTE: N EW NORMAL RANGE GLU) BLOOD UREA NITROGEN 25 mg/dL 7-25 N NOTE: NE W NORMAL RANGE (test code = BUN) GLOMERULAR 72.7 80-90 L The Glomerular FILTRATION RATE Filtration R ate is a (test code = GFR) calculated parameterbased on serum Creatinine, pat ient age and sex. GFR va luesless than 60 mL/min/ 1.73 square meters a re indicative ofCh ronic Kidney Disease. Values less than 15 mL/min/1.73squa re meters indicate Kidney failure. The calculation forGFR is based on the CKD-EPI (2020) calculat ion. This formulais race indifferent and is the recommended for anabell for GFRby the Natio nal Kidney Foundati on for Adults.The GFR will not calculate if th e sex is unknown or if thepatient's ag e is <18 years. CREATININE (test 1.1 mg/dL 0.6-1.3 N code = CREAT) CALCIUM (test code = 8.3 mg/dL 8.0-10.5 N CA) [id number] 15:01:00 Test Item Value Reference Range Interpretation Comments PHOSPHOROUS (test code = PHOS) 2.2 MG/DL 2.5-4.9 L [id number] 15:01:00 Test Item Value Reference Range Interpretation Comments MAGNESIUM (test code = 1.85 mg/dL 1.6-2.6 NOTE: NEW NORMAL MAG) RANGE CALCIUM [id number] 15:01:00 Test Item Value Reference Range Interpretation Comments CALCIUM IONIZED (test code = BOLIVAR) 1.07 MMOL/L 1.09-1.30 L GLUCOSE [id number] 14:43:00 Test Item Value Reference Range Interpretation Comments GLUCOSE BEDSIDE (test 168 MG/DL 70-110 H Perfor med by certified code = 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[facility] GLUCOSE [id number] 12:08:00 Test Item Value Reference Range Interpretation Comments GLUCOSE BEDSIDE (test 114 MG/DL 70-110 H Perfor med by certified code = 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[facility] - XR CHEST 1 [id number] 12:02:00 [facility] : 1955 Sex: M FAX: Karen Corley MD [phone] [place]: St: ADM FAX: Larry Mock MD [phone] FAX: Dorothy Ventura NP [phone] FAX: Tom Toribio MD [phone] Name: CARLOS MANUEL DOUGLASS [facility] Martin Rodriguez : 1955 Age/S: 68/M [address] [place] [address] Unit #: [id number] Loc: [place] [address] Phys: Dorothy Ventura NPAcct: [id number] Dis Date: Status: ADM IN PHONE #: [phone] Exam Date: 07/18/20231123 FAX #:[phone] Reason: Cardiac Surgery Post Op EXAMS: CPT CODE: [id number] XR CHEST 1 V 14734 CLINICALHISTORY: Cardiac Surgery Post Op TECHNIQUE: AP chest x-ray COMPARISON: Previous day. IMPRESSION: Lowlung volumes. Improved bibasilar interstitial opacities. Stable small left pleural effusion. Cardiomegaly. Removal of Polaris- Deangelo catheter; right IJ sheath remains in place. Placement of enteric tube into the stomach. LOCATION: LP at 1202 Reported and signed by: Jazz Clark D.O. CC: Karen Higginbotham MD; Larry Chatman MD; Dorothy Ventura ALUMINUM FABRICATION SUPERVISOR;Tom Richard MD Technologist: Christiano Corey, RT(R); Dorothy Figueroa RT(R) Trnncrd Date/Time/By: 07/18/2023 (1202) : By: [email or web address] Orig Print D/T: S: 07/18/2023 (4653) PAGE 1 Signed Report- XR ABDOMEN 1V (KUB)2023-07-18 11:40:[address] [facility] [place] [place] MARTIN RODRIGUEZName: CARLOS MANUEL DOUGLASS : 1955 Sex: M FAX: Karen Corley MD [phone] [place]: St: ADM FAX: Larry Mock MD [phone] FAX: Dorothy Ventura NP [phone] FAX: Tom Toribio MD [phone] Name: CARLOS MANUEL DOUGLASS [facility] : 1955 Age/S: 68/M [address] [place] [address] Unit #: [id number] Loc: [address] [address] Phys: Dorothy Ventura NPAcct: [id number] Dis Date: Status: ADM IN PHONE #: [phone] Exam Date: 07/18/2023 1124 FAX #: [phone] Reason: evaluate ileus EXAMS: CPT CODE: [id number] XR ABDOMEN 1V (KUB) 18855 Abdominal radiographs: 2 frontal views. Indication: Evaluate ileus. Comparison: CT abdomen/pelvis dated 07/17/2023. FINDINGS: Scattered multiple mildly prominent small and large bowel loops are noted, with retained contrast noted within the colon, likely from the recent CT abdomen/pelvis dated 07/17/2023. There isno definite radiographic evidence of bowel obstruction. NG tube is noted, with the distal tip and distal sidehole within the stomach. The osseous structures are unchanged. IMPRESSION: Scattered multiple mildly prominent small and large bowel loops noted, with retained contrast noted within the colon, l ikely from the recent CT abdomen/pelvis dated 07/17/2023. Findings are suggestive of persistent mild ileus. No definite radiographic evidence of bowel obstruction. NG tube in place within the stomach. at 1140 Reported and signed by: Hiren Baptiste M.D. 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 Prophylax is of venous thrombos is 2.0 - 3.0 (orthoped ic surgery), Proph ylaxis of venous throm bosis (other than hig h-risk surgery), Treat ment of Deep Vein Thrombosis/Pulm onary Embolism, Preve ntion of systemic emb olism - Tissue heart va lves, Acute Myocardia l Infarction (to prevent systemic emboli sm), Valvular heart disease, Atrial Fibrillation, Bileaflet mecha nical valve in aortic position.2. Mec hanical prosthetic valv es (high risk), 2. 5 - 3.5 Presence of Lup us Anticoagulant o r Antiphospholipi d Antibodies, Pre vention of systemic emb olism - Acute Myocardia l Infarction (to prevent recurrent infar ct). COMMENTS: On arrivalTHROMBOPLASTIN TIME [id number] 01:38:00 Test Item Value Reference Range Interpretation Comments THROMBOPLASTIN TIME 28.8 Seconds 25.0-39.5 N Therape utic Range: PARTIAL (test code = 50.4 - 88.3 Seconds PTT) Effective 01/24/2019 COMMENTS: [facility] [id number] 01:37:00 Test Item Value Reference Range Interpretation Comments WHITE BLOOD CELL (test code = 19.7 x10 3/uL 4.5-11.0 H WBC) RED BLOOD CELL (test code = 3.28 x10 6/uL 4.00-5.60 L RBC) HEMOGLOBIN (test code = HGB) 9.4 g/dL 12.5-16.9 L HEMATOCRIT (test code = HCT) 29.2 % 37.5-50.7 L MEAN CELL VOLUME (test code = 89.0 fL 81.0-99.0 N MCV) MEAN CELL HGB (test code = 28.7 pg 27.0-33.0 N MCH) MEAN CELL HGB CONCETRATION 32.2 g/dL 33.0-37.0 L (test code = MCHC) RED CELL DISTRIBUTION WIDTH CV 13.2 % 11.5-14.5 N (test code = RDW) RED CELL DISTRIBUTION WIDTH SD 43.6 fL 37.0-54.0 N (test code = RDW-SD) PLATELET COUNT (test code = 95 x10 3/uL 150-400 L PLT) IMMATURE PLATELET FRACTION 8.9 % 0.9-11.2 N (test code = IPF) MEAN PLATELET VOLUME (test 11.8 fL 7.0-9.0 H code = MPV) NEUTROPHIL % (test code = NT%) 81.6 % 56.0-77.0 H IMMATURE GRANULOCYTE % (test 0.9 % 0.0-2.0 N code = IG%) LYMPHOCYTE % (test code = LY%) 5.9 % 14.0-32.0 L MONOCYTE % (test code = MO%) 9.1 % 4.8-9.0 H EOSINOPHIL % (test code = EO%) 2.2 % 0.3-3.7 N BASOPHIL % (test code = BA%) 0.3 % 0.0-2.0 N NUCLEATED RBC % (test code = 0.1 % 0-0 H NRBC%) NEUTROPHIL # (test code = NT#) 16.09 x10 3/uL 2.0-7.6 H IMMATURE GRANULOCYTE # (test 0.18 x10 3/uL 0.00-0.03 H code = IG#) LYMPHOCYTE # (test code = LY#) 1.16 x10 3/uL 1.0-3.8 N MONOCYTE # (test code = MO#) 1.80 x10 3/uL 0.1-0.8 H EOSINOPHIL # (test code = EO#) 0.44 x10 3/uL 0.0-0.2 H BASOPHIL # (test code = BA#) 0.06 x10 3/uL 0.0-0.2 N NUCLEATED RBC # (test code = 0.02 x10 3/uL 0.0-0.1 N NRBC#) MANUAL DIFF REQUIRED (test NO code = MDIFF) BASIC METABOLIC [id number] 01:32:00 Test Item Value Reference Range Interpretation Comments SODIUM (test code = 130 mEq/L 134-147 L NA) POTASSIUM (test code 3.6 mEq/L 3.4-5.0 N = K) CHLORIDE (test code 99 mEq/L 100-108 L = CL) CARBON DIOXIDE (test 27 mEq/l 21-33 N code = CO2) ANION GAP (test code 7 0-20 N = GAP) GLUCOSE (test code = 130 mg/dL 77-141 N NOTE: N EW NORMAL RANGE GLU) BLOOD UREA NITROGEN 18 mg/dL 7-25 N NOTE: NE W NORMAL RANGE (test code = BUN) GLOMERULAR 81.5 80-90 N The Glomerular FILTRATION RATE Filtration R ate is a (test code = GFR) calculated parameterbased on serum Creatinine, pat ient age and sex. GFR va luesless than 60 mL/min/ 1.73 square meters a re indicative ofCh ronic Kidney Disease. Values less than 15 mL/min/1.73squa re meters indicate Kidney failure. The calculation forGFR is based on the CKD-EPI (2020) calculat ion. This formulais race indifferent and is the recommended for anabell for GFRby the [facility] Kidney Foundati on for Adults.The GFR will not calculate if th e sex is unknown or if thepatient's ag e is <18 years. CREATININE (test 1.0 mg/dL 0.6-1.3 N code = CREAT) CALCIUM (test code = 8.6 mg/dL 8.0-10.5 N CA) COMMENTS: POD #1HEPATIC FUNCTION [id number] 01:32:00 Test Item Value Reference Range Interpretation Comments TOTAL PROTEIN (test 5.9 g/dL 6.4-8.2 L code = PROT) ALBUMIN (test code = 3.70 g/dL 3.4-5.0 N ALB) BILIRUBIN TOTAL (test 1.30 mg/dL 0.0-1.0 H code = BILT) BILIRUBIN DIRECT (test 0.60 MG/DL 0.1-0.3 H NOTE: NEW NORMAL code = BILD) RANGE BILIRUBIN INDIRECT 0.70 MG/DL (test code = BILIND) SGOT/AST (test code = 48 IUnit/L 8-34 H NOTE: NEW NORMAL AST) RANGE SGPT/ALT (test code = 27 IUnit/L 10-49 N NOTE: NEW NORMAL ALT) RANGE ALKALINE PHOSPHATASE 100 IUnit/L 20-125 N TOTAL (test code = ALKP) COMMENTS: POD #[id number] 01:32:00 Test Item Value Reference Range Interpretation Comments MAGNESIUM (test code = 2.50 mg/dL 1.6-2.6 NOTE: NEW NORMAL MAG) RANGE COMMENTS: POD #1GLUCOSE [id number] 23:42:00 Test Item Value Reference Range Interpretation Comments GLUCOSE BEDSIDE (test 92 MG/DL 70-110 N [facility] med by certified code = 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[facility] BASIC METABOLIC [id number] 21:14:00 Test Item Value Reference Range Interpretation Comments SODIUM (test code = 129 mEq/L 134-147 L NA) POTASSIUM (test code 3.9 mEq/L 3.4-5.0 N = K) CHLORIDE (test code 99 mEq/L 100-108 L = CL) CARBON DIOXIDE (test 30 mEq/l 21-33 N code = CO2) ANION GAP (test code 5 0-20 N = GAP) GLUCOSE (test code = 120 mg/dL 77-141 N NOTE: N EW NORMAL RANGE GLU) BLOOD UREA NITROGEN 17 mg/dL 7-25 N NOTE: NE W NORMAL RANGE (test code = BUN) GLOMERULAR 81.5 80-90 N The Glomerular FILTRATION RATE Filtration R ate is a (test code = GFR) calculated parameterbased on serum Creatinine, pat ient age and sex. GFR va luesless than 60 mL/min/ 1.73 square meters a re indicative ofCh ronic Kidney Disease. Values less than 15 mL/min/1.73squa re meters indicate Kidney failure. The calculation forGFR is based on the CKD-EPI (2020) calculat ion. This formulais race indifferent and is the recommended for anabell for GFRby the [facility] Kidney Foundati on for Adults.The GFR will not calculate if th e sex is unknown or if thepatient's ag e is <18 years. CREATININE (test 1.0 mg/dL 0.6-1.3 N code = CREAT) CALCIUM (test code = 8.9 mg/dL 8.0-10.5 N CA) [id number] 21:14:00 Test Item Value Reference Range Interpretation Comments MAGNESIUM (test code = 2.06 mg/dL 1.6-2.6 N NOTE: NEW NORMAL MAG) RANGE CBC W/AUTO [id number] 21:05:00 Test Item Value Reference Range Interpretation Comments WHITE BLOOD CELL (test code = 18.6 x10 3/uL 4.5-11.0 H WBC) RED BLOOD CELL (test code = 3.16 x10 6/uL 4.00-5.60 L RBC) HEMOGLOBIN (test code = HGB) 9.3 g/dL 12.5-16.9 L HEMATOCRIT (test code = HCT) 28.1 % 37.5-50.7 L MEAN CELL VOLUME (test code = 88.9 fL 81.0-99.0 N MCV) MEAN CELL HGB (test code = 29.4 pg 27.0-33.0 N MCH) MEAN CELL HGB CONCETRATION 33.1 g/dL 33.0-37.0 N (test code = MCHC) RED CELL DISTRIBUTION WIDTH CV 13.1 % 11.5-14.5 N (test code = RDW) RED CELL DISTRIBUTION WIDTH SD 42.8 fL 37.0-54.0 N (test code = RDW-SD) PLATELET COUNT (test code = 88 x10 3/uL 150-400 L PLT) IMMATURE PLATELET FRACTION 9.4 % 0.9-11.2 N (test code = IPF) MEAN PLATELET VOLUME (test 11.2 fL 7.0-9.0 H code = MPV) NEUTROPHIL % (test code = NT%) 82.6 % 56.0-77.0 H IMMATURE GRANULOCYTE % (test 1.3 % 0.0-2.0 N code = IG%) LYMPHOCYTE % (test code = LY%) 6.0 % 14.0-32.0 L MONOCYTE % (test code = MO%) 7.9 % 4.8-9.0 N EOSINOPHIL % (test code = EO%) 1.9 % 0.3-3.7 N BASOPHIL % (test code = BA%) 0.3 % 0.0-2.0 N NUCLEATED RBC % (test code = 0.2 % 0-0 H NRBC%) NEUTROPHIL # (test code = NT#) 15.32 x10 3/uL 2.0-7.6 H IMMATURE GRANULOCYTE # (test 0.24 x10 3/uL 0.00-0.03 H code = IG#) LYMPHOCYTE # (test code = LY#) 1.12 x10 3/uL 1.0-3.8 N MONOCYTE # (test code = MO#) 1.47 x10 3/uL 0.1-0.8 H EOSINOPHIL # (test code = EO#) 0.36 x10 3/uL 0.0-0.2 H BASOPHIL # (test code = BA#) 0.05 x10 3/uL 0.0-0.2 N NUCLEATED RBC # (test code = 0.03 x10 3/uL 0.0-0.1 N NRBC#) NT PRO-BRAIN NATRIURETIC [id number] 20:08:00 Test Item Value Reference Range Interpretation Comments NT PRO-BRAIN NATRIURETIC PEPTI 8221 PG/ML 0-100 H (test code = PROBNP) NT PRO-BRAIN NATRIURETIC [id number] 20:08:00 Test Item Value Reference Range Interpretation Comments NT PRO-BRAIN NATRIURETIC PEPTI 8221 PG/ML 0-100 H (test code = PROBNP) POC ARTERIAL BLOOD [id number] 19:50:00 Test Item Value Reference Range Interpretation Comments POC ARTERIAL BLOOD GAS PH (test 7.454 7.35-7.45 H code = POCPHA) POC ARTERIAL BLOOD GAS PCO2 (test 36.8 mmHg 35.0-45 N code = [id number]) POC TCO2 ARTERIAL (test code = 26.8 POCTCO2) POC ARTERIAL BLOOD GAS PO2 (test 79.5 mmHg 80-100.0 L code = CFUUZ1Z) POC HCO3 ARTERIAL (test code = 25.7 MMOL/L 22.0-26.0 N [id number]) POC BASE EXCESS (test code = 1.9 MMOL/L -4.0-4.0 N POCBEA) POC O2 SATURATION (test code = 96.1 % 90-100 N POCO2S) ABG DELIVERY (test code = CELIA) Cannula ABG TEMPERATURE (test code = 99.4 F TEMPA) ABG SITE (test code = SITEA) Art Line BASIC METABOLIC [id number] 19:50:00 Test Item Value Reference Range Interpretation Comments SODIUM (test code = NA/ABG) 132 mmol/L 134-147 L POTASSIUM (test code = K/ABG) 3.8 mmol/L 3.4-5.0 N CHLORIDE (test code = CL/ABG) 96 mmol/L 100-108 L CREATININE ABG (test code = 0.9 mg/dL 0.8-1.3 N CREAABG) POC IONIZED CALCIUM (test code = 1.19 MMOL/L 1.12-1.32 N POCCA) POC GLUCOSE (test code = POCGLU) 124 MG/DL 70-110 H HEMOGLOBIN [id number] 19:50:00 Test Item Value Reference Range Interpretation Comments HEMOGLOBIN ABG (test code = HGB/ABG) 9.6 G/DL 12.5-16.9 L [id number] 19:50:00 Test Item Value Reference Range Interpretation Comments HEMATOCRIT (test code = HCT/ABG) 28 % 37.5-50.7 L GLUCOSE [id number] 18:07:00 Test Item Value Reference Range Interpretation Comments GLUCOSE BEDSIDE (test 144 MG/DL 70-110 H Perfor med by certified code = 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[facility] BASIC METABOLIC [id number] 17:35:00 Test Item Value Reference Range Interpretation Comments SODIUM (test code = 130 mEq/L 134-147 L NA) POTASSIUM (test code 3.9 mEq/L 3.4-5.0 N = K) CHLORIDE (test code 96 mEq/L 100-108 L = CL) CARBON DIOXIDE (test 29 mEq/l 21-33 N code = CO2) ANION GAP (test code 10 0-20 N = GAP) GLUCOSE (test code = 128 mg/dL 77-141 NOTE: N EW NORMAL RANGE GLU) BLOOD UREA NITROGEN 19 mg/dL 7-25 N NOTE: NE W NORMAL RANGE (test code = BUN) GLOMERULAR 72.7 80-90 L The Glomerular FILTRATION RATE Filtration R ate is a (test code = GFR) calculated parameterbased on serum Creatinine, pat ient age and sex. GFR va luesless than 60 mL/min/ 1.73 square meters a re indicative ofCh ronic Kidney Disease. Values less than 15 mL/min/1.73squa re meters indicate Kidney failure. The calculation forGFR is based on the CKD-EPI (2020) calculat ion. This formulais race indifferent and is the recommended for anabell for GFRby the Natio nal Kidney Foundati on for Adults.The GFR will not calculate if th e sex is unknown or if thepatient's ag e is <18 years. CREATININE (test 1.1 mg/dL 0.6-1.3 N code = CREAT) CALCIUM (test code = 8.7 mg/dL 8.0-10.5 N CA) - CT ABD PELVIS W/O [id number] 15:32:00 [facility] : 1955 Sex: M Name:CARLOS MANUEL DOUGLASS [facility] : 1955 Age/S: 68 / M [address] [facility] [address] Unit #: [id number] Loc: [place] [address] Phys: John Wong MD Acct: [id number] Dis Date: Status: ADM IN PHONE #: [phone] Exam Date: 07/17/20231510 FAX #: [phone] Reason: Abd distention EXAMS: CPT CODE:[id number] CT ABD PELVIS W/O CONT 69264 EXAM: - CT ABD PELVIS W/O CONT INDICATION: Abd distention TECHNIQUE: CT of the abdomen and pelvis was performed with no intravenous contrast. All CT scans are performed using radiation dose reduction technique. Location:T18 One or more of the following dose-optimizing techniques was utilized for this exam: automated exposure control, adjustment of the mA and/or kV according to patient size, and/or use of iterative reconstruction technique. Unless otherwise speci fied, incidental findings do not require dedicated imaging follow-up. FINDINGS: Statements: Lack ofintravenous contrast diminishes sensitivity for evaluation of abdominopelvic organs and vasculature.Visualized chest: Pkyvc-ch-bnulgtjs bilateral pleural effusions with associated consolidation. Indwelling mediastinal/chest tubes identified. Mild cardiomegaly. Hepatobiliary: Liver appears unremarkable. Gallbladder appears unremarkable. No intrahepatic and extrahepatic biliary ductal dilation seen. Pancreas: Appears unremarkable. Spleen: Appears unremarkable. Adrenal glands: Appear unremarkable. Kidneys: Appear unremarkable. Gastrointestinal: Appendix: Is seen and appears unremarkable. Bowel: Multiple prominent gas and fluid-filled bowel loops identified throughout the abdomen, nonspecific, potentially ileus. There is no steff bowel obstruction seen. Vascular: Abdominal aortic aneurysm identified measuring 4.5 cm in AP dimension. Lymph nodes: No enlarged lymph nodes seen. PAGE 1 Signed Report (CONTINUED) Name: CARLOS MANUEL DOUGLASS [facility] : 1955 Age/S: 68 / M [address] [place] [address] Unit #: [id number] Loc: [place] [address] Phys: John Wong MD Acct: [id number] Dis Date: Status: ADM IN PHONE #: [phone] Exam Date: 07/17/20231510 FAX #: [phone] Reason: Abd distention EXAMS: CPT CODE: [id number] CT ABD PELVIS W/O CONT 89717 (Continued) Peritoneum: No ascites or freeair is seen. T Genitourinary: Urinary bladder appears to be decompressed due to Bhagat catheter. Softtissues:Foci of soft tissue gas noted in the right femoral and inguinal region, suggesting recent intervention. Bones:No acute or destructive osseous process seen. IMPRESSION: Multiple prominent gas and fluid-filled bowel loops throughout the abdomen, potentially ileus. No steff bowel obstruction seen. Abdominal aortic aneurysm measuring up to 4.5 cm in AP dimension. Vascular specialist consultation. Follow-up imaging in 6 months. Please refer to the findings section for additional details. at 1532 Reported and signed by: Sivakumar Arambula M.D. 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[facility] COMPREHENSIVE METABOLIC [id number] 12:03:00 Test Item Value Reference Range Interpretation Comments SODIUM (test code = 132 mEq/L 134-147 L NA) POTASSIUM (test code 4.5 mEq/L 3.4-5.0 N = K) CHLORIDE (test code 98 mEq/L 100-108 L = CL) CARBON DIOXIDE (test 24 mEq/l 21-33 N code = CO2) ANION GAP (test code 15 0-20 N = GAP) GLUCOSE (test code = 176 mg/dL 77-141 H NOTE: N EW NORMAL RANGE GLU) BLOOD UREA NITROGEN 20 mg/dL 7-25 N NOTE: NE W NORMAL RANGE (test code = BUN) GLOMERULAR 65.5 80-90 L The Glomerular FILTRATION RATE Filtration R ate is a (test code = GFR) calculated parameterbased on serum Creatinine, pat ient age and sex. GFR va luesless than 60 mL/min/ 1.73 square meters a re indicative ofCh ronic Kidney Disease. Values less than 15 mL/min/1.73squa re meters indicate Kidney failure. The calculation for GFR is based on the CK D-EPI (2020) calculat ion. This formulais race indifferent and is the recommended for anabell for GFRby the [facility] for Adults.The GFR will not calculate if th e sex is unknown or if thepatient's ag e is <18 years. CREATININE (test 1.2 mg/dL 0.6-1.3 N code = CREAT) TOTAL PROTEIN (test 6.3 g/dL 6.4-8.2 L code = PROT) ALBUMIN (test code = 4.20 g/dL 3.4-5.0 N ALB) CALCIUM (test code = 9.0 mg/dL 8.0-10.5 N CA) BILIRUBIN TOTAL 1.50 mg/dL 0.0-1.0 H (test code = BILT) SGOT/AST (test code 52 IUnit/L 8-34 H NOTE: NE W NORMAL RANGE = AST) SGPT/ALT (test code 22 IUnit/L 10-49 N NOTE: NE W NORMAL RANGE = ALT) ALKALINE PHOSPHATASE 90 IUnit/L 20-125 N TOTAL (test code = ALKP) [id number] 12:03:00 Test Item Value Reference Range Interpretation Comments MAGNESIUM (test code = 2.20 mg/dL 1.6-2.6 N NOTE: NEW NORMAL MAG) RANGE LACTIC [id number] 11:56:00 Test Item Value Reference Range Interpretation Comments LACTIC ACID (test code = LACT) 1.9 mmol/L 0.4-1.9 N PROTHROMBIN [id number] 11:54:00 Test Item Value Reference Range Interpretation Comments PROTHROMBIN TIME 19.1 SECONDS 9.3-12.9 H PATIENT (test code = PTP) INTERNATIONAL NORMAL 1.7 0.8-1.2 H TARGET INR BY RATIO (test code = INDICATIO N Indication INR) INR1. Prophylax is of venous thrombos is 2.0 - 3.0 (orthoped ic surgery), Proph ylaxis of venous throm bosis (other than hig h-risk surgery), Treat ment of Deep Vein Thrombosis/Pulm onary Embolism, Preve ntion of systemic emb olism - Tissue heart va lves, Acute Myocardia l Infarction (to prevent systemic emboli sm), Valvular heart disease, Atrial Fibrillation, Bileaflet mecha nical valve in aortic position.2. Mec hanical prosthetic valv es (high risk), 2. 5 - 3.5 Presence of Lup us Anticoagulant o r Antiphospholipi d Antibodies, Pre vention of systemic emb olism - Acute Myocardia l Infarction (to prevent recurrent infar ct). CBC W/AUTO [id number] 11:35:00 Test Item Value Reference Range Interpretation Comments WHITE BLOOD CELL (test code = 19.3 x10 3/uL 4.5-11.0 H WBC) RED BLOOD CELL (test code = 3.19 x10 6/uL 4.00-5.60 L RBC) HEMOGLOBIN (test code = HGB) 9.3 g/dL 12.5-16.9 L HEMATOCRIT (test code = HCT) 28.9 % 37.5-50.7 L MEAN CELL VOLUME (test code = 90.6 fL 81.0-99.0 N MCV) MEAN CELL HGB (test code = 29.2 pg 27.0-33.0 N MCH) MEAN CELL HGB CONCETRATION 32.2 g/dL 33.0-37.0 L (test code = MCHC) RED CELL DISTRIBUTION WIDTH CV 13.2 % 11.5-14.5 N (test code = RDW) RED CELL DISTRIBUTION WIDTH SD 43.6 fL 37.0-54.0 N (test code = RDW-SD) PLATELET COUNT (test code = 92 x10 3/uL 150-400 L PLT) IMMATURE PLATELET FRACTION 8.3 % 0.9-11.2 N (test code = IPF) MEAN PLATELET VOLUME (test 11.2 fL 7.0-9.0 H code = MPV) NEUTROPHIL % (test code = NT%) 84.2 % 56.0-77.0 H IMMATURE GRANULOCYTE % (test 1.3 % 0.0-2.0 N code = IG%) LYMPHOCYTE % (test code = LY%) 4.8 % 14.0-32.0 L MONOCYTE % (test code = MO%) 8.4 % 4.8-9.0 N EOSINOPHIL % (test code = EO%) 1.0 % 0.3-3.7 N BASOPHIL % (test code = BA%) 0.3 % 0.0-2.0 N NUCLEATED RBC % (test code = 0.0 % 0-0 N NRBC%) NEUTROPHIL # (test code = NT#) 16.29 x10 3/uL 2.0-7.6 H IMMATURE GRANULOCYTE # (test 0.25 x10 3/uL 0.00-0.03 H code = IG#) LYMPHOCYTE # (test code = LY#) 0.92 x10 3/uL 1.0-3.8 L MONOCYTE # (test code = MO#) 1.62 x10 3/uL 0.1-0.8 H EOSINOPHIL # (test code = EO#) 0.19 x10 3/uL 0.0-0.2 N BASOPHIL # (test code = BA#) 0.05 x10 3/uL 0.0-0.2 N NUCLEATED RBC # (test code = 0.00 x10 3/uL 0.0-0.1 N NRBC#) POC ARTERIAL BLOOD [id number] 11:13:00 Test Item Value Reference Range Interpretation Comments POC ARTERIAL BLOOD GAS PH (test 7.418 7.35-7.45 N code = POCPHA) POC ARTERIAL BLOOD GAS PCO2 (test 35.8 mmHg 35.0-45 N code = [id number]) POC TCO2 ARTERIAL (test code = 24.2 POCTCO2) POC ARTERIAL BLOOD GAS PO2 (test 62.2 mmHg 80-100.0 L code = IGFIC4X) POC HCO3 ARTERIAL (test code = 23.1 MMOL/L 22.0-26.0 N [id number]) POC BASE EXCESS (test code = -1.4 MMOL/L -4.0-4.0 N POCBEA) POC O2 SATURATION (test code = 92.0 % 90-100 N POCO2S) ABG DELIVERY (test code = CELIA) Cannula ABG SITE (test code = SITEA) Art Line BASIC METABOLIC [id number] 11:13:00 Test Item Value Reference Range Interpretation Comments SODIUM (test code = NA/ABG) 131 mmol/L 134-147 L POTASSIUM (test code = K/ABG) 4.4 mmol/L 3.4-5.0 N CHLORIDE (test code = CL/ABG) 96 mmol/L 100-108 L CREATININE ABG (test code = 1.1 mg/dL 0.8-1.3 N CREAABG) POC IONIZED CALCIUM (test code = 1.19 MMOL/L 1.12-1.32 N POCCA) POC GLUCOSE (test code = POCGLU) 171 MG/DL 70-110 H HEMOGLOBIN [id number] 11:13:00 Test Item Value Reference Range Interpretation Comments HEMOGLOBIN ABG (test code = 10.2 G/DL 12.5-16.9 L HGB/ABG) [id number] 11:13:00 Test Item Value Reference Range Interpretation Comments HEMATOCRIT (test code = HCT/ABG) 30 % 37.5-50.7 L POC LACTIC [id number] 11:13:00 Test Item Value Reference Range Interpretation Comments POC LACTIC ACID (test code = 1.8 mmol/l 0.9-1.7 H POCLAC) - XR ABDOMEN 1V (KUB)2023-07-17 11:11:00 [facility] : 1955 Sex: M FAX: Karen Corley MD [phone] [place]: St: ADM FAX: Larry Mock MD [phone] FAX: John Wong MD [phone] FAX: Tom Toribio MD [phone] Name: CARLOS MANUEL DOUGLASS [facility] : 1955 Age/S: 68/M [address] [place] [address] Unit #: [id number] Loc: [place] [address] Phys: John Wong MD Acct: [id number] Dis Date: Status: ADM IN PHONE #: [phone] Exam Date: 07/17/2023 1102 FAX #: [phone] Reason: vomitting, NGT placement EXAMS: CPT CODE: [id number] XR ABDOMEN 1V (KUB) 89007 H 20TIME OF STUDY: 07/17/2023 10:35 AM REASON FOR EXAM: vomiting, NGT placement COMPARISON: None. 2 viewsof the abdomen demonstrate enteric tube in place in the stomach. Mild diffuse gaseous dilatation of small and large bowel. No large collections of free air seen. IMPRESSION: 1. Enteric tube in place in the stomach. 2. Findings suggestive of ileus. at 1111 Reported and signed by: Abhinav Castillo M.D. CC: Karen Higginbotham MD; Larry Chatman MD; Vick TOMAS; Tom Richard MD Technologist: Christiano Corey, RT(R) Trnscrd Date/Time/By: 07/17/2023 (1111) : By: [email or web address] Orig Print D/T: S: 07/17/2023 (1114) PAGE 1 Signed Report- XR CHEST 1 [id number] 11:07:00 [facility] : 1955 Sex: M FAX: Karen Corley MD [phone] [place]: St: ADM FAX: Larry Mock MD [phone] FAX: John Wong MD [phone] FAX: Tom Toribio MD [phone] Name: CARLOS MANUEL DOUGLASS [facility] : 1955 Age/S: 68/M [address] [place] [address] Unit #: [id number] Loc: G.[address] [place] [address] Phys: John Wong MD Acct: [id number] Dis Date: Status: ADM IN PHONE #: [phone] Exam Date: 07/17/20231101 FAX #: [phone] Reason: vomitting, NGT placement EXAMS: CPT CODE: [id number] XR CHEST 1 V 45402 H 20 TIMEOF STUDY: 07/17/2023 10:35 AM REASON FOR EXAM: vomiting, NGT placement COMPARISON: Chest radiograph on the same date. FINDINGS: AP view of the chest was obtained. Support devices: Interval removal of the Polaris-Deangelo catheter. Right jugular central venous catheter and mediastinal drain are stable. Enterictube is seen traversing the radiograph. Lungs: Minimal hazy bibasilar opacities and mild central vascular congestion are unchanged. Pleura: No pneumothorax. Small bilateral pleural effusions. Heart and Mediastinum: Mild cardiomegaly and calcific atherosclerosis. Bones: Post CABG changes are evident.The median sternotomy wires are in the expected configuration. . IMPRESSION: 1. Expected post CABG changes with interval removal of the Polaris-Deangelo catheter. 2. Enteric tube seen traversing the radiograph. at 1107 Reported and signed by: Abhinav Castillo M.D. CC: Karen Higginbotham MD; Larry Chatman MD; John Wong MD; Tom Richard MD Technologist: Christiano Corey RT(R) Trnscrd Date/Time/By: 07/17/2023 (9935) : By: [email or web address] Orig Print D/T: S: 07/17/2023 (2035) PAGE 1 Signed ReportBASIC METABOLIC PANEL 2023-07-17 09:34:00 Test Item Value Reference Range Interpretation Comments SODIUM (test code = 130 mEq/L 134-147 L NA) POTASSIUM (test code 4.6 mEq/L 3.4-5.0 N = K) CHLORIDE (test code 100 mEq/L 100-108 N = CL) CARBON DIOXIDE (test 26 mEq/l 21-33 N code = CO2) ANION GAP (test code 9 0-20 N = GAP) GLUCOSE (test code = 143 mg/dL 77-141 H NOTE: N EW NORMAL RANGE GLU) BLOOD UREA NITROGEN 19 mg/dL 7-25 N NOTE: NE W NORMAL RANGE (test code = BUN) GLOMERULAR 72.7 80-90 L The Glomerular FILTRATION RATE Filtration R ate is a (test code = GFR) calculated parameterbased on serum Creatinine, pat ient age and sex. GFR va luesless than 60 mL/min/ 1.73 square meters a re indicative ofCh ronic Kidney Disease. Values less than 15 mL/min/1.73squa re meters indicate Kidney failure. The calculation forGFR is based on the CKD-EPI (2020) calculat ion. This formulais race indifferent and is the recommended for anabell for GFRby the [facility] on for Adults.The GFR will not calculate if th e sex is unknown or if thepatient's ag e is <18 years. 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 [place] [place] MARTIN RODRIGUEZName: CARLOS MANUEL DOUGLASS : 1955 Sex: M FAX: Karen Corley MD [phone] [place]: St: ADM FAX: Larry Mock MD [phone] FAX: Dorothy Ventura NP [phone] FAX: Tom Toribio MD [phone] Name: CARLOS MANUEL DOUGLASS [facility] Martin Rodriguez : 1955 Age/S: 68/M [address] [place] [address] Unit #: [id number] Loc: [address] [place] [address] Phys: Dorothy Ventura NPAcct: [id number] Dis Date: Status: ADM IN PHONE #: [phone] Exam Date: 07/17/2023 [facility] FAX #: [phone] Reason: Cardiac Surgery Post Op EXAMS: CPT CODE: [id number] XR CHEST 1 V 11074 H 20 TIMEOF STUDY: 07/17/2023 5:00 AM REASON FOR EXAM: Cardiac Surgery Post Op COMPARISON: One day prior. FINDINGS: AP view of the chest was obtained. Support devices: Stable support devices. Lungs: Minimal hazy bibasilar opacities and mild central vascular congestion are unchanged. Pleura: No pneumothorax. Small bilateral pleural effusions. Heart and Mediastinum: Mild cardiomegaly and calcific atherosclerosis. Bones: Post CABG changes are evident. The median sternotomy wires are in the expected configuration. . IMPRESSION: 1. Expected post CABG changes as above. at 0856 Reported and signed by: Abhinav Castillo M.D. CC: Karen Higginbotham MD; Larry Chatman MD; Dorothy Ventura ALUMINUM FABRICATION SUPERVISOR; Tom Richard MD Technologist: Christiano Corey, RT(R); Dorothy Figueroa, RT(R) Trnscrd Date/Time/By: 07/17/2023 (0856) : By: [email or web address] Orig Print D/T: S: 07/17/2023 (0887) PAGE 1 Signed Report POC ARTERIAL BLOOD [id number] 06:43:00 Test Item Value Reference Range Interpretation Comments POC ARTERIAL BLOOD GAS PH (test 7.375 7.35-7.45 N code = POCPHA) POC ARTERIAL BLOOD GAS PCO2 (test 39.8 mmHg 35.0-45 N code = [id number]) POC TCO2 ARTERIAL (test code = 24.3 POCTCO2) POC ARTERIAL BLOOD GAS PO2 (test 64.6 mmHg 80-100.0 L code = BVBWL4S) POC HCO3 ARTERIAL (test code = 23.2 MMOL/L 22.0-26.0 N [id number]) POC BASE EXCESS (test code = -1.9 MMOL/L -4.0-4.0 N POCBEA) POC O2 SATURATION (test code = 91.1 % 90-100 N POCO2S) ABG TEMPERATURE (test code = 99.7 F TEMPA) ABG SITE (test code = SITEA) Art Line BASIC METABOLIC [id number] 06:43:00 Test Item Value Reference Range Interpretation Comments SODIUM (test code = NA/ABG) 133 mmol/L 134-147 L POTASSIUM (test code = K/ABG) 4.5 mmol/L 3.4-5.0 N CHLORIDE (test code = CL/ABG) 95 mmol/L 100-108 L CREATININE ABG (test code = 1.0 mg/dL 0.8-1.3 N CREAABG) POC IONIZED CALCIUM (test code = 1.17 MMOL/L 1.12-1.32 N POCCA) POC GLUCOSE (test code = POCGLU) 144 MG/DL 70-110 H HEMOGLOBIN [id number] 06:43:00 Test Item Value Reference Range Interpretation Comments HEMOGLOBIN ABG (test code = HGB/ABG) 9.4 G/DL 12.5-16.9 L [id number] 06:43:00 Test Item Value Reference Range Interpretation Comments HEMATOCRIT (test code = HCT/ABG) 28 % 37.5-50.7 L CBC W/AUTO [id number] 03:24:00 Test Item Value Reference Range Interpretation Comments WHITE BLOOD CELL (test code = 17.5 x10 3/uL 4.5-11.0 H WBC) RED BLOOD CELL (test code = 3.06 x10 6/uL 4.00-5.60 L RBC) HEMOGLOBIN (test code = HGB) 9.0 g/dL 12.5-16.9 L HEMATOCRIT (test code = HCT) 27.7 % 37.5-50.7 L MEAN CELL VOLUME (test code = 90.5 fL 81.0-99.0 MCV) MEAN CELL HGB (test code = 29.4 pg 27.0-33.0 N MCH) MEAN CELL HGB CONCETRATION 32.5 g/dL 33.0-37.0 L (test code = MCHC) RED CELL DISTRIBUTION WIDTH CV 13.5 % 11.5-14.5 N (test code = RDW) RED CELL DISTRIBUTION WIDTH SD 44.5 fL 37.0-54.0 N (test code = RDW-SD) PLATELET COUNT (test code = 85 x10 3/uL 150-400 L PLT) IMMATURE PLATELET FRACTION 6.8 % 0.9-11.2 N (test code = IPF) MEAN PLATELET VOLUME (test 11.5 fL 7.0-9.0 H code = MPV) NEUTROPHIL % (test code = NT%) 80.8 % 56.0-77.0 H IMMATURE GRANULOCYTE % (test 0.7 % 0.0-2.0 N code = IG%) LYMPHOCYTE % (test code = LY%) 6.7 % 14.0-32.0 L MONOCYTE % (test code = MO%) 9.8 % 4.8-9.0 H EOSINOPHIL % (test code = EO%) 1.8 % 0.3-3.7 N BASOPHIL % (test code = BA%) 0.2 % 0.0-2.0 N NUCLEATED RBC % (test code = 0.0 % 0-0 N NRBC%) NEUTROPHIL # (test code = NT#) 14.10 x10 3/uL 2.0-7.6 H IMMATURE GRANULOCYTE # (test 0.12 x10 3/uL 0.00-0.03 H code = IG#) LYMPHOCYTE # (test code = LY#) 1.17 x10 3/uL 1.0-3.8 N MONOCYTE # (test code = MO#) 1.71 x10 3/uL 0.1-0.8 H EOSINOPHIL # (test code = EO#) 0.32 x10 3/uL 0.0-0.2 H BASOPHIL # (test code = BA#) 0.04 x10 3/uL 0.0-0.2 N NUCLEATED RBC # (test code = 0.00 x10 3/uL 0.0-0.1 N NRBC#) MANUAL DIFF REQUIRED (test NO code = MDIFF) PLT [id number] 03:24:00 Test Item Value Reference Range Interpretation Comments PLATELET ESTIMATE (test code 80-100 THOUSAND ADEQUATE = PLTEST) PLATELET MORPHOLOGY (test LARGE PLATELETS code = PLTMORPH) BASIC METABOLIC [id number] 03:14:00 Test Item Value Reference Range Interpretation Comments SODIUM (test code = 135 mEq/L 134-147 N NA) POTASSIUM (test code 5.1 mEq/L 3.4-5.0 H = K) CHLORIDE (test code 103 mEq/L 100-108 N = CL) CARBON DIOXIDE (test 26 mEq/l 21-33 N code = CO2) ANION GAP (test code 11 0-20 N = GAP) GLUCOSE (test code = 135 mg/dL 77-141 NOTE: N EW NORMAL RANGE GLU) BLOOD UREA NITROGEN 17 mg/dL 7-25 N NOTE: NE W NORMAL RANGE (test code = BUN) GLOMERULAR 72.7 80-90 L The Glomerular FILTRATION RATE Filtration R ate is a (test code = GFR) calculated parameterbased on serum Creatinine, pat ient age and sex. GFR va luesless than 60 mL/min/ 1.73 square meters a re indicative ofCh ronic Kidney Disease. Values less than 15 mL/min/1.73squa re meters indicate Kidney failure. The calculation forGFR is based on the CKD-EPI (2020) calculat ion. This formulais race indifferent and is the recommended for anabell for GFRby the [facility] Kidney Foundati on for Adults.The GFR will not calculate if th e sex is unknown or if thepatient's ag e is <18 years. CREATININE (test 1.1 mg/dL 0.6-1.3 N code = CREAT) CALCIUM (test code = 8.6 mg/dL 8.0-10.5 N CA) COMMENTS: POD #1HEPATIC FUNCTION [id number] 03:14:00 Test Item Value Reference Range Interpretation Comments TOTAL PROTEIN (test 5.9 g/dL 6.4-8.2 L code = PROT) ALBUMIN (test code = 3.90 g/dL 3.4-5.0 N ALB) BILIRUBIN TOTAL (test 1.30 mg/dL 0.0-1.0 H code = BILT) BILIRUBIN DIRECT (test 0.70 MG/DL 0.1-0.3 H NOTE: NEW NORMAL code = BILD) RANGE BILIRUBIN INDIRECT 0.60 MG/DL (test code = BILIND) SGOT/AST (test code = 44 IUnit/L 8-34 H NOTE: NEW NORMAL AST) RANGE SGPT/ALT (test code = 16 IUnit/L 10-49 N NOTE: NEW NORMAL ALT) RANGE ALKALINE PHOSPHATASE 78 IUnit/L 20-125 N TOTAL (test code = ALKP) COMMENTS: POD #[id number] 03:14:00 Test Item Value Reference Range Interpretation Comments MAGNESIUM (test code = 1.97 mg/dL 1.6-2.6 NOTE: NEW NORMAL MAG) RANGE COMMENTS: POD #1GLUCOSE [id number] 00:21:00 Test Item Value Reference Range Interpretation Comments GLUCOSE BEDSIDE (test 157 MG/DL 70-110 H Perfor med by certified code = 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[facility] POC ARTERIAL BLOOD [id number] 22:36:00 Test Item Value Reference Range Interpretation Comments POC ARTERIAL BLOOD GAS PH (test 7.394 7.35-7.45 N code = POCPHA) POC ARTERIAL BLOOD GAS PCO2 (test 37.4 mmHg 35.0-45 N code = [id number]) POC TCO2 ARTERIAL (test code = 23.8 POCTCO2) POC ARTERIAL BLOOD GAS PO2 (test 70.6 mmHg 80-100.0 L code = ZCAIQ1J) POC HCO3 ARTERIAL (test code = 22.7 MMOL/L 22.0-26.0 N [id number]) POC BASE EXCESS (test code = -2.1 MMOL/L -4.0-4.0 N POCBEA) POC O2 SATURATION (test code = 93.3 % 90-100 N POCO2S) ABG DELIVERY (test code = CELIA) Cannula ABG TEMPERATURE (test code = 99.9 F TEMPA) ABG SITE (test code = SITEA) Art Line BASIC METABOLIC [id number] 22:36:00 Test Item Value Reference Range Interpretation Comments SODIUM (test code = NA/ABG) 135 mmol/L 134-147 N POTASSIUM (test code = K/ABG) 4.5 mmol/L 3.4-5.0 N CHLORIDE (test code = CL/ABG) 100 mmol/L 100-108 N CREATININE ABG (test code = 1.0 mg/dL 0.8-1.3 N CREAABG) POC IONIZED CALCIUM (test code = 1.15 MMOL/L 1.12-1.32 N POCCA) POC GLUCOSE (test code = POCGLU) 162 MG/DL 70-110 H HEMOGLOBIN [id number] 22:36:00 Test Item Value Reference Range Interpretation Comments HEMOGLOBIN ABG (test code = HGB/ABG) 9.1 G/DL 12.5-16.9 L [id number] 22:36:00 Test Item Value Reference Range Interpretation Comments HEMATOCRIT (test code = HCT/ABG) 27 % 37.5-50.7 L GLUCOSE [id number] 20:42:00 Test Item Value Reference Range Interpretation Comments GLUCOSE BEDSIDE (test 166 MG/DL 70-110 H [facility] med by certified code = 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[facility] BASIC METABOLIC [id number] 17:58:00 Test Item Value Reference Range Interpretation Comments SODIUM (test code = 138 mEq/L 134-147 N NA) POTASSIUM (test code 5.0 mEq/L 3.4-5.0 = K) CHLORIDE (test code 104 mEq/L 100-108 N = CL) CARBON DIOXIDE (test 25 mEq/l 21-33 N code = CO2) ANION GAP (test code 14 0-20 N = GAP) GLUCOSE (test code = 186 mg/dL 77-141 H NOTE: N EW NORMAL RANGE GLU) BLOOD UREA NITROGEN 17 mg/dL 7-25 N NOTE: NE W NORMAL RANGE (test code = BUN) GLOMERULAR 59.5 80-90 L The Glomerular FILTRATION RATE Filtration R ate is a (test code = GFR) calculated parameterbased on serum Creatinine, pat ient age and sex. GFR va luesless than 60 mL/min/ 1.73 square meters a re indicative ofCh ronic Kidney Disease. Values less than 15 mL/min/1.73squa re meters indicate Kidney failure. The calculation forGFR is based on the CKD-EPI (2020) calculat ion. This formulais race indifferent and is the recommended for anabell for GFRby the [facility] Kidney Foundati on for Adults.The GFR will not calculate if th e sex is unknown or if thepatient's ag e is <18 years. CREATININE (test 1.3 mg/dL 0.6-1.3 N code = CREAT) CALCIUM (test code = 8.3 mg/dL 8.0-10.5 N CA) POC ARTERIAL BLOOD [id number] 16:53:00 Test Item Value Reference Range Interpretation Comments POC ARTERIAL BLOOD GAS PH (test 7.415 7.35-7.45 N code = POCPHA) POC ARTERIAL BLOOD GAS PCO2 (test 38.3 mmHg 35.0-45 N code = [id number]) POC TCO2 ARTERIAL (test code = 25.5 POCTCO2) POC ARTERIAL BLOOD GAS PO2 (test 86.2 mmHg 80-100.0 N code = MRZTS7W) POC HCO3 ARTERIAL (test code = 24.4 MMOL/L 22.0-26.0 N [id number]) POC BASE EXCESS (test code = 0.0 MMOL/L -4.0-4.0 N POCBEA) POC O2 SATURATION (test code = 96.4 % 90-100 N POCO2S) ABG DELIVERY (test code = CELIA) Cannula ABG TEMPERATURE (test code = 99.7 F TEMPA) ABG SITE (test code = SITEA) Art Line BASIC METABOLIC [id number] 16:53:00 Test Item Value Reference Range Interpretation Comments SODIUM (test code = NA/ABG) 137 mmol/L 134-147 N POTASSIUM (test code = K/ABG) 5.0 mmol/L 3.4-5.0 N CHLORIDE (test code = CL/ABG) 104 mmol/L 100-108 N CREATININE ABG (test code = 1.2 mg/dL 0.8-1.3 CREAABG) POC IONIZED CALCIUM (test code = 1.15 MMOL/L 1.12-1.32 N POCCA) POC GLUCOSE (test code = POCGLU) 193 MG/DL 70-110 H HEMOGLOBIN [id number] 16:53:00 Test Item Value Reference Range Interpretation Comments HEMOGLOBIN ABG (test code = HGB/ABG) 9.3 G/DL 12.5-16.9 L [id number] 16:53:00 Test Item Value Reference Range Interpretation Comments HEMATOCRIT (test code = HCT/ABG) 27 % 37.5-50.7 L POC LACTIC [id number] 16:53:00 Test Item Value Reference Range Interpretation Comments POC LACTIC ACID (test code = 1.6 mmol/l 0.9-1.7 N POCLAC) UR SODIUM [id number] 14:35:00 Test Item Value Reference Range Interpretation Comments UR SODIUM RANDOM 34 MEQ/L The Referen ce Range and (test code = AUREA) Method Per formance specificationsh ave not been established for this fluid. The test result should be correlated into the clinical context forinte rpretation. UR CREATININE [id number] 14:35:00 Test Item Value Reference Range Interpretation Comments UR CREATININE 221.0 mg/dL The Reference Range and RANDOM (test code Method Per formance = CREATU) specificationsh ave not been establishe d for this fluid. The test resultshould be correlated into the clinical contex t forinterpretati on. 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[facility] - US RETROPERITONEAL [id number] 09:57:00 [facility] : 1955 Sex: M Name:CARLOS MANUEL DOUGLASS [facility] : 1955 Age/S: 68 / M [address] [place] [address] Blvd Unit #: [id number] Loc: [place] [address] Phys: Juan Pablo Mast MD Acct: [id number] Dis Date: Status: ADM IN PHONE #: [phone] Exam Date: 07/16/2023 0943 FAX #: [phone] Reason: ELEVATED CR EXAMS: CPT CODE: [id number] US RETROPERITONEAL COM [id number] Location Code: S17 EXAMINATION: - US RETROPERITONEAL COM CLINICAL INDICATION: Male, 68 years old with ELEVATED CR COMPARISON: None TECHNIQUE: Grayscale, color Doppler, and spectral waveform analysis of the kidneys and bladder is performed. FINDINGS: Kidneys: There is normal renal cortical echogenicity. Right Kidney: The right kidney measures 10.2 x 4.3 x 4.5 cm in size. No hydronephrosis. No suspicious renal mass noted. No renal calculi noted. Left Kidney: The left kidney measures 10.0 x 4.8 x 4.4 cm in size. No hydronephrosis. No suspicious renal mass noted. No renal calculi noted. Bladder: The bladder is not distended, which precludes its evaluation. IMPRESSION: Essentially unremarkable examination. No evidence of hydronephrosis. at 0957 Reported and signed by: Sunil Thompson M.D. CC: Karen Moreno MD; Larry Chatman MD; Juan Pablo Mast MD; Tom Richard MD Technologist: Florence Ashley RDMS(AB) Trnscb Date/Time: 07/16/2023 (09) [email or web address] Orig Print D/T: S: 07/16/2023 (1000) Probe: PAGE 1 Signed ReportPROTHROMBIN [id number] 09:02:00 Test Item Value Reference Range Interpretation Comments PROTHROMBIN TIME 19.3 SECONDS 9.3-12.9 H PATIENT (test code = PTP) INTERNATIONAL NORMAL 1.7 0.8-1.2 H [facility] INR BY RATIO (test code = INDICATIO N Indication INR) INR1. Prophylax is of venous thrombos is 2.0 - 3.0 (orthoped ic surgery), Proph ylaxis of venous throm bosis (other than hig h-risk surgery), Treat ment of Deep Vein Thrombosis/Pulm onary Embolism, Preve ntion of systemic emb olism - Tissue heart va lves, Acute Myocardia l Infarction (to prevent systemic emboli sm), Valvular heart disease, Atrial Fibrillation, Bileaflet mecha nical valve in aortic position.2. Mec hanical prosthetic valv es (high risk), 2. 5 - 3.5 Presence of Lup us Anticoagulant o r Antiphospholipi d Antibodies, Pre vention of systemic emb olism - Acute Myocardia l Infarction (to prevent recurrent infar ct). - XR CHEST 1 [id number] 08:07:[address] [facility] [place]: CARLOS MANUEL DOUGLASS : 1955 Sex: M FAX: Karen Corley MD [phone] [place]: St: ADM FAX: Larry Mock MD [phone] FAX: Dorothy Ventura NP [phone] FAX: Tom Toribio MD [phone] Name: CARLOS MANUEL DOUGLASS [facility] : 1955 Age/S: 68/M [address] [place] [address] Unit #: [id number] Loc: G.2202 [place] [address] Phys: Dorothy Ventura NP Acct: [id number] Dis Date: Status: ADM IN PHONE #: [phone] Exam Date: 07/16/2023505 FAX #: [phone] Reason: Cardiac Surgery Post Op EXAMS: CPT CODE: [id number] XR CHEST 1 V [id number] EXAM: -XR CHEST 1 V CLINICAL HISTORY: Cardiac Surgery Post Op TECHNIQUE: Single frontal view. COMPARISON: Chest radiograph 07/15/2023 LOCATION: C4 FINDINGS: Sternotomy wires and mediastinal surgical clips are present. Support lines and tubes are unchanged from prior. The trachea appears normal. The mediastinum and cardiac silhouette are within the upper limits for normal size. Signs of trace central pulmonary edema. Small left pleural effusion. Visualized soft tissues and osseous structures are grossly unremarkable. IMPRESSION: Trace central pulmonary edema and small left pleural effusion. Stable lines andtubes. at 0807 Reported and signed by: Aubrey Hughes D.O. 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[facility] POC ARTERIAL BLOOD [id number] 05:15:00 Test Item Value Reference Range Interpretation Comments POC ARTERIAL BLOOD GAS PH (test 7.461 7.35-7.45 H code = POCPHA) POC ARTERIAL BLOOD GAS PCO2 33.2 mmHg 35.0-45 L (test code = METAGB2Q) POC TCO2 ARTERIAL (test code = 24.4 POCTCO2) POC ARTERIAL BLOOD GAS PO2 (test 156.5 mmHg 80-100.0 H code = EIHPA6I) POC HCO3 ARTERIAL (test code = 23.4 MMOL/L 22.0-26.0 N [id number]) POC BASE EXCESS (test code = -0.1 MMOL/L -4.0-4.0 N POCBEA) POC O2 SATURATION (test code = 99.5 % 90-100 N POCO2S) FIO2 (test code = FIO2A) 40 % PaO2/FiO2 (test code = [id number]) 391.25 mm/Hg ABG DELIVERY (test code = CELIA) Adult Vent ABG VENT MODE (test code = CPAP/PS MODEA) ABG PEEP (test code = PEEPA) 5 cmH2O ABG PRESSURE SUPPORT (test code 10 cmH2O = PSABG) ABG TEMPERATURE (test code = 100.8 F TEMPA) POC LACTIC [id number] 05:15:00 Test Item Value Reference Range Interpretation Comments POC LACTIC ACID (test code = 3.5 mmol/l 0.9-1.7 H POCLAC) POC [id number] 05:15:00 Test Item Value Reference Range Interpretation Comments POC GLUCOSE (test code = POCGLU) 198 MG/DL 70-110 H POC ARTERIAL BLOOD [id number] 04:22:00 Test Item Value Reference Range Interpretation Comments POC ARTERIAL BLOOD GAS PH (test 7.507 7.35-7.45 HH code = POCPHA) POC ARTERIAL BLOOD GAS PCO2 29.8 mmHg 35.0-45 LL (test code = PPCQBT4M) POC TCO2 ARTERIAL (test code = 24.3 POCTCO2) POC ARTERIAL BLOOD GAS PO2 (test 133.1 mmHg 80-100.0 H code = VJVFM0O) POC HCO3 ARTERIAL (test code = 23.4 MMOL/L 22.0-26.0 N [id number]) POC BASE EXCESS (test code = 0.6 MMOL/L -4.0-4.0 N POCBEA) POC O2 SATURATION (test code = 99.2 % 90-100 N POCO2S) FIO2 (test code = FIO2A) 40 % PaO2/FiO2 (test code = PEU7CED2) 332.75 mm/Hg ABG DELIVERY (test code = CELIA) Adult Vent ABG VENT MODE (test code = AC MODEA) ABG VENT RESP RATE (test code = 12 /MIN RRA) ABG TIDAL VOLUME (test code = 450 ml TVA) ABG PEEP (test code = PEEPA) 5 cmH2O ABG TEMPERATURE (test code = 100.9 F TEMPA) ABG SITE (test code = SITEA) Art Line BASIC METABOLIC [id number] 04:22:00 Test Item Value Reference Range Interpretation Comments SODIUM (test code = NA/ABG) 141 mmol/L 134-147 N POTASSIUM (test code = K/ABG) 4.0 mmol/L 3.4-5.0 N CHLORIDE (test code = CL/ABG) 104 mmol/L 100-108 N CREATININE ABG (test code = 1.6 mg/dL 0.8-1.3 H CREAABG) POC IONIZED CALCIUM (test code = 1.22 MMOL/L 1.12-1.32 N POCCA) POC GLUCOSE (test code = POCGLU) 225 MG/DL 70-110 H HEMOGLOBIN [id number] 04:22:00 Test Item Value Reference Range Interpretation Comments HEMOGLOBIN ABG (test code = HGB/ABG) 8.9 G/DL 12.5-16.9 L [id number] 04:22:00 Test Item Value Reference Range Interpretation Comments HEMATOCRIT (test code = HCT/ABG) 26 % 37.5-50.7 L POC LACTIC [id number] 04:22:00 Test Item Value Reference Range Interpretation Comments POC LACTIC ACID (test code = 4.4 mmol/l 0.9-1.7 HH POCLAC) GLUCOSE [id number] 03:34:00 Test Item Value Reference Range Interpretation Comments GLUCOSE BEDSIDE (test 248 MG/DL 70-110 H [facility] by certified code = 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[facility] COMPREHENSIVE METABOLIC [id number] 03:13:00 Test Item Value Reference Range Interpretation Comments SODIUM (test code = 141 mEq/L 134-147 N NA) POTASSIUM (test code 3.9 mEq/L 3.4-5.0 = K) CHLORIDE (test code 106 mEq/L 100-108 N = CL) CARBON DIOXIDE (test 21 mEq/l 21-33 N code = CO2) ANION GAP (test code 18 0-20 N = GAP) GLUCOSE (test code = 295 mg/dL 77-141 H NOTE: N EW NORMAL RANGE GLU) BLOOD UREA NITROGEN 15 mg/dL 7-25 N NOTE: NE W NORMAL RANGE (test code = BUN) GLOMERULAR 46.4 80-90 L The Glomerular FILTRATION RATE Filtration R ate is a (test code = GFR) calculated parameterbased on serum Creatinine, pat ient age and sex. GFR va luesless than 60 mL/min/ 1.73 square meters a re indicative ofCh ronic Kidney Disease. Values less than 15 mL/min/1.73squa re meters indicate Kidney failure. The calculation for GFR is based on the CK D-EPI (2020) calculat ion. This formulais race indifferent and is the recommended for anabell for GFRby the Natio nal Kidney Foundati on for Adults.The GFR will not calculate if th e sex is unknown or if thepatient's ag e is <18 years. CREATININE (test 1.6 mg/dL 0.6-1.3 H code = CREAT) TOTAL PROTEIN (test 5.6 g/dL 6.4-8.2 L code = PROT) ALBUMIN (test code = 3.60 g/dL 3.4-5.0 N ALB) CALCIUM (test code = 9.3 mg/dL 8.0-10.5 N CA) BILIRUBIN TOTAL 1.80 mg/dL 0.0-1.0 H (test code = BILT) SGOT/AST (test code 48 IUnit/L 8-34 H NOTE: NE W NORMAL RANGE = AST) SGPT/ALT (test code 19 IUnit/L 10-49 NOTE: NE W NORMAL RANGE = ALT) ALKALINE PHOSPHATASE 68 IUnit/L 20-125 N TOTAL (test code = ALKP) COMMENTS: POD #1HEPATIC FUNCTION [id number] 03:13:00 Test Item Value Reference Range Interpretation Comments BILIRUBIN DIRECT (test 1.00 MG/DL 0.1-0.3 H NOTE: NEW NORMAL code = BILD) RANGE BILIRUBIN INDIRECT 0.80 MG/DL (test code = BILIND) COMMENTS: POD #[id number] 03:13:00 Test Item Value Reference Range Interpretation Comments MAGNESIUM (test code = 2.33 mg/dL 1.6-2.6 N NOTE: NEW NORMAL MAG) RANGE COMMENTS: POD #1CALCIUM [id number] 03:13:00 Test Item Value Reference Range Interpretation Comments CALCIUM IONIZED (test code = BOLIVAR) 1.12 MMOL/L 1.09-1.30 N COMMENTS: POD #1CBC W/AUTO [id number] 02:46:00 Test Item Value Reference Range Interpretation Comments WHITE BLOOD CELL (test code = 15.8 x10 3/uL 4.5-11.0 H WBC) RED BLOOD CELL (test code = 3.32 x10 6/uL 4.00-5.60 L RBC) HEMOGLOBIN (test code = HGB) 9.6 g/dL 12.5-16.9 L HEMATOCRIT (test code = HCT) 29.0 % 37.5-50.7 L MEAN CELL VOLUME (test code = 87.3 fL 81.0-99.0 N MCV) MEAN CELL HGB (test code = 28.9 pg 27.0-33.0 N MCH) MEAN CELL HGB CONCETRATION 33.1 g/dL 33.0-37.0 N (test code = MCHC) RED CELL DISTRIBUTION WIDTH CV 12.7 % 11.5-14.5 N (test code = RDW) RED CELL DISTRIBUTION WIDTH SD 40.8 fL 37.0-54.0 N (test code = RDW-SD) PLATELET COUNT (test code = 134 x10 3/uL 150-400 L PLT) MEAN PLATELET VOLUME (test 11.0 fL 7.0-9.0 H code = MPV) NEUTROPHIL % (test code = NT%) 90.2 % 56.0-77.0 H IMMATURE GRANULOCYTE % (test 0.6 % 0.0-2.0 N code = IG%) LYMPHOCYTE % (test code = LY%) 1.6 % 14.0-32.0 L MONOCYTE % (test code = MO%) 7.4 % 4.8-9.0 N EOSINOPHIL % (test code = EO%) 0.1 % 0.3-3.7 L BASOPHIL % (test code = BA%) 0.1 % 0.0-2.0 N NUCLEATED RBC % (test code = 0.0 % 0-0 N NRBC%) NEUTROPHIL # (test code = NT#) 14.24 x10 3/uL 2.0-7.6 H IMMATURE GRANULOCYTE # (test 0.09 x10 3/uL 0.00-0.03 H code = IG#) LYMPHOCYTE # (test code = LY#) 0.26 x10 3/uL 1.0-3.8 L MONOCYTE # (test code = MO#) 1.17 x10 3/uL 0.1-0.8 H EOSINOPHIL # (test code = EO#) 0.01 x10 3/uL 0.0-0.2 N BASOPHIL # (test code = BA#) 0.02 x10 3/uL 0.0-0.2 N NUCLEATED RBC # (test code = 0.00 x10 3/uL 0.0-0.1 N NRBC#) POC ARTERIAL BLOOD [id number] 02:30:00 Test Item Value Reference Range Interpretation Comments POC ARTERIAL BLOOD GAS PH (test 7.420 7.35-7.45 N code = POCPHA) POC ARTERIAL BLOOD GAS PCO2 31.9 mmHg 35.0-45 L (test code = XYDWRV4A) POC TCO2 ARTERIAL (test code = 21.4 POCTCO2) POC ARTERIAL BLOOD GAS PO2 (test 144.8 mmHg 80-100.0 H code = LTBPU5V) POC HCO3 ARTERIAL (test code = 20.5 MMOL/L 22.0-26.0 L IKRYHR1B) POC BASE EXCESS (test code = -3.7 MMOL/L -4.0-4.0 N POCBEA) POC O2 SATURATION (test code = 99.2 % 90-100 N POCO2S) FIO2 (test code = FIO2A) 50 % PaO2/FiO2 (test code = [id number]) 289.60 mm/Hg ABG DELIVERY (test code = CELIA) Adult Vent ABG VENT MODE (test code = AC MODEA) ABG VENT RESP RATE (test code = 12 /MIN RRA) ABG TIDAL VOLUME (test code = 450 ml TVA) ABG PEEP (test code = PEEPA) 5 cmH2O ABG TEMPERATURE (test code = 100.6 F TEMPA) ABG SITE (test code = SITEA) Art Line BASIC METABOLIC [id number] 02:30:00 Test Item Value Reference Range Interpretation Comments SODIUM (test code = NA/ABG) 141 mmol/L 134-147 N POTASSIUM (test code = K/ABG) 3.7 mmol/L 3.4-5.0 N CHLORIDE (test code = CL/ABG) 104 mmol/L 100-108 N CREATININE ABG (test code = 1.2 mg/dL 0.8-1.3 CREAABG) POC IONIZED CALCIUM (test code = 1.24 MMOL/L 1.12-1.32 N POCCA) POC GLUCOSE (test code = POCGLU) 285 MG/DL 70-110 H HEMOGLOBIN [id number] 02:30:00 Test Item Value Reference Range Interpretation Comments HEMOGLOBIN ABG (test code = HGB/ABG) 9.6 G/DL 12.5-16.9 L [id number] 02:30:00 Test Item Value Reference Range Interpretation Comments HEMATOCRIT (test code = HCT/ABG) 28 % 37.5-50.7 L POC LACTIC [id number] 02:30:00 Test Item Value Reference Range Interpretation Comments POC LACTIC ACID (test code = 6.9 mmol/l 0.9-1.7 HH POCLAC) POC ARTERIAL BLOOD [id number] 00:25:00 Test Item Value Reference Range Interpretation Comments POC ARTERIAL BLOOD GAS PH (test 7.351 7.35-7.45 N code = POCPHA) POC ARTERIAL BLOOD GAS PCO2 36.8 mmHg 35.0-45 N (test code = DAXFJG5C) POC TCO2 ARTERIAL (test code = 21.3 POCTCO2) POC ARTERIAL BLOOD GAS PO2 (test 110.6 mmHg 80-100.0 H code = WNGCW2B) POC HCO3 ARTERIAL (test code = 20.2 MMOL/L 22.0-26.0 L XZEVEN2V) POC BASE EXCESS (test code = -5.2 MMOL/L -4.0-4.0 L POCBEA) POC O2 SATURATION (test code = 98.0 % 90-100 N POCO2S) FIO2 (test code = FIO2A) 50 % PaO2/FiO2 (test code = [id number]) 221.20 mm/Hg ABG DELIVERY (test code = CELIA) Adult Vent ABG VENT MODE (test code = AC MODEA) ABG VENT RESP RATE (test code = 16 /MIN RRA) ABG TIDAL VOLUME (test code = 450 ml TVA) ABG PEEP (test code = PEEPA) 5 cmH2O ABG TEMPERATURE (test code = 99.7 F TEMPA) ABG SITE (test code = SITEA) Art Line BASIC METABOLIC [id number] 00:25:00 Test Item Value Reference Range Interpretation Comments SODIUM (test code = NA/ABG) 142 mmol/L 134-147 N POTASSIUM (test code = K/ABG) 3.3 mmol/L 3.4-5.0 L CHLORIDE (test code = CL/ABG) 103 mmol/L 100-108 N CREATININE ABG (test code = 1.7 mg/dL 0.8-1.3 H CREAABG) POC IONIZED CALCIUM (test code = 1.26 MMOL/L 1.12-1.32 N POCCA) POC GLUCOSE (test code = POCGLU) 312 MG/DL 70-110 H HEMOGLOBIN [id number] 00:25:00 Test Item Value Reference Range Interpretation Comments HEMOGLOBIN ABG (test code = HGB/ABG) 9.7 G/DL 12.5-16.9 L [id number] 00:25:00 Test Item Value Reference Range Interpretation Comments HEMATOCRIT (test code = HCT/ABG) 28 % 37.5-50.7 L POC LACTIC [id number] 00:25:00 Test Item Value Reference Range Interpretation Comments POC LACTIC ACID (test code = 9.4 mmol/l 0.9-1.7 HH POCLAC) POC LACTIC [id number] 23:02:00 Test Item Value Reference Range Interpretation Comments POC LACTIC ACID (test code = 10.7 mmol/l 0.9-1.7 HH POCLAC) POC VENOUS BLOOD [id number] 23:02:00 Test Item Value Reference Range Interpretation Comments POC VENOUS BLOOD GAS PH (test 7.321 7.33-7.45 L code = POCPHV) POC VENOUS BLOOD GAS PCO2 (test 42.7 mmHg 43-47 L code = YFADDF0F) POC VENOUS BLOOD GAS PO2 (test 39.0 mmHG 10-50 N code = EEFSD2C) POC TCO2 VENOUS (test code = 23.4 FUBOSA0A) POC HCO3 VENOUS (test code = 22.0 MMOL/L 22-27 N EAECWL9F) POC BASE EXCESS VENOUS (test code -4.0 MMOL/L -4.0-4.0 N = POCBEV) POC O2 SATURATION VENOUS (test 69.0 % 60-80 N code = USMT9TI) VENOUS BLOOD GAS FIO2 (test code 50 % = FIO2V) VENOUS BLOOD GAS DELIVERY (test Adult Vent code = DELV) VBG VENT MODE (test code = MODEV) AC VENOUS BLOOD GAS PEEP (test code 5 cmH2O = PEEPV) VENOUS BLOOD GAS TEMP (test code 98.6 F = TEMPV) VENOUS BLOOD GAS SITE (test code Rafat Deangelo = SITEV) PROTHROMBIN [id number] 22:21:00 Test Item Value Reference Range Interpretation Comments PROTHROMBIN TIME 17.2 SECONDS 9.3-12.9 H PATIENT (test code = PTP) INTERNATIONAL NORMAL 1.6 0.8-1.2 H TARGET INR BY RATIO (test code = INDICATIO N Indication INR) INR1. Prophylax is of venous thrombos is 2.0 - 3.0 (orthoped ic surgery), Proph ylaxis of venous throm bosis (other than hig h-risk surgery), Treat ment of Deep Vein Thrombosis/Pulm onary Embolism, Preve ntion of systemic emb olism - Tissue heart va lves, Acute Myocardia l Infarction (to prevent systemic emboli sm), Valvular heart disease, Atrial Fibrillation, Bileaflet mecha nical valve in aortic position.2. Mec hanical prosthetic valv es (high risk), 2. 5 - 3.5 Presence of Lup us Anticoagulant o r Antiphospholipi d Antibodies, Pre vention of systemic emb olism - Acute Myocardia l Infarction (to prevent recurrent infar ct). THROMBOPLASTIN TIME [id number] 22:21:00 Test Item Value Reference Range Interpretation Comments THROMBOPLASTIN TIME 26.4 Seconds 25.0-39.5 N Therape utic Range: PARTIAL (test code = 50.4 - 88.3 Seconds PTT) Effective 01/24/2019 [id number] 22:21:00 Test Item Value Reference Range Interpretation Comments FIBRINOGEN (test 236 MG/DL 160-450 N Excess admi nistration of code = FIB) anticoagulants and/or FibrinDegradati on Products may af fect Fibrinogen valu e. CBC W/AUTO [id number] 22:08:00 Test Item Value Reference Range Interpretation Comments WHITE BLOOD CELL (test code = 22.6 x10 3/uL 4.5-11.0 H WBC) RED BLOOD CELL (test code = 3.72 x10 6/uL 4.00-5.60 L RBC) HEMOGLOBIN (test code = HGB) 10.9 g/dL 12.5-16.9 L HEMATOCRIT (test code = HCT) 33.1 % 37.5-50.7 L MEAN CELL VOLUME (test code = 89.0 fL 81.0-99.0 N MCV) MEAN CELL HGB (test code = 29.3 pg 27.0-33.0 N MCH) MEAN CELL HGB CONCETRATION 32.9 g/dL 33.0-37.0 L (test code = MCHC) RED CELL DISTRIBUTION WIDTH CV 12.7 % 11.5-14.5 N (test code = RDW) RED CELL DISTRIBUTION WIDTH SD 41.6 fL 37.0-54.0 N (test code = RDW-SD) PLATELET COUNT (test code = 146 x10 3/uL 150-400 L PLT) MEAN PLATELET VOLUME (test 10.9 fL 7.0-9.0 H code = MPV) NEUTROPHIL % (test code = NT%) 83.9 % 56.0-77.0 H IMMATURE GRANULOCYTE % (test 0.5 % 0.0-2.0 N code = IG%) LYMPHOCYTE % (test code = LY%) 5.3 % 14.0-32.0 L MONOCYTE % (test code = MO%) 9.4 % 4.8-9.0 H EOSINOPHIL % (test code = EO%) 0.6 % 0.3-3.7 N BASOPHIL % (test code = BA%) 0.3 % 0.0-2.0 N NUCLEATED RBC % (test code = 0.0 % 0-0 N NRBC%) NEUTROPHIL # (test code = NT#) 18.99 x10 3/uL 2.0-7.6 H IMMATURE GRANULOCYTE # (test 0.12 x10 3/uL 0.00-0.03 H code = IG#) LYMPHOCYTE # (test code = LY#) 1.19 x10 3/uL 1.0-3.8 N MONOCYTE # (test code = MO#) 2.13 x10 3/uL 0.1-0.8 H EOSINOPHIL # (test code = EO#) 0.13 x10 3/uL 0.0-0.2 N BASOPHIL # (test code = BA#) 0.07 x10 3/uL 0.0-0.2 N NUCLEATED RBC # (test code = 0.00 x10 3/uL 0.0-0.1 N NRBC#) MANUAL DIFF REQUIRED (test NO code = MDIFF) POC ARTERIAL BLOOD [id number] 22:07:00 Test Item Value Reference Range Interpretation Comments POC ARTERIAL BLOOD GAS PH (test 7.299 7.35-7.45 LL code = POCPHA) POC ARTERIAL BLOOD GAS PCO2 34.2 mmHg 35.0-45 L (test code = YJVIIN0U) POC TCO2 ARTERIAL (test code = 17.9 POCTCO2) POC ARTERIAL BLOOD GAS PO2 (test 91.4 mmHg 80-100.0 N code = WCFNU3M) POC HCO3 ARTERIAL (test code = 16.8 MMOL/L 22.0-26.0 LL THLJQP0I) POC BASE EXCESS (test code = -9.7 MMOL/L -4.0-4.0 L POCBEA) POC O2 SATURATION (test code = 96.4 % 90-100 N POCO2S) FIO2 (test code = FIO2A) 50 % PaO2/FiO2 (test code = PDW4PHF6) 182.80 mm/Hg ABG DELIVERY (test code = CELIA) Adult Vent ABG VENT MODE (test code = AC MODEA) ABG TIDAL VOLUME (test code = 450 ml TVA) ABG PEEP (test code = PEEPA) 5 cmH2O ABG TEMPERATURE (test code = 98 F TEMPA) ABG SITE (test code = SITEA) Art Line BASIC METABOLIC [id number] 22:07:00 Test Item Value Reference Range Interpretation Comments SODIUM (test code = NA/ABG) 141 mmol/L 134-147 N POTASSIUM (test code = K/ABG) 2.9 mmol/L 3.4-5.0 LL CHLORIDE (test code = CL/ABG) 104 mmol/L 100-108 N CREATININE ABG (test code = 1.3 mg/dL 0.8-1.3 N CREAABG) POC IONIZED CALCIUM (test code = 1.35 MMOL/L 1.12-1.32 H POCCA) POC GLUCOSE (test code = POCGLU) 283 MG/DL 70-110 H HEMOGLOBIN [id number] 22:07:00 Test Item Value Reference Range Interpretation Comments HEMOGLOBIN ABG (test code = 11.6 G/DL 12.5-16.9 L HGB/ABG) [id number] 22:07:00 Test Item Value Reference Range Interpretation Comments HEMATOCRIT (test code = HCT/ABG) 34 % 37.5-50.7 L POC LACTIC [id number] 22:07:00 Test Item Value Reference Range Interpretation Comments POC LACTIC ACID (test code = 9.6 mmol/l 0.9-1.7 HH POCLAC) POC ARTERIAL BLOOD [id number] 21:46:00 Test Item Value Reference Range Interpretation Comments POC ARTERIAL BLOOD GAS PH (test 7.293 7.35-7.45 LL code = POCPHA) POC ARTERIAL BLOOD GAS PCO2 (test 35.4 mmHg 35.0-45 N code = ONUFYV3M) POC TCO2 ARTERIAL (test code = 18.4 POCTCO2) POC ARTERIAL BLOOD GAS PO2 (test 88.1 mmHg 80-100.0 N code = CRZDO9M) POC HCO3 ARTERIAL (test code = 17.3 MMOL/L 22.0-26.0 LL BCTUTN8B) POC BASE EXCESS (test code = -9.4 MMOL/L -4.0-4.0 L POCBEA) POC O2 SATURATION (test code = 96.1 % 90-100 N POCO2S) ABG DELIVERY (test code = CELIA) Adult Vent ABG VENT MODE (test code = MODEA) AC ABG PEEP (test code = PEEPA) 5 cmH2O ABG TEMPERATURE (test code = 97.3 F TEMPA) ABG SITE (test code = SITEA) Art Line BASIC METABOLIC [id number] 21:46:00 Test Item Value Reference Range Interpretation Comments SODIUM (test code = NA/ABG) 141 mmol/L 134-147 N POTASSIUM (test code = K/ABG) 3.0 mmol/L 3.4-5.0 L CHLORIDE (test code = CL/ABG) 104 mmol/L 100-108 N CREATININE ABG (test code = 1.2 mg/dL 0.8-1.3 CREAABG) POC IONIZED CALCIUM (test code = 1.34 MMOL/L 1.12-1.32 H POCCA) POC GLUCOSE (test code = POCGLU) 278 MG/DL 70-110 H HEMOGLOBIN [id number] 21:46:00 Test Item Value Reference Range Interpretation Comments HEMOGLOBIN ABG (test code = 11.7 G/DL 12.5-16.9 L HGB/ABG) [id number] 21:46:00 Test Item Value Reference Range Interpretation Comments HEMATOCRIT (test code = HCT/ABG) 34 % 37.5-50.7 L POC LACTIC [id number] 21:46:00 Test Item Value Reference Range Interpretation Comments POC LACTIC ACID (test code = 9.1 mmol/l 0.9-1.7 HH POCLAC) GLUCOSE [id number] 21:23:00 Test Item Value Reference Range Interpretation Comments GLUCOSE BEDSIDE (test 254 MG/DL 70-110 H Perfor med by certified code = 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 [place] [place] MARTIN RODRIGUEZName: CARLOS MANUEL DOUGLASS : 1955 Sex: M FAX: Karen Corley MD [phone] [place]: St: ADM FAX: Larry Mock MD [phone] FAX: Dorothy Ventura NP [phone] FAX: Tom Toribio MD [phone] Name: CARLOS MANUEL DOUGLASS [facility] Martin Rodriguez : 1955 Age/S: 68/M [address] [place] [address] Unit #: [id number] Loc: G.2202 [place] [address] Phys: Dorothy Ventura NP Acct: [id number] Dis Date: Status: ADM IN PHONE #: [phone] Exam Date: 07/15/20231914 FAX #: [phone] Reason: Cardiac Surgery Post Op EXAMS: CPT CODE: [id number] XR CHEST 1 V [id number] LOCATION:Q15 HISTORY: 68-year-old male, status post CABG procedure. COMMENT: A frontal chest radiograph was obtained at the bedside at 7:15 p.m., and compared to a prior study obtained earlier today at 4:05 a.m. FINDINGS: Since prior study the patient has undergone a CABG procedure. The cardiac silhouette is unremarkable. Mild prominence of central vasculature is seen. Lung periphery is clear. ET tube is above the esequiel. Mediastinal and left chest drains are seen. A right IJ Polaris-Deangelo catheter is seen at the origin of the right main pulmonary artery. IMPRESSION: Satisfactory postoperative appearance of the chest. at 2007 Reported and signed by: Jatin Caballero M.D. CC: Karen Higginbotham MD; Larry Chatman MD; Dorothy Ventura NP; Ilya TOMAS Technologist: RT Srikanth(R) Trnscrd Date/Time/By: 07/15/2023 (2007) : By: [email or web address] Orig Print D/T: S: 07/15/2023 (2011) PAGE 1 Signed ReportPROTHROMBIN [id number] 20:00:00 Test Item Value Reference Range Interpretation Comments PROTHROMBIN TIME 18.8 SECONDS 9.3-12.9 H PATIENT (test code = PTP) INTERNATIONAL NORMAL 1.7 0.8-1.2 H TARGET INR BY RATIO (test code = INDICATIO N Indication INR) INR1. Prophylax is of venous thrombos is 2.0 - 3.0 (orthoped ic surgery), Proph ylaxis of venous throm bosis (other than hig h-risk surgery), Treat ment of Deep Vein Thrombosis/Pulm onary Embolism, Preve ntion of systemic emb olism - Tissue heart va lves, Acute Myocardia l Infarction (to prevent systemic emboli sm), Valvular heart disease, Atrial Fibrillation, Bileaflet mecha nical valve in aortic position.2. Mec hanical prosthetic valv es (high risk), 2. 5 - 3.5 Presence of Lup us Anticoagulant o r Antiphospholipi d Antibodies, Pre vention of systemic emb olism - Acute Myocardia l Infarction (to prevent recurrent infar ct). THROMBOPLASTIN TIME [id number] 20:00:00 Test Item Value Reference Range Interpretation Comments THROMBOPLASTIN TIME 27.0 Seconds 25.0-39.5 N Therape utic Range: PARTIAL (test code = 50.4 - 88.3 Seconds PTT) Effective 01/24/2019 [id number] 19:56:00 Test Item Value Reference Range Interpretation Comments HEMATOCRIT (test code = HCT/ABG) 34 % 37.5-50.7 L POC LACTIC [id number] 19:56:00 Test Item Value Reference Range Interpretation Comments POC LACTIC ACID (test code = 4.5 mmol/l 0.9-1.7 HH POCLAC) POC ARTERIAL BLOOD [id number] 19:56:00 Test Item Value Reference Range Interpretation Comments POC ARTERIAL BLOOD GAS PH (test 7.381 7.35-7.45 N code = POCPHA) POC ARTERIAL BLOOD GAS PCO2 34.8 mmHg 35.0-45 L (test code = SALOAO4A) POC TCO2 ARTERIAL (test code = 22.1 POCTCO2) POC ARTERIAL BLOOD GAS PO2 (test 112.3 mmHg 80-100.0 H code = DJKBG1Q) POC HCO3 ARTERIAL (test code = 20.9 MMOL/L 22.0-26.0 L [id number]) POC BASE EXCESS (test code = -4.5 MMOL/L -4.0-4.0 L POCBEA) POC O2 SATURATION (test code = 98.6 % 90-100 N POCO2S) FIO2 (test code = FIO2A) 50 % PaO2/FiO2 (test code = [id number]) 224.60 mm/Hg ABG DELIVERY (test code = CELIA) Adult Vent ABG VENT MODE (test code = AC MODEA) ABG VENT RESP RATE (test code = 16 /MIN RRA) ABG TIDAL VOLUME (test code = 450 ml TVA) ABG PEEP (test code = PEEPA) 5 cmH2O ABG TEMPERATURE (test code = 96.1 F TEMPA) ABG SITE (test code = SITEA) Art Line SHWETA'S TEST (test code = N/A ALLENS) BASIC METABOLIC [id number] 19:56:00 Test Item Value Reference Range Interpretation Comments SODIUM (test code = NA/ABG) 134 mmol/L 134-147 N POTASSIUM (test code = K/ABG) 2.4 mmol/L 3.4-5.0 LL CHLORIDE (test code = CL/ABG) 121 mmol/L 100-108 H CREATININE ABG (test code = 0.9 mg/dL 0.8-1.3 N CREAABG) POC IONIZED CALCIUM (test code = 1.06 MMOL/L 1.12-1.32 L POCCA) POC GLUCOSE (test code = POCGLU) 225 MG/DL 70-110 H HEMOGLOBIN [id number] 19:56:00 Test Item Value Reference Range Interpretation Comments HEMOGLOBIN ABG (test code = 11.4 G/DL 12.5-16.9 L HGB/ABG) BASIC METABOLIC [id number] 19:51:00 Test Item Value Reference Range Interpretation Comments SODIUM (test code = 140 mEq/L 134-147 N NA) POTASSIUM (test code 2.6 mEq/L 3.4-5.0 LL Critica l result called = K) to NISHA HEATHER [employer].JSC2 at 1 951 07/15/23Nurse r ead back resut and tech confirmed it's correct? Y CHLORIDE (test code 106 mEq/L 100-108 N = CL) CARBON DIOXIDE (test 20 mEq/l 21-33 L code = CO2) ANION GAP (test code 17 0-20 N = GAP) GLUCOSE (test code = 217 mg/dL 77-141 H NOTE: N EW NORMAL RANGE GLU) BLOOD UREA NITROGEN 12 mg/dL 7-25 N NOTE: NE W NORMAL RANGE (test code = BUN) GLOMERULAR 65.5 80-90 L The Glomerular FILTRATION RATE Filtration R ate is a (test code = GFR) calculated parameterbased on serum Creatinine, pat ient age and sex. GFR va luesless than 60 mL/min/ 1.73 square meters a re indicative ofCh ronic Kidney Disease. Values less than 15 mL/min/1.73squa re meters indicate Kidney failure. The calculation forGFR is based on the CKD-EPI (2020) calculat ion. This formulais race indifferent and is the recommended for anabell for GFRby the [facility] on for Adults.The GFR will not calculate if th e sex is unknown or if thepatient's ag e is <18 years. CREATININE (test 1.2 mg/dL 0.6-1.3 N code = CREAT) CALCIUM (test code = 8.2 mg/dL 8.0-10.5 N CA) COMMENTS: On arrivalComment: On [id number] 19:51:00 Test Item Value Reference Range Interpretation Comments MAGNESIUM (test code = 2.33 mg/dL 1.6-2.6 NOTE: NEW NORMAL MAG) RANGE COMMENTS: On arrivalComment: On arrivalCBC W/AUTO [id number] 19:37:00 Test Item Value Reference Range Interpretation Comments WHITE BLOOD CELL (test code = 25.4 x10 3/uL 4.5-11.0 H WBC) RED BLOOD CELL (test code = 3.82 x10 6/uL 4.00-5.60 L RBC) HEMOGLOBIN (test code = HGB) 11.1 g/dL 12.5-16.9 L HEMATOCRIT (test code = HCT) 33.4 % 37.5-50.7 L MEAN CELL VOLUME (test code = 87.4 fL 81.0-99.0 N MCV) MEAN CELL HGB (test code = 29.1 pg 27.0-33.0 N MCH) MEAN CELL HGB CONCETRATION 33.2 g/dL 33.0-37.0 N (test code = MCHC) RED CELL DISTRIBUTION WIDTH CV 12.7 % 11.5-14.5 N (test code = RDW) RED CELL DISTRIBUTION WIDTH SD 40.7 fL 37.0-54.0 N (test code = RDW-SD) PLATELET COUNT (test code = 145 x10 3/uL 150-400 L PLT) MEAN PLATELET VOLUME (test 11.1 fL 7.0-9.0 H code = MPV) NEUTROPHIL % (test code = NT%) 84.8 % 56.0-77.0 H IMMATURE GRANULOCYTE % (test 0.9 % 0.0-2.0 N code = IG%) LYMPHOCYTE % (test code = LY%) 8.8 % 14.0-32.0 L MONOCYTE % (test code = MO%) 3.1 % 4.8-9.0 L EOSINOPHIL % (test code = EO%) 2.0 % 0.3-3.7 N BASOPHIL % (test code = BA%) 0.4 % 0.0-2.0 N NUCLEATED RBC % (test code = 0.0 % 0-0 N NRBC%) NEUTROPHIL # (test code = NT#) 21.54 x10 3/uL 2.0-7.6 H IMMATURE GRANULOCYTE # (test 0.22 x10 3/uL 0.00-0.03 H code = IG#) LYMPHOCYTE # (test code = LY#) 2.23 x10 3/uL 1.0-3.8 N MONOCYTE # (test code = MO#) 0.78 x10 3/uL 0.1-0.8 N EOSINOPHIL # (test code = EO#) 0.50 x10 3/uL 0.0-0.2 H BASOPHIL # (test code = BA#) 0.10 x10 3/uL 0.0-0.2 N NUCLEATED RBC # (test code = 0.00 x10 3/uL 0.0-0.1 N NRBC#) MANUAL DIFF REQUIRED (test NO code = MDIFF) COMMENTS: On arrivalGLUCOSE [id number] 19:33:00 Test Item Value Reference Range Interpretation Comments GLUCOSE BEDSIDE (test 218 MG/DL 70-110 H Perfor med by certified code = 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[facility] [id number] 18:47:00 Test Item Value Reference Range Interpretation Comments ACT-ISTAT (test code 131 SEC 74-137 N Perform ed by certified = ACTI) 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[facility] POC ARTERIAL BLOOD [id number] 18:46:00 Test Item Value Reference Range Interpretation Comments POC ARTERIAL BLOOD GAS PH (test 7.283 7.35-7.45 LL code = POCPHA) POC ARTERIAL BLOOD GAS PCO2 (test 37.5 mmHg 35.0-45 N code = MITZIL2X) POC TCO2 ARTERIAL (test code = 18.9 POCTCO2) POC ARTERIAL BLOOD GAS PO2 (test 431.5 mmHg 80-100.0 HH code = DQWJP3Y) POC HCO3 ARTERIAL (test code = 17.8 MMOL/L 22.0-26.0 LL [id number]) POC BASE EXCESS (test code = -8.2 MMOL/L -4.0-4.0 L POCBEA) POC O2 SATURATION (test code = 100.0 % 90-100 N POCO2S) BASIC METABOLIC [id number] 18:46:00 Test Item Value Reference Range Interpretation Comments SODIUM (test code = NA/ABG) 138 mmol/L 134-147 N POTASSIUM (test code = K/ABG) 2.6 mmol/L 3.4-5.0 LL CHLORIDE (test code = CL/ABG) 107 mmol/L 100-108 N CREATININE ABG (test code = 0.8 mg/dL 0.8-1.3 N CREAABG) POC IONIZED CALCIUM (test code = 1.19 MMOL/L 1.12-1.32 N POCCA) POC GLUCOSE (test code = POCGLU) 193 MG/DL 70-110 H HEMOGLOBIN [id number] 18:46:00 Test Item Value Reference Range Interpretation Comments HEMOGLOBIN ABG (test code = 10.9 G/DL 12.5-16.9 L HGB/ABG) [id number] 18:46:00 Test Item Value Reference Range Interpretation Comments HEMATOCRIT (test code = HCT/ABG) 32 % 37.5-50.7 L POC LACTIC [id number] 18:46:00 Test Item Value Reference Range Interpretation Comments POC LACTIC ACID (test code = 3.5 mmol/l 0.9-1.7 H POCLAC) [id number] 17:46:00 Test Item Value Reference Range Interpretation Comments ACT-ISTAT (test code 522 SEC 74-137 H Perform ed by certified = ACTI) 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[facility] POC ARTERIAL BLOOD [id number] 17:36:00 Test Item Value Reference Range Interpretation Comments POC ARTERIAL BLOOD GAS PH (test 7.404 7.35-7.45 N code = POCPHA) POC ARTERIAL BLOOD GAS PCO2 (test 36.8 mmHg 35.0-45 N code = [id number]) POC TCO2 ARTERIAL (test code = 24.1 POCTCO2) POC ARTERIAL BLOOD GAS PO2 (test 376.6 mmHg 80-100.0 HH code = FOCKT4A) POC HCO3 ARTERIAL (test code = 23.0 MMOL/L 22.0-26.0 N [id number]) POC BASE EXCESS (test code = -1.4 MMOL/L -4.0-4.0 N POCBEA) POC O2 SATURATION (test code = 100.0 % 90-100 N POCO2S) BASIC METABOLIC [id number] 17:36:00 Test Item Value Reference Range Interpretation Comments SODIUM (test code = NA/ABG) 134 mmol/L 134-147 N POTASSIUM (test code = K/ABG) 5.2 mmol/L 3.4-5.0 H CHLORIDE (test code = CL/ABG) 104 mmol/L 100-108 N CREATININE ABG (test code = 0.8 mg/dL 0.8-1.3 N CREAABG) POC IONIZED CALCIUM (test code = 1.05 MMOL/L 1.12-1.32 L POCCA) POC GLUCOSE (test code = POCGLU) 166 MG/DL 70-110 H HEMOGLOBIN [id number] 17:36:00 Test Item Value Reference Range Interpretation Comments HEMOGLOBIN ABG (test code = 10.3 G/DL 12.5-16.9 L HGB/ABG) [id number] 17:36:00 Test Item Value Reference Range Interpretation Comments HEMATOCRIT (test code = HCT/ABG) 30 % 37.5-50.7 L POC LACTIC [id number] 17:36:00 Test Item Value Reference Range Interpretation Comments POC LACTIC ACID (test code = 1.3 mmol/l 0.9-1.7 N POCLAC) [id number] 17:14:00 Test Item Value Reference Range Interpretation Comments ACT-ISTAT (test code 720 SEC 74-137 H Perform ed by certified = ACTI) 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[facility] 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 ARTERIAL BLOOD [id number] 17:01:00 Test Item Value Reference Range Interpretation Comments POC ARTERIAL BLOOD GAS PH (test 7.399 7.35-7.45 N code = POCPHA) POC ARTERIAL BLOOD GAS PCO2 (test 35.2 mmHg 35.0-45 N code = FNNJQG6J) POC TCO2 ARTERIAL (test code = 22.8 POCTCO2) POC ARTERIAL BLOOD GAS PO2 (test 512.2 mmHg 80-100.0 HH code = WMLQY4U) POC HCO3 ARTERIAL (test code = 21.7 MMOL/L 22.0-26.0 L OEGICS2Y) POC BASE EXCESS (test code = -2.6 MMOL/L -4.0-4.0 N POCBEA) POC O2 SATURATION (test code = 100.0 % 90-100 N POCO2S) BASIC METABOLIC [id number] 17:01:00 Test Item Value Reference Range Interpretation Comments SODIUM (test code = NA/ABG) 134 mmol/L 134-147 N POTASSIUM (test code = K/ABG) 4.4 mmol/L 3.4-5.0 N CHLORIDE (test code = CL/ABG) 103 mmol/L 100-108 N CREATININE ABG (test code = 0.8 mg/dL 0.8-1.3 N CREAABG) POC IONIZED CALCIUM (test code = 1.04 MMOL/L 1.12-1.32 L POCCA) POC GLUCOSE (test code = POCGLU) 140 MG/DL 70-110 H HEMOGLOBIN [id number] 17:01:00 Test Item Value Reference Range Interpretation Comments HEMOGLOBIN ABG (test code = 10.4 G/DL 12.5-16.9 L HGB/ABG) [id number] 17:01:00 Test Item Value Reference Range Interpretation Comments HEMATOCRIT (test code = HCT/ABG) 30 % 37.5-50.7 L POC LACTIC [id number] 17:01:00 Test Item Value Reference Range Interpretation Comments POC LACTIC ACID (test code = < 0.3 mmol/l 0.9-1.7 L POCLAC) [id number] 16:40:00 Test Item Value Reference Range Interpretation Comments ACT-ISTAT (test code 660 SEC 74-137 H Perform ed by certified = ACTI) 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[facility] POC ARTERIAL BLOOD [id number] 16:27:00 Test Item Value Reference Range Interpretation Comments POC ARTERIAL BLOOD GAS PH (test 7.328 7.35-7.45 L code = POCPHA) POC ARTERIAL BLOOD GAS PCO2 (test 36.9 mmHg 35.0-45 N code = YYKIPT2Z) POC TCO2 ARTERIAL (test code = 20.5 POCTCO2) POC ARTERIAL BLOOD GAS PO2 (test 537.4 mmHg 80-100.0 HH code = TSMOG2J) POC HCO3 ARTERIAL (test code = 19.4 MMOL/L 22.0-26.0 L MKTFHV6G) POC BASE EXCESS (test code = -6.0 MMOL/L -4.0-4.0 L POCBEA) POC O2 SATURATION (test code = 100.0 % 90-100 N POCO2S) BASIC METABOLIC [id number] 16:27:00 Test Item Value Reference Range Interpretation Comments SODIUM (test code = NA/ABG) 136 mmol/L 134-147 N POTASSIUM (test code = K/ABG) 3.6 mmol/L 3.4-5.0 N CHLORIDE (test code = CL/ABG) 106 mmol/L 100-108 N CREATININE ABG (test code = 0.9 mg/dL 0.8-1.3 N CREAABG) POC IONIZED CALCIUM (test code = 1.08 MMOL/L 1.12-1.32 L POCCA) POC GLUCOSE (test code = POCGLU) 133 MG/DL 70-110 H HEMOGLOBIN [id number] 16:27:00 Test Item Value Reference Range Interpretation Comments HEMOGLOBIN ABG (test code = 13.2 G/DL 12.5-16.9 N HGB/ABG) [id number] 16:27:00 Test Item Value Reference Range Interpretation Comments HEMATOCRIT (test code = HCT/ABG) 39 % 37.5-50.7 N POC LACTIC [id number] 16:27:00 Test Item Value Reference Range Interpretation Comments POC LACTIC ACID (test code = < 0.3 mmol/l 0.9-1.7 L POCLAC) [id number] 14:58:00 Test Item Value Reference Range Interpretation Comments ACT-ISTAT (test code 149 SEC 74-137 H 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 ed by certified = 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) 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[facility] POC ARTERIAL BLOOD [id number] 14:53:00 Test Item Value Reference Range Interpretation Comments POC ARTERIAL BLOOD GAS PH (test 7.434 7.35-7.45 N code = POCPHA) POC ARTERIAL BLOOD GAS PCO2 (test 32.9 mmHg 35.0-45 L code = INUZRS2P) POC TCO2 ARTERIAL (test code = 23.1 POCTCO2) POC ARTERIAL BLOOD GAS PO2 (test 114.6 mmHg 80-100.0 H code = DGJLH7S) POC HCO3 ARTERIAL (test code = 22.1 MMOL/L 22.0-26.0 N YPXQWD6T) POC BASE EXCESS (test code = -1.4 MMOL/L -4.0-4.0 N POCBEA) POC O2 SATURATION (test code = 98.7 % 90-100 N POCO2S) BASIC METABOLIC [id number] 14:53:00 Test Item Value Reference Range Interpretation Comments SODIUM (test code = NA/ABG) 136 mmol/L 134-147 N POTASSIUM (test code = K/ABG) 3.9 mmol/L 3.4-5.0 N CHLORIDE (test code = CL/ABG) 104 mmol/L 100-108 N CREATININE ABG (test code = 0.9 mg/dL 0.8-1.3 N CREAABG) POC IONIZED CALCIUM (test code = 1.18 MMOL/L 1.12-1.32 N POCCA) POC GLUCOSE (test code = POCGLU) 95 MG/DL 70-110 N HEMOGLOBIN [id number] 14:53:00 Test Item Value Reference Range Interpretation Comments HEMOGLOBIN ABG (test code = 14.9 G/DL 12.5-16.9 N HGB/ABG) [id number] 14:53:00 Test Item Value Reference Range Interpretation Comments HEMATOCRIT (test code = HCT/ABG) 44 % 37.5-50.7 N POC LACTIC [id number] 14:53:00 Test Item Value Reference Range Interpretation Comments POC LACTIC ACID (test code = 0.9 mmol/l 0.9-1.7 N POCLAC) CALCIUM [id number] 13:39:00 Test Item Value Reference Range Interpretation Comments CALCIUM IONIZED (test code = BOLIVAR) 1.11 MMOL/L 1.09-1.30 N COMPREHENSIVE METABOLIC [id number] 12:57:00 Test Item Value Reference Range Interpretation Comments SODIUM (test code = 133 mEq/L 134-147 L NA) POTASSIUM (test code 3.8 mEq/L 3.4-5.0 N = K) CHLORIDE (test code 104 mEq/L 100-108 N = CL) CARBON DIOXIDE (test 21 mEq/l 21-33 N code = CO2) ANION GAP (test code 11 0-20 N = GAP) GLUCOSE (test code = 211 mg/dL 77-141 H NOTE: N EW NORMAL RANGE GLU) BLOOD UREA NITROGEN 10 mg/dL 7-25 N NOTE: NE W NORMAL RANGE (test code = BUN) GLOMERULAR 72.7 80-90 L The Glomerular FILTRATION RATE Filtration R ate is a (test code = GFR) calculated parameterbased on serum Creatinin e, patient age and sex. GFR valuesless than 60 mL/min/1.73 squ are meters are sammi cative ofChronic Kidne y Disease. Values less than 15 mL/min/1.73squa re meters indicate Kidney failure. The calculation for GFR is based on the CK D-EPI (2020) calculat ion. This formulais race indifferent and is the recommended for anabell for GFRby the [facility] on for Adults.The GFR will not calculate i f the sex is unknown or if thepatient's ag e is <18 years. CREATININE (test 1.1 mg/dL 0.6-1.3 N code = CREAT) TOTAL PROTEIN (test 6.7 g/dL 6.4-8.2 N code = PROT) ALBUMIN (test code = 3.60 g/dL 3.4-5.0 N ALB) CALCIUM (test code = 8.8 mg/dL 8.0-10.5 N CA) BILIRUBIN TOTAL 1.30 mg/dL 0.0-1.0 H (test code = BILT) SGOT/AST (test code 19 IUnit/L 8-34 N NOTE: NE W NORMAL RANGE = AST) SGPT/ALT (test code 10 IUnit/L 10-49 N NOTE: NE W NORMAL RANGE = ALT) ALKALINE PHOSPHATASE 129 IUnit/L 20-125 H TOTAL (test code = ALKP) [id number] 12:57:00 Test Item Value Reference Range Interpretation Comments MAGNESIUM (test code = 1.75 mg/dL 1.6-2.6 N NOTE: NEW NORMAL MAG) RANGE THYROID STIMULATING [id number] 12:57:00 Test Item Value Reference Range Interpretation Comments THYROID STIMULATING 1.57 0.42-5.47 N Results in HORMONE (test code = TSH) mi lli-International Units/mL - MRA NECK W/O [id number] 11:27:00 [facility] : 1955 Sex: M FAX: Karen Corley MD [phone] [place]: St: [facility] FAX: Larry Mock MD [phone] FAX: Sawyer Rooney [phone] FAX: Tom Toribio MD [phone] Name: CARLOS MANUEL DOUGLASS [facility] : 1955 Age/S: 68/M [address] [place] [address] Unit #: [id number] Loc: [address] [address] Phys: Sawyer Rooney MD Acct: [id number] Dis Date: Status: ADM IN PHONE #: [phone] Exam Date: 07/15/2023 1120 FAX #: [phone] Reason: AMS, seizure-like activity EXAMS: CPT CODE: [id number] MRA NECK W/O CONT 99862 Dictation location: U19. MRA HEAD WITHOUT CONTRAST HISTORY: Altered mental status, seizure like activity. COMPARISON: None TECHNIQUE: 3-D jqvx-zf-ucamhn and MIP images were obtained through [place]. FINDINGS: Visualized portions of the common, internal and external carotid arteries are widely patent carotid stenosis, less than 25%. Both vertebral arteries are codominant and patent. IMPRESSION: No significant carotid stenosis. at 1127 Reported and signed by: Katia Hollis M.D. CC: Karen Higginbotham MD; Larry Chatman MD; Sawyer Rooney MD; Tom Richard MD Technologist: Tomás Manrique, RT(R)(CT)(MR) Trnncrd Date/Time/By: 07/15/2023 (1127) : By: [email or web address] Orig Print D/T: S: 07/15/2023 (113) PAGE 1 Signed Report- MRA HEAD W/O CONTRAST 2023-07-15 11:24:00 [facility] : 1955 Sex: M FAX: Karen Corley MD [phone] [place]: St: ADM FAX: Larry Mock MD [phone] FAX: Sawyer Rooney [phone] FAX: Tom Toribio MD [phone] Name: RAFAT,CARLOS MANUEL [facility] : 1955 Age/S: 68/M [address] [place] [address] Blvd Unit #: [id number] Loc: [address] [address] Phys: Sawyer Rooney MD Acct: [id number] Dis Date: Status: ADM IN PHONE #: [phone] Exam Date: 07/15/20231119 FAX #: [phone] Reason: AMS, seizure-like activity EXAMS: CPT CODE: [id number] MRA HEAD W/O CONTRAST 61249 Dictation location: U19. MRA HEAD WITHOUT CONTRAST HISTORY: Altered mental status, seizure likeactivity COMPARISON: None TECHNIQUE: 3-D qkur-uq-racyqm and MIP images were obtained through the [place]. FINDINGS: [place] is intact. Mild atherosclerotic disease along the cavernous and supraclinoid portions of internal carotid arteries with mild stenosis in the left A1 segment ishypoplastic. No occlusion or aneurysm. IMPRESSION: No large vessel intracranial occlusion or aneurysm at 1124 Reported and signed by: Katia Hollis M.D. CC: Karen Higginbotham MD; Larry Chatman MD; Sawyer Rooney MD; Tom Richard MD Technologist: RT Sarah(R)(CT)(MR) Trnncrd Date/Time/By: 07/15/2023 (1124) : By: [email or web address] Orig Print D/T: S: 07/15/2023 (1127) PAGE 1 Signed Report- MRI BRAIN W/O [id number] 11:22:00 [facility] : 1955 Sex: M FAX: Karen Corley MD [phone] [place]: St: [facility] FAX: Larry Mock MD [phone] FAX: Sawyer Rooney [phone] FAX: Tom Toribio MD [phone] Name: [facility] 1955 Age/S: 68/M [address] [place] [address] Unit #: [id number] Loc: [address] [place] [address] Phys: Sawyer Rooney Acct: [id number] Dis Date: Status: ADM IN PHONE #: [phone] Exam Date: 07/15/20231119 FAX#: [phone] Reason: AMS, seizure-like activity EXAMS: CPT CODE: [id number] MRI BRAIN W/O CONT 33624 Dictation location: U19. MRI BRAIN WITHOUT CONTRAST HISTORY: AMS, seizure-like activity TECHNIQUE: Multiplanar and multiple pulse sequences were obtained throughout the brain without contrast. COMPARISON: CT head 07/15/23. FINDINGS: Diffusion weighted imaging shows no evidence of acute ischemia. Mild T2/FLAIR signal hyperintensities noted in the periventricular and deep white matter. Mild generalized atrophy. No hemorrhage, mass, mass effect, hydrocephalus, midline shift or extra-axial fluid collection. The paranasal sinuses and mastoid air cells are clear. IMPRESSION: No evidence of acute ischem ia. Minimal to mild chronic microvascular ischemic changes and mild generalized atrophy. at 1122 Reported and signed by: Katia Hollis M.D. CC: Karen Higginbotham MD; Larry Chatman MD; Sawyer Rooney MD; Tom Richard MD Technologist: Tomás Manrique, RT(R)(CT)(MR) Trnscrd Date/Time/By: 07/15/2023 (1122) : By: [email or web address] OrigPrint D/T: S: 07/15/2023 (1125) PAGE 1 Signed Report- CT HEAD/BRAIN W/O CONT 2023-07-15 11:18:[address] [facility] [place] [place] MARTIN BUNOLAName: CARLOS MANUEL DOUGLASS : 1955 Sex: M Name:CARLOS MANUEL DOUGLASS [facility] Martin Rodriguez : 1955 Age/S: 68 / M [address] [place] [address] Blvd Unit #: [id number] Loc: [place] [address] Phys: ValentinoLuz Moni Gooden Acct: [id number] Dis Date: Status: ADM IN PHONE #: [phone] Exam Date: 07/15/2023 1108 FAX #: [phone] Reason: Seizure like shaking, syncope. EXAMS: CPT CODE: [id number] CT HEAD/BRAIN W/O CONT 94731 Dictation location: U19. CT HEAD WITHOUTCONTRAST. HISTORY: Seizure like shaking, syncope. COMPARISON: No comparison is available. TECHNIQUE:Axial CT images of the head were obtained with coronal and/or sagittal reformatted views. Automated exposure control, iterative reconstruction technique, and/or adjustment of mA and/or kV according to patient's size was utilized for radiation dose reduction. IV CONTRAST: None. FINDINGS: Minimal to mild amount of periventricular and deep white matter hypodensities are seen, these are most commonly associated with chronic, microvascular ischemic changes. Mild atrophy is noted. Atherosclerotic calcifica tions affect the carotid siphons. No other intracranial abnormalities such as hemorrhage, mass, mass effect, hydrocephalus, midline shift, extra-axial fluid collection or secondary signs of an acute infarct are noted. The calvarium and skull base are intact. The paranasal sinus and mastoid air cells are clear. IMPRESSION: No evidence of acute intracranial abnormality. Chronic microvascular ischemic changes and atrophy. at 1118 Reported and signed by: Katia Hollis M.D. PAGE 1 Signed Report (CONTINUED) Name: [facility] : 1955 Age/S: 68 / M [address] [place] [address] Unit #: [id number] Loc: [place] [address] Phys: Luz Avelar Acct: [id number] Dis Date: Status: ADM IN PHONE #: [phone] Exam Date: 07/15/2023 1108 FAX #: [phone] Reason: Seizure like shaking, syncope. EXAMS:CPT CODE: [id number] CT HEAD/BRAIN W/O CONT 94478 (Continued) CC: Karen Higginbotham MD; Larry Chatman MD; Tom Richard MD; Luz Avelar Technologist:Bernie Pérez, RT(R)(CT) CTDI: DLP: TrnscbDate/Time: 07/15/2023 (1118) [email or web address] Orig Print D/T: S: 07/15/2023 (1127) PAGE 2 Signed [id number] 09:46:00 Test Item Value Reference Range Interpretation Comments PHOSPHOROUS (test code = PHOS) 3.4 MG/DL 2.5-4.9 N [id number] 09:46:00 Test Item Value Reference Range Interpretation Comments MAGNESIUM (test code = 1.75 mg/dL 1.6-2.6 N NOTE: NEW NORMAL MAG) RANGE TROP-I HIGH [id number] 09:46:00 Test Item Value Reference Range Interpretation Comments TROP-I HIGH 33 ng/L 0-54 N CAUTION: Units of the SENSITIVITY (test current te st methodology code = TROPIHS) (ng/L) diffe rfrom the prior test methodolog y (ng/mL) by a factor of 1000. 99th Percentile Upper Reference Limit (URL): Females: 34 ng/LMales: 54 n g/L In order to distinguish acute elevations of h igh sensitivitytrop onin from other clinical conditions, the FourthUnive rsal Definition of M yocardial Infarction stre ssesclinical assessment and the demonstration o f a rise and/orfall in s erial troponin result s above the URL. These resu lts were obtained using Siemens AtellSpot Runner IM TnI Hreagent. Results from di fferent methodologies s hould not becompared to o ne another as quantitative results and URLs mayvary by method. UA RFLX MICR CULT IF [id number] 08:04:00 Test Item Value Reference Range Interpretation Comments UA COLOR (test code = COLU) YELLOW YEL/STRAW UA APPEARANCE (test code = CLEAR CLEAR APPU) UA GLUCOSE DIPSTICK (test code NEGATIVE NEGATIVE = DGLUU) UA BILIRUBIN DIPSTICK (test NEGATIVE NEGATIVE code = BILU) UA KETONE DIPSTICK (test code NEGATIVE NEGATIVE = KETU) UA SPECIFIC GRAVITY (test code 1.016 1.005-1.030 N = SGU) UA BLOOD DIPSTICK (test code = 1+ NEGATIVE A CINDY) UA PH DIPSTICK (test code = 5.0 5.0-7.0 N INGA) UA PROTEIN DIPSTICK (test code NEGATIVE NEGATIVE = PROU) UA UROBILINIOGEN DIPSTICK 0.2 mg/dL 0.2-1.0 (test code = URO) UA NITRITE DIPSTICK (test code NEGATIVE NEGATIVE = JYOTI) UA LEUKOCYTE ESTERASE DIPSTICK NEGATIVE NEGATIVE (test code = LEUU) UA WBC (test code = WBCU) 0-3 WBC/HPF 0-3 UA RBC (test code = RBCU) 0-3 RBC/HPF 0-3 UA WBC NO REFLEX (test code = 0-3 WBC/HPF 0-3 WBCUCL) UA BACTERIA (test code = BACU) NONE SEEN /HPF NONE SEEN UA SQUAMOUS CELLS (test code = 0-5 /HPF NONE SEEN SQU) UA MUCUS (test code = MUCU) TRACE /LPF NONE SEEN Indication for culture: Suprapubic PainSpecimen Description: CLEAN CATCHGLUCOSE [id number] 05:22:00 Test Item Value Reference Range Interpretation Comments GLUCOSE BEDSIDE (test 111 MG/DL 70-110 H Perfor med by certified code = 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 Ashley t performance dep ends on theamount of vi ac (antigen) in th e sample.This ashley t has not been FDA cleare d or approved; the t est hasbeen authori zed by FDA under an Em ergency Use Authorizati on(EUA) for use by labo ratories certified under the CLIA thatmeet the requirements to perform moderate, high or waivedcomplexit y tests. - XR CHEST 1 [id number] 04:29:00 [facility] : 1955 Sex: M FAX: Karen Corley MD [phone] [place]: St: ADM FAX: Larry Mock MD [phone] FAX: John Wong MD [phone] FAX: Tom Toribio MD [phone] Name: CARLOS MANUEL DOUGLASS [facility] [place] : 1955 Age/S: 68/M [address] [place] [address] Unit #: [id number] Loc: [place] [address] Phys: John Wong MD Acct: [id number] Dis Date: Status: ADM IN PHONE #: [phone] Exam Date: 07/15/2023404 FAX #: [phone] Reason: S/P CODE BLUE EXAMS: CPT CODE: [id number] XR CHEST 1 V 13302 LOCATION: H48 HISTORY: Male, 68 years of age with atrial fibrillation, S/P CODE BLUE EXAM: CHEST X-RAY, ONE VIEW COMPARISON: Chest x-ray 07/05/2023; chest CT without contrast 10 hours ago. COMMENT: Frontal view of the chestis provided. There is mild vascular congestion. No lobar consolidation, mass, effusion, pneumothorax, or pneumomediastinum. Cardiac silhouette is enlarged and calcified plaque noted in aorta. No acute bony abnormalities. IMPRESSION: Cardiomegaly and mild vascular congestion. at 0422 Reported and signed by: Kayleigh Parker M.D. CC: Karen Higginbotham MD; Larry Chatman MD; John Wong MD; Tom Richard MD Technologist: RT Ernst(Maryan) Trnscrd Date/Time/By: 07/15/2023 (0429) : By: Emmett Orig Print D/T: S: 07/15/2023 (0432) PAGE 1 Signed ReportPO ARTERIAL BLOOD GAS 2023-07-15 04:03:00 Test Item Value Reference Range Interpretation Comments POC ARTERIAL BLOOD GAS PH (test 7.310 7.35-7.45 L code = POCPHA) POC ARTERIAL BLOOD GAS PCO2 (test 43.2 mmHg 35.0-45 N code = MEOROS4M) POC TCO2 ARTERIAL (test code = 23.1 POCTCO2) POC ARTERIAL BLOOD GAS PO2 (test 610.7 mmHg 80-100.0 HH code = HVXUE8Z) POC HCO3 ARTERIAL (test code = 21.7 MMOL/L 22.0-26.0 L EANLII3T) POC BASE EXCESS (test code = -4.5 MMOL/L -4.0-4.0 L POCBEA) POC O2 SATURATION (test code = 100.0 % 90-100 N POCO2S) ABG DELIVERY (test code = CELIA) AeroMask ABG SITE (test code = SITEA) L Radial SHWETA'S TEST (test code = ALLENS) Positive BASIC METABOLIC [id number] 04:03:00 Test Item Value Reference Range Interpretation Comments SODIUM (test code = NA/ABG) 139 mmol/L 134-147 N POTASSIUM (test code = K/ABG) 3.4 mmol/L 3.4-5.0 N CHLORIDE (test code = CL/ABG) 105 mmol/L 100-108 N CREATININE ABG (test code = 1.1 mg/dL 0.8-1.3 N CREAABG) POC IONIZED CALCIUM (test code = 1.26 MMOL/L 1.12-1.32 N POCCA) POC GLUCOSE (test code = POCGLU) 141 MG/DL 70-110 H HEMOGLOBIN [id number] 04:03:00 Test Item Value Reference Range Interpretation Comments HEMOGLOBIN ABG (test code = 16.1 G/DL 12.5-16.9 N HGB/ABG) [id number] 04:03:00 Test Item Value Reference Range Interpretation Comments HEMATOCRIT (test code = HCT/ABG) 47 % 37.5-50.7 N POC LACTIC [id number] 04:03:00 Test Item Value Reference Range Interpretation Comments POC LACTIC ACID (test code = 3.7 mmol/l 0.9-1.7 H POCLAC) GLUCOSE [id number] 04:02:00 Test Item Value Reference Range Interpretation Comments GLUCOSE BEDSIDE (test 93 MG/DL 70-110 N [facility] med by certified code = 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[facility] BASIC METABOLIC [id number] 03:49:00 Test Item Value Reference Range Interpretation Comments SODIUM (test code = 135 mEq/L 134-147 N NA) POTASSIUM (test code 4.2 mEq/L 3.4-5.0 N = K) CHLORIDE (test code 107 mEq/L 100-108 N = CL) CARBON DIOXIDE (test 23 mEq/l 21-33 N code = CO2) ANION GAP (test code 9 0-20 N = GAP) GLUCOSE (test code = 100 mg/dL 77-141 N NOTE: N EW NORMAL RANGE GLU) BLOOD UREA NITROGEN 12 mg/dL 7-25 N NOTE: NE W NORMAL RANGE (test code = BUN) GLOMERULAR 81.5 80-90 N The Glomerular FILTRATION RATE Filtration R ate is a (test code = GFR) calculated parameterbased on serum Creatinine, pat ient age and sex. GFR va luesless than 60 mL/min/ 1.73 square meters a re indicative ofCh ronic Kidney Disease. Values less than 15 mL/min/1.73squa re meters indicate Kidney failure. The calculation forGFR is based on the CKD-EPI (2020) calculat ion. This formulais race indifferent and is the recommended for anabell for GFRby the Natio nal Kidney Foundati on for Adults.The GFR will not calculate if th e sex is unknown or if thepatient's ag e is <18 years. CREATININE (test 1.0 mg/dL 0.6-1.3 N code = CREAT) CALCIUM (test code = 8.5 mg/dL 8.0-10.5 N CA) COMMENTS: To be done morning of Heart CathPROTHROMBIN [id number] 03:45:00 Test Item Value Reference Range Interpretation Comments PROTHROMBIN TIME 16.0 SECONDS 9.3-12.9 H PATIENT (test code = PTP) INTERNATIONAL NORMAL 1.4 0.8-1.2 H TARGET INR BY RATIO (test code = INDICATIO N Indication INR) INR1. Prophylax is of venous thrombos is 2.0 - 3.0 (orthoped ic surgery), Proph ylaxis of venous throm bosis (other than hig h-risk surgery), Treat ment of Deep Vein Thrombosis/Pulm onary Embolism, Preve ntion of systemic emb olism - Tissue heart va lves, Acute Myocardia l Infarction (to prevent systemic emboli sm), Valvular heart disease, Atrial Fibrillation, Bileaflet mecha nical valve in aortic position.2. Mec hanical prosthetic valv es (high risk), 2. 5 - 3.5 Presence of Lup us Anticoagulant o r Antiphospholipi d Antibodies, Pre vention of systemic emb olism - Acute Myocardia l Infarction (to prevent recurrent infar ct). THROMBOPLASTIN TIME [id number] 03:45:00 Test Item Value Reference Range Interpretation Comments THROMBOPLASTIN TIME 31.6 Seconds 25.0-39.5 N Therape utic Range: PARTIAL (test code = 50.4 - 88.3 Seconds PTT) Effective 01/24/2019 CBC W/AUTO [id number] 03:33:00 Test Item Value Reference Range Interpretation Comments WHITE BLOOD CELL (test code = 9.6 x10 3/uL 4.5-11.0 N WBC) RED BLOOD CELL (test code = 4.41 x10 6/uL 4.00-5.60 N RBC) HEMOGLOBIN (test code = HGB) 12.8 g/dL 12.5-16.9 N HEMATOCRIT (test code = HCT) 39.5 % 37.5-50.7 N MEAN CELL VOLUME (test code = 89.6 fL 81.0-99.0 N MCV) MEAN CELL HGB (test code = MCH) 29.0 pg 27.0-33.0 N MEAN CELL HGB CONCETRATION 32.4 g/dL 33.0-37.0 L (test code = MCHC) RED CELL DISTRIBUTION WIDTH CV 12.8 % 11.5-14.5 N (test code = RDW) RED CELL DISTRIBUTION WIDTH SD 42.1 fL 37.0-54.0 N (test code = RDW-SD) PLATELET COUNT (test code = 174 x10 3/uL 150-400 N PLT) MEAN PLATELET VOLUME (test code 11.1 fL 7.0-9.0 H = MPV) NEUTROPHIL % (test code = NT%) 61.5 % 56.0-77.0 N IMMATURE GRANULOCYTE % (test 0.5 % 0.0-2.0 N code = IG%) LYMPHOCYTE % (test code = LY%) 15.1 % 14.0-32.0 N MONOCYTE % (test code = MO%) 11.9 % 4.8-9.0 H EOSINOPHIL % (test code = EO%) 10.2 % 0.3-3.7 H BASOPHIL % (test code = BA%) 0.8 % 0.0-2.0 N NUCLEATED RBC % (test code = 0.0 % 0-0 N NRBC%) NEUTROPHIL # (test code = NT#) 5.92 x10 3/uL 2.0-7.6 N IMMATURE GRANULOCYTE # (test 0.05 x10 3/uL 0.00-0.03 H code = IG#) LYMPHOCYTE # (test code = LY#) 1.45 x10 3/uL 1.0-3.8 N MONOCYTE # (test code = MO#) 1.14 x10 3/uL 0.1-0.8 H EOSINOPHIL # (test code = EO#) 0.98 x10 3/uL 0.0-0.2 H BASOPHIL # (test code = BA#) 0.08 x10 3/uL 0.0-0.2 N NUCLEATED RBC # (test code = 0.00 x10 3/uL 0.0-0.1 N NRBC#) - DUP VEIN [id number] 00:42:00 [facility] : 1955 Sex: M Name:CARLOS MANUEL DOUGLASS [facility] : 1955 Age/S: 68 / M [address] [place] [address] Unit #: [id number] Loc: [place] [address] Phys: Dorothy Ventura NP Acct: [id number] Dis Date: Status: ADM IN PHONE #: [phone] Exam Date: 07/14/20231805 FAX #: [phone] Reason: Cardiac Surgery Pre Op EXAMS: CPT CODE: [id number] DUP VEIN FLORINDA [address] LOCATION: 3 EXAM: - DUP VEIN FLORINDA HISTORY: Cardiac Surgery Pre Op COMPARISON: None. TECHNIQUE: Transverse real-time ultrasonography of the bilateral lower extremity saphenous vein systems using mcconnell-scale imaging with compression maneuvers. FINDINGS: Right greater saphenous vein diameter/depth (cm): Proximal thigh: 0.25, 1.77 Mid thigh: 0.15, 0.75 Distal thigh:0.14, 0.64 Knee: 0.13, 0.33 Proximal calf: 0.09, 0.37. Mid calf: 0.16, 0.26. Distal calf: 0.14, 0.35. Venous compressibility: Normal Left: Left greater saphenous vein diameter/depth (cm): Proximal thigh: Diameter not measured, 1.44 Mid thigh: 0.20, 0.69 Distal thigh: Not visualized Knee: Not visualized Proximal calf: 0.13, 0.41. Mid calf: 0.15, 0.23 Distal calf: 0.12, 0.40. Venous compressibility: Normal IMPRESSION: 1. Bilateral lower extremity venous mapping as above. Note that the saphenous vein at the left distal thigh and knee is not visualized. PAGE 1 Signed Report (CONTINUED) Name: CARLOS MANUEL DOUGLASS [facility] : 1955 Age/S: 68 / M [address] [place] [address] Bl Unit #: [id number] Loc: [place] [address] Phys: Dorothy Ventura NP Acct: [id number] Dis Date: Status: ADM IN PHONE #: [phone] Exam Date: 07/14/2023 1806 FAX #: [phone] Reason: Cardiac Surgery Pre Op EXAMS: CPT CODE: [id number] DUP VEIN [place]IN[place] 63350 (Continued) at 0042 Reported and signed by: Kandis Thompson M.D. CC: Karen Higginbotham MD; Larry Chatman MD; Dorothy Ventura NP; Tom Richard MD Technologist: Florence Ashley RDMS() Trnscb Date/Time: 07/15/2023 (41) [email or web address] Orig Print D/T: S: 07/15/2023 (44) Probe: PAGE 2 Signed Report- DUP EXTRACRANIAL [id number] 18:32:[address] [facility] [place] MARTIN RODRIGUEZName: CARLOS MANUEL DOUGLASS : 1955 Sex: M Name:CARLOS MANUEL DOUGLASS [facility] Martin Rodriguez : 1955 Age/S: 68 / M [address] [place] [address] Blvd Unit #: [id number] Loc: [place] [address] Phys: Dorothy Ventura NP Acct: [id number] Dis Date: Status: ADM IN PHONE #: [phone] Exam Date: 07/14/20231804 FAX #: [phone] Reason: Cardiac Surgery Pre Op EXAMS: CPT CODE: [id number] DUP EXTRACRANIAL FLORINDA [address] LOCATION: Q15 HISTORY: 68-year-old male, preoperative e xamination for cardiac surgery. COMMENT: Sonographic imaging of this patient's carotid arteries andvertebral arteries was obtained utilizing grayscale, color Doppler, and Doppler spectral imaging modalities. FINDINGS: RIGHT SIDE: ICA/CCA systolic ratio: 1.1 ICA peak systolic velocity: 69 cm/s CCA peak systolic velocity: 60 cm/s ECA peak systolic velocity: 98 cm/s The right vertebral artery exhibits antegrade blood flow. LEFT SIDE: ICA/CCA systolic ratio: 0.7 ICA peak systolic velocity: 42 cm/s CCA peak systolic velocity: 87 cm/s ECA peak systolic velocity: 94 cm/s The left vertebral artery exhibits antegrade blood flow. The grayscale examination demonstrates tortuous vessels bilaterally. No significant plaque burden is seen in either carotid bifurcation The color-flow and Doppler examination demonstrates low-resistance arterial blood flow in both ICAs and both vertebral arteries. No significant flow turbulence is seen in either carotid bifurcation. IMPRESSION: There is no sonographic evidence of high velocity stenoses in this patient's carotid arteries. The vertebral arteries exhibit antegrade blood flow. PAGE 1 Signed Report (CONTINUED) Name: CARLOS MANUEL DOUGLASS : 1955ge/S: 68 / M [address] [place] [address] Unit #: [id number] Loc: [place] [address] Phys: Dorothy Ventura NP Acct: [id number] Dis Date: Status: ADM IN PHONE #: [phone] Exam Date: 07/14/2023 180 FAX #: [phone] Reason: Cardiac Surgery Pre Op EXAMS: CPT CODE: [id number] DUP EXTRACRANIAL FLORINDA 11690 (Continued) at 1832 Reported and signed by: Jatin Caballero M.D. CC: Karen Higginbotham MD; Larry Chatman MD; Dorothy Ventura NP; oTm Richard MD Technologist: Florence Ashley RDMS(AB) Trnscb Date/Time: 07/14/2023 (1831) [email or web address] Orig Print D/T: S: 07/14/2023 (1834) Probe: PAGE 2 Signed Report- CT CHEST W/O [id number] 18:12:[address] [facility] [place] [place] MARTIN BUNOLAName: CARLOS MANUEL DOUGLASS : 1955 Sex: M Name:CARLOS MANUEL DOUGLASS : 1955 Age/S: 68 / M [address] [place] [address] Unit #: [id number] Loc: [place] [address] Phys: Dorothy Ventura ALUMINUM FABRICATION SUPERVISOR Acct: [id number] Dis Date: Status: ADM IN PHONE#: [phone] Exam Date: 07/14/20231713 FAX #: [phone] Reason: Cardiac Surgery Pre Op EXAMS: CPT CODE: [id number] CT CHEST W/O CONTRAST 04043 LOCATION: Q15 HISTORY: 68-year-old male, preoperative examination for cardiac surgery. COMMENT: Axial imaging the patient's chest was obtained without IV contrast. Soft tissue and lung window images were submitted in the axial plane. Coronal and sagittal soft tissue reconstructions were included. A chest x-ray obtained July 05, 2023 is available for comparison. Unless otherwise specified, incidental findings do not require dedicated imaging follow-up. CONTRAST: None. One or more of the following dose reduction techniques were used: Automated exposure control, adjustment of the mA and/or kV according to patient size, and/or utilization of iterative reconstruction technique. FINDINGS: The lungs are clear. The cardiac silhouette is unremarkable. A few scattered calcifications are seen in the villatoro of the aortic arch. The great vessels are mildlytortuous. The pulmonary arterial anatomy is unremarkable. There are scattered small calcifications seen in the origin of the left main coronary artery, the LAD coronary artery, and the distal right cor onary artery. There is no adenopathy or pleural effusions seen in the chest. The thoracic inlet, chest wall, and upper abdomen are unremarkable. IMPRESSION: There are no acute findings seen in this patient's chest on this unenhanced CT examination. Please see above for details. PAGE 1 Signed Report (CONTINUED) Name: CARLOS MANUEL DOUGLASS [facility] : 1955 Age/S: 68 / M [address] [place] [address] Unit #: [id number] Loc: [place] [address] Phys: Dorothy Ventura ALUMINUM FABRICATION SUPERVISOR Acct: [id number] Dis Date: Status: ADM IN PHONE #: [phone] Exam Date: 07/14/20231713 FAX #: [phone] Reason: Cardiac SurgeryPre Op EXAMS: CPT CODE: [id number] CT CHEST W/O CONTRAST 51464 (Continued) at 1812 Reported and signed by: Jatin Caballero M.D. CC: Karen Higginbotham MD; Larry Chatman MD; Dorothy Ventura ALUMINUM FABRICATION SUPERVISOR; Tom Richard MD Technologist:Ludmila DavidsonRT(R)(CT) CTDI: DLP: Trnscb Date/Time: 07/14/2023 (1811) [email or web address] Orig Print D/T: S: 07/14/2023 (18 16) PAGE 2 Signed ReportB-TYPE NATRIURETIC [id number] 17:20:00 Test Item Value Reference Range Interpretation Comments B-TYPE NATRIURETIC PEPTIDE (test 328.0 PG/ML 0-100 H code = BNP) COMPREHENSIVE METABOLIC [id number] 16:50:00 Test Item Value Reference Range Interpretation Comments SODIUM (test code = 135 mEq/L 134-147 N NA) POTASSIUM (test code 4.3 mEq/L 3.4-5.0 N = K) CHLORIDE (test code 103 mEq/L 100-108 N = CL) CARBON DIOXIDE (test 24 mEq/l 21-33 N code = CO2) ANION GAP (test code 12 0-20 N = GAP) GLUCOSE (test code = 116 mg/dL 77-141 NOTE: N EW NORMAL RANGE GLU) BLOOD UREA NITROGEN 11 mg/dL 7-25 N NOTE: NE W NORMAL RANGE (test code = BUN) GLOMERULAR 72.7 80-90 L The Glomerular FILTRATION RATE Filtration R ate is a (test code = GFR) calculated parameterbased on serum Creatinin e, patient age and sex. GFR valuesless than 60 mL/min/1.73 squ are meters are sammi cative ofChronic Kidne y Disease. Values less than 15 mL/min/1.73squa re meters indicate Kidney failure. The calculation for GFR is based on the CK D-EPI (2020) calculat ion. This formulais race indifferent and is the recommended for anabell for GFRby the N ational Kidney Foundati on for Adults.The GFR will not calculate i f the sex is unknown or if thepatient's ag e is <18 years. CREATININE (test 1.1 mg/dL 0.6-1.3 N code = CREAT) TOTAL PROTEIN (test 7.0 g/dL 6.4-8.2 N code = PROT) ALBUMIN (test code = 3.80 g/dL 3.4-5.0 N ALB) CALCIUM (test code = 8.7 mg/dL 8.0-10.5 N CA) BILIRUBIN TOTAL 1.60 mg/dL 0.0-1.0 H (test code = BILT) SGOT/AST (test code 20 IUnit/L 8-34 N NOTE: NE W NORMAL RANGE = AST) SGPT/ALT (test code 13 IUnit/L 10-49 N NOTE: NE W NORMAL RANGE = ALT) ALKALINE PHOSPHATASE 138 IUnit/L 20-125 H TOTAL (test code = ALKP) LIPID PROFILE (CORONARY RISK)2023-07-14 16:49:00 Test Item Value Reference Range Interpretation Comments TRIGLYCERIDES (test 136 mg/dL 40-150 N code = TRIG) CHOLESTEROL (test 166 mg/dL <200 code = CHOL) CHOLESTEROL/HDL 3.52 RATIO 3.43-4.97 N RISK ASSOCIA CHUCHO WITH RATIO (test code = CHOL/HDL RATIOS: RISK CHOLHDL) MALE FEMALE1/2 AVERAGE 3.43 3.27AVERAG E 4.97 4.442X AVERAGE 9.55 7.053X AVERAGE 23.39 11.04 NOTE THAT THE REFERENCE VALUE IS RELATEDTO RISK LEVELS RECOMMENDED BY THE NATL.HEART, RANDALL G, AND BLOOD INST. HDL CHOLESTEROL 47.1 MG/DL 40-60 N Note oneil e in (test code = HDL) REFERENCE RANGE due to change in REAGE NT.HDL Interpretation < 40.0 mg/dL Low (unde sirable, high risk)> 60. 0 mg/dL High (desirable , low risk) Reference interval for anurag varma adults was esta blished by theNational Cholesterol Edu cation Program (NCEP). LIPOPROTEIN LDL 94.0 mg/dL 0-100 N <100 OPTIMAL 100-129 (test code = LDL) NEAR OPTIM AL/ABOVE [id number] HIGH>XH=562 RICCO Y HIGH*Guidelines provided by the National Choles terol EducationProgra m Adult Treatment Panel III HGBA1C%2023-07-14 16:45:00 Test Item Value Reference Range Interpretation Comments HGBA1C% (test code = HGBA1C%) 5.7 %A1C 4.8-6.0 N PROTHROMBIN [id number] 16:41:00 Test Item Value Reference Range Interpretation Comments PROTHROMBIN TIME 16.0 SECONDS 9.3-12.9 H PATIENT (test code = PTP) INTERNATIONAL NORMAL 1.4 0.8-1.2 H TARGET INR BY RATIO (test code = INDICATIO N Indication INR) INR1. Prophylax is of venous thrombos is 2.0 - 3.0 (orthoped ic surgery), Proph ylaxis of venous thro mbosis (other than hig h-risk surgery), Treat ment of Deep Vein Thrombosis/Pulm onary Embolism, Preve ntion of systemic emb olism - Tissue heart va lves, Acute Myocardia l Infarction (to prevent systemic emboli sm), Valvular heart disease, Atrial Fibrillation, Bileaflet mecha nical valve in aortic position.2. Mec hanical prosthetic valv es (high risk), 2. 5 - 3.5 Presence of Lup us Anticoagulant o r Antiphospholipi d Antibodies, Pre vention of systemic emb olism - Acute Myocardia l Infarction (to prevent recurrent infar ct). THROMBOPLASTIN TIME [id number] 16:41:00 Test Item Value Reference Range Interpretation Comments THROMBOPLASTIN TIME 33.6 Seconds 25.0-39.5 N Therape utic Range: PARTIAL (test code = 50.4 - 88.3 Seconds PTT) Effective 01/24/2019 CBC W/AUTO [id number] 16:26:00 Test Item Value Reference Range Interpretation Comments WHITE BLOOD CELL (test code = 9.0 x10 3/uL 4.5-11.0 N WBC) RED BLOOD CELL (test code = 4.87 x10 6/uL 4.00-5.60 N RBC) HEMOGLOBIN (test code = HGB) 14.1 g/dL 12.5-16.9 N HEMATOCRIT (test code = HCT) 42.9 % 37.5-50.7 N MEAN CELL VOLUME (test code = 88.1 fL 81.0-99.0 N MCV) MEAN CELL HGB (test code = MCH) 29.0 pg 27.0-33.0 N MEAN CELL HGB CONCETRATION 32.9 g/dL 33.0-37.0 L (test code = MCHC) RED CELL DISTRIBUTION WIDTH CV 13.0 % 11.5-14.5 N (test code = RDW) RED CELL DISTRIBUTION WIDTH SD 42.0 fL 37.0-54.0 N (test code = RDW-SD) PLATELET COUNT (test code = 172 x10 3/uL 150-400 N PLT) MEAN PLATELET VOLUME (test code 11.3 fL 7.0-9.0 H = MPV) NEUTROPHIL % (test code = NT%) 67.0 % 56.0-77.0 N IMMATURE GRANULOCYTE % (test 0.6 % 0.0-2.0 N code = IG%) LYMPHOCYTE % (test code = LY%) 15.3 % 14.0-32.0 N MONOCYTE % (test code = MO%) 7.3 % 4.8-9.0 N EOSINOPHIL % (test code = EO%) 9.1 % 0.3-3.7 H BASOPHIL % (test code = BA%) 0.7 % 0.0-2.0 N NUCLEATED RBC % (test code = 0.0 % 0-0 N NRBC%) NEUTROPHIL # (test code = NT#) 6.02 x10 3/uL 2.0-7.6 N IMMATURE GRANULOCYTE # (test 0.05 x10 3/uL 0.00-0.03 H code = IG#) LYMPHOCYTE # (test code = LY#) 1.37 x10 3/uL 1.0-3.8 N MONOCYTE # (test code = MO#) 0.66 x10 3/uL 0.1-0.8 N EOSINOPHIL # (test code = EO#) 0.82 x10 3/uL 0.0-0.2 H BASOPHIL # (test code = BA#) 0.06 x10 3/uL 0.0-0.2 N NUCLEATED RBC # (test code = 0.00 x10 3/uL 0.0-0.1 N NRBC#) BASIC METABOLIC [id number] 16:15:00 Test Item Value Reference Range Interpretation Comments SODIUM (test code = 135 mEq/L 134-147 N NA) POTASSIUM (test code 4.5 mEq/L 3.4-5.0 N = K) CHLORIDE (test code 101 mEq/L 100-108 N = CL) CARBON DIOXIDE (test 27 mEq/l 21-33 N code = CO2) ANION GAP (test code 11 0-20 N = GAP) GLUCOSE (test code = 92 mg/dL 77-141 N NOTE: N EW NORMAL RANGE GLU) BLOOD UREA NITROGEN 13 mg/dL 7-25 N NOTE: NE W NORMAL RANGE (test code = BUN) GLOMERULAR 59.5 80-90 L The Glomerular FILTRATION RATE Filtration R ate is a (test code = GFR) calculated parameterbased on serum Creatinine, pat ient age and sex. GFR va luesless than 60 mL/min/ 1.73 square meters a re indicative ofCh ronic Kidney Disease. Values less than 15 mL/min/1.73squa re meters indicate Kidney failure. The calculation forGFR is based on the CKD-EPI (2020) calculat ion. This formulais race indifferent and is the recommended for anabell for GFRby the Natio nal Kidney Foundati on for Adults.The GFR will not calculate if th e sex is unknown or if thepatient's ag e is <18 years. CREATININE (test 1.3 mg/dL 0.6-1.3 N code = CREAT) CALCIUM (test code = 9.4 mg/dL 8.0-10.5 N CA) [id number] 16:15:00 Test Item Value Reference Range Interpretation Comments PREALBUMIN (test code = PREALB) 19.9 mg/dL 16.0-40.0 N PROTHROMBIN [id number] 16:06:00 Test Item Value Reference Range Interpretation Comments PROTHROMBIN TIME 19.8 SECONDS 9.3-12.9 H PATIENT (test code = PTP) INTERNATIONAL NORMAL 1.8 0.8-1.2 H TARGET INR BY RATIO (test code = INDICATIO N Indication INR) INR1. Prophylax is of venous thrombos is 2.0 - 3.0 (orthoped ic surgery), Proph ylaxis of venous throm bosis (other than hig h-risk surgery), Treat ment of Deep Vein Thrombosis/Pulm onary Embolism, Preve ntion of systemic emb olism - Tissue heart va lves, Acute Myocardia l Infarction (to prevent systemic emboli sm), Valvular heart disease, Atrial Fibrillation, Bileaflet mecha nical valve in aortic position.2. Mec hanical prosthetic valv es (high risk), 2. 5 - 3.5 Presence of Lup us Anticoagulant o r Antiphospholipi d Antibodies, Pre vention of systemic emb olism - Acute Myocardia l Infarction (to prevent recurrent infar ct). CBC W/AUTO [id number] 15:58:00 Test Item Value Reference Range Interpretation Comments WHITE BLOOD CELL (test code = 10.6 x10 3/uL 4.5-11.0 N WBC) RED BLOOD CELL (test code = 5.05 x10 6/uL 4.00-5.60 N RBC) HEMOGLOBIN (test code = HGB) 14.4 g/dL 12.5-16.9 N HEMATOCRIT (test code = HCT) 45.1 % 37.5-50.7 N MEAN CELL VOLUME (test code = 89.3 fL 81.0-99.0 N MCV) MEAN CELL HGB (test code = MCH) 28.5 pg 27.0-33.0 N MEAN CELL HGB CONCETRATION 31.9 g/dL 33.0-37.0 L (test code = MCHC) RED CELL DISTRIBUTION WIDTH CV 13.0 % 11.5-14.5 N (test code = RDW) RED CELL DISTRIBUTION WIDTH SD 42.3 fL 37.0-54.0 N (test code = RDW-SD) PLATELET COUNT (test code = 215 x10 3/uL 150-400 N PLT) MEAN PLATELET VOLUME (test code 11.7 fL 7.0-9.0 H = MPV) NEUTROPHIL % (test code = NT%) 62.4 % 56.0-77.0 N IMMATURE GRANULOCYTE % (test 0.8 % 0.0-2.0 N code = IG%) LYMPHOCYTE % (test code = LY%) 16.6 % 14.0-32.0 N MONOCYTE % (test code = MO%) 10.2 % 4.8-9.0 H EOSINOPHIL % (test code = EO%) 9.1 % 0.3-3.7 H BASOPHIL % (test code = BA%) 0.9 % 0.0-2.0 N NUCLEATED RBC % (test code = 0.0 % 0-0 N NRBC%) NEUTROPHIL # (test code = NT#) 6.61 x10 3/uL 2.0-7.6 N IMMATURE GRANULOCYTE # (test 0.08 x10 3/uL 0.00-0.03 H code = IG#) LYMPHOCYTE # (test code = LY#) 1.75 x10 3/uL 1.0-3.8 N MONOCYTE # (test code = MO#) 1.08 x10 3/uL 0.1-0.8 H EOSINOPHIL # (test code = EO#) 0.96 x10 3/uL 0.0-0.2 H BASOPHIL # (test code = BA#) 0.09 x10 3/uL 0.0-0.2 N NUCLEATED RBC # (test code = 0.00 x10 3/uL 0.0-0.1 N NRBC#) MANUAL DIFF REQUIRED (test code NO = IFF) - XR CHEST 2 [id number] 13:48:00 [facility] CARL[facility] MAN[facility]EL : 1955 Sex: M FAX: Larry Mock MD [phone] [place]: St: PRE FAX: Tom Toribio MD [phone] [facility]: 1955 Age[facility] 68/M [address] [place] [address] Unit #: [id number] [place]: [place], [place] [address]Ovvl: Tom Richard MD Acct: [id number] Dis Date: Status: PRE IN PHONE #: [phone] Exam Date: 07/05/2023 1345 FAX #: [phone] Reason: PRE OP EXAMS: CPT CODE: [id number] XR CHEST 2 V [id number] EXAM: CHEST X-RAY INDICATION: PRE OP ADMITTING DIAGNOSIS: A. Fib LOCATION CODE: C3 COMPARISON: None TECHNIQUE: Two views of the chest DISCUSSION: Catheter and Tubes: none Lung: The lungs are clear. No pneumothorax or pleural effusion. Mediastinum: Unremarkable Cardiac: Unremarkable Osseous structures are within normal limits. IMPRESSION: 1. No acute cardiopulmonary process. The above report was generated by using voice recognition. at 1348 Reported and signed by: Jasmeet Taylor M.D. CC: Larry Chatman MD; Tom Richard MD Technologist: RT Idalia(Maryan) Trnscrd Date/Time/By: 07/05/2023 (7868) : By: AudreyHPAriel Orig Print D/T: S: 07/05/2023 ([id number]) PAGE 1 Signed ReportBASIC METABOLIC PANEL 2023-07-05 13:21:00 Test Item Value Reference Range Interpretation Comments SODIUM (test code = 135 mEq/L 134-147 N NA) POTASSIUM (test code 4.0 mEq/L 3.4-5.0 N = K) CHLORIDE (test code 101 mEq/L 100-108 N = CL) CARBON DIOXIDE (test 30 mEq/l 21-33 N code = CO2) ANION GAP (test code 8 0-20 N = GAP) GLUCOSE (test code = 116 mg/dL 77-141 N NOTE: N EW NORMAL RANGE GLU) BLOOD UREA NITROGEN 17 mg/dL 7-25 N NOTE: NE W NORMAL RANGE (test code = BUN) GLOMERULAR 65.5 80-90 L The Glomerular FILTRATION RATE Filtration R ate is a (test code = GFR) calculated parameterbased on serum Creatinine, pat ient age and sex. GFR va luesless than 60 mL/min/ 1.73 square meters a re indicative ofCh ronic Kidney Disease. Values less than 15 mL/min/1.73squa re meters indicate Kidney failure. The calculation forGFR is based on the CKD-EPI (2020) calculat ion. This formulais race indifferent and is the recommended for anabell for GFRby the Natio nal Kidney Foundati on for Adults.The GFR will not calculate if th e sex is unknown or if thepatient's ag e is <18 years. CREATININE (test 1.2 mg/dL 0.6-1.3 N code = CREAT) CALCIUM (test code = 8.9 mg/dL 8.0-10.5 N CA) [id number] 13:21:00 Test Item Value Reference Range Interpretation Comments PREALBUMIN (test code = PREALB) 19.0 mg/dL 16.0-40.0 N PROTHROMBIN [id number] 13:14:00 Test Item Value Reference Range Interpretation Comments PROTHROMBIN TIME 36.9 SECONDS 9.3-12.9 H PATIENT (test code = PTP) INTERNATIONAL NORMAL 3.3 0.8-1.2 H TARGET INR BY RATIO (test code = INDICATIO N Indication INR) INR1. Prophylax is of venous thrombos is 2.0 - 3.0 (orthoped ic surgery), Proph ylaxis of venous throm bosis (other than hig h-risk surgery), Treat ment of Deep Vein Thrombosis/Pulm onary Embolism, Preve ntion of systemic emb olism - Tissue heart va lves, Acute Myocardia l Infarction (to prevent systemic emboli sm), Valvular heart disease, Atrial Fibrillation, Bileaflet mecha nical valve in aortic position.2. Mec hanical prosthetic valv es (high risk), 2. 5 - 3.5 Presence of Lup us Anticoagulant o r Antiphospholipi d Antibodies, Pre vention of systemic emb olism - Acute Myocardia l Infarction (to prevent recurrent infar ct). CBC W/AUTO [id number] 13:03:00 Test Item Value Reference Range Interpretation Comments WHITE BLOOD CELL (test code = 9.2 x10 3/uL 4.5-11.0 N WBC) RED BLOOD CELL (test code = 4.69 x10 6/uL 4.00-5.60 N RBC) HEMOGLOBIN (test code = HGB) 13.7 g/dL 12.5-16.9 N HEMATOCRIT (test code = HCT) 41.8 % 37.5-50.7 N MEAN CELL VOLUME (test code = 89.1 fL 81.0-99.0 N MCV) MEAN CELL HGB (test code = MCH) 29.2 pg 27.0-33.0 N MEAN CELL HGB CONCETRATION 32.8 g/dL 33.0-37.0 L (test code = MCHC) RED CELL DISTRIBUTION WIDTH CV 13.2 % 11.5-14.5 N (test code = RDW) RED CELL DISTRIBUTION WIDTH SD 42.8 fL 37.0-54.0 N (test code = RDW-SD) PLATELET COUNT (test code = 218 x10 3/uL 150-400 N PLT) MEAN PLATELET VOLUME (test code 11.3 fL 7.0-9.0 H = MPV) NEUTROPHIL % (test code = NT%) 71.9 % 56.0-77.0 N IMMATURE GRANULOCYTE % (test 0.4 % 0.0-2.0 N code = IG%) LYMPHOCYTE % (test code = LY%) 12.3 % 14.0-32.0 L MONOCYTE % (test code = MO%) 10.9 % 4.8-9.0 H EOSINOPHIL % (test code = EO%) 3.6 % 0.3-3.7 N BASOPHIL % (test code = BA%) 0.9 % 0.0-2.0 N NUCLEATED RBC % (test code = 0.0 % 0-0 N NRBC%) NEUTROPHIL # (test code = NT#) 6.64 x10 3/uL 2.0-7.6 N IMMATURE GRANULOCYTE # (test 0.04 x10 3/uL 0.00-0.03 H code = IG#) LYMPHOCYTE # (test code = LY#) 1.14 x10 3/uL 1.0-3.8 N MONOCYTE # (test code = MO#) 1.01 x10 3/uL 0.1-0.8 H EOSINOPHIL # (test code = EO#) 0.33 x10 3/uL 0.0-0.2 H BASOPHIL # (test code = BA#) 0.08 x10 3/uL 0.0-0.2 N NUCLEATED RBC # (test code = 0.00 x10 3/uL 0.0-0.1 N NRBC#) MANUAL DIFF REQUIRED (test code NO = MDIFF) Prothrombin Time / [id number] 14:18:09 Test Item Value Reference Range Interpretation Comments PROTIME PATIENT (test See_Comment H [Auto mated message] code = 5964-2) The system [employer] generated this result transmitted ref erence range: 12.0 - 1 4.7 Seconds. The reference range was not used to int erpret this result as normal/abnormal . INR (test code = 6301-6) Nor mal INR <1.1; Warfarin Therap eutic range 2.0 to 3. 0 or 2.5 to 3.5, dep ending upon the indica tions. Lab Interpretation (test Abnormal code = 32526-5) [facility] / [id number] 14:18:09 Test Item Value Reference Range Interpretation Comments PROTIME PATIENT (test See_Comment H [Auto mated message] code = 5964-2) The system [employer] generated this result transmitted ref erence range: 12.0 - 1 4.7 Seconds. The reference range was not used to int erpret this result as normal/abnormal . INR (test code = 6301-6) Nor mal INR <1.1; Warfarin Therap eutic range 2.0 to 3. 0 or 2.5 to 3.5, dep ending upon the indica tions. Lab Interpretation (test Abnormal code = 35034-7) [facility] / [id number] 13:45:47 Test Item Value Reference Range Interpretation Comments PROTIME PATIENT (test See_Comment H [Auto mated message] code = 5964-2) The system [employer] generated this result transmitted ref erence range: 12.0 - 1 4.7 Seconds. The reference range was not used to int erpret this result as normal/abnormal . INR (test code = 6301-6) Nor mal INR <1.1; Warfarin Therap eutic range 2.0 to 3. 0 or 2.5 to 3.5, dep ending upon the indica tions. Lab Interpretation (test Abnormal code = 35196-3) [facility] / [id number] 13:45:47 Test Item Value Reference Range Interpretation Comments PROTIME PATIENT (test See_Comment H [Auto mated message] code = 5964-2) The system [employer] generated this result transmitted ref erence range: 12.0 - 1 4.7 Seconds. The reference range was not used to int erpret this result as normal/abnormal . INR (test code = 6301-6) Nor mal INR <1.1; Warfarin Therap eutic range 2.0 to 3. 0 or 2.5 to 3.5, dep ending upon the indica tions. Lab Interpretation (test Abnormal code = 87431-0) [facility]
[2023-08-07 11:56] LABS: Absolute Lymphocytes (CBC) 1.4 K/uL (0.7-4.9); Hematocrit 32.7 % (39.6-49.0); MCV 87.8 fL (80-100); MPV 7.1 fL (7.6-11.3); Platelets 409 thou/uL (152-406); RBC Red Blood Cell Count 3.72 M/uL (4.33-5.43)
--- NOTE | 2023-08-07 11:57 | RAD REPORT ---
EXAM DESCRIPTION: RAD - Chest Single View - 08/07/2023 11:52 am CLINICAL HISTORY: CHEST PAIN COMPARISON: Chest Pa And Lat (2 Views) dated 08/05/2021; Chest Single View dated 04/09/2016; CHEST SI NGLE VIEW dated 06/17/2012 FINDINGS: Lines: None. Lungs: No evidence of edema or pneumonia. Pleural: No significant pleural effusions or pneumothorax. Cardiac: Cardiomegaly. Defibrillator pads. Mediastinum: Within normal limits. Bones: No acute fractures. Sternotomy. Other: None IMPRESSION: No acute cardiopulmonary disease.
[2023-08-07] MEDS ORDERED: ASPIRIN 81 MG CHEWABLE TABLET ONE (12:02)
[2023-08-07 12:14] LABS: Troponin High Sensitivity 45.6 pg/mL (<58.9)
[2023-08-07] MEDS ORDERED: NA CHLORIDE 0.9% 1,000 ML ONE (12:54)
--- NOTE | 2023-08-07 13:06 | ER ---
Nurse's Notes [facility] Name: Jim Taylor Jr Age: 68 yrs Sex: Male : 1955 Arrival Date: 08/07/2023 Time: 11:37 Bed 4 Private MD: Diagnosis: Lightheadedness Presentation: 08/07 11:42 Chief complaint: Reports he "doesn't feel right." reports cardiac arrest, triple hb bypass, and pacemaker placement 3 weeks ago. Halter monitor in place. Coronavirus screen: At this time, the client does not indicate any symptoms associated with coronavirus-19. Ebola Screen: No symptoms or risks identified at this time. Initial Sepsis Screen: Does the patient meet any 2 criteria? No. Patient's initial sepsis screen is negative. Does the patient have a suspected source of infection? No. Patient's initial sepsis screen is negative. Risk Assessment: Do you want to hurt yourself or someone else? Patient reports no desire to harm self or others. Onset of symptoms was August 07, 2023. 11:42 Method Of Arrival: Wheelchair hb 11:42 Acuity: CYNTHIA 2 hb Historical: - Allergies: 11:45 No Known Allergies; hb - PMHx: 11:45 Atrial Fib; atrial flutter; Pacemaker (atrial flutter); hb - PSHx: 11:45 Triple Bypass (atrial flutter); hb - Immunization history:: Adult Immunizations up to date. - Social history:: Smoking status: Patient denies any tobacco usage or history of. Patient/guardian denies using alcohol. Screenin:46 [facility] ED Fall Risk Assessment (Adult) History of falling in the last 3 months, ld1 including since admission No falls in past 3 months (0 pts). Abuse screen: Denies threats or abuse. Denies injuries from another. Nutritional screening: No deficits noted. Tuberculosis screening: No symptoms or risk factors identified. Assessment: 11:46 General: Appears in no apparent distress. uncomfortable, Behavior is cooperative, ld1 anxious. Pain: Denies pain. Neuro: Level of Consciousness is awake, alert, obeys commands, Oriented to person, place, time, situation. Cardiovascular: Capillary refill < 3 seconds Patient's skin is warm and dry. Rhythm is Respiratory: Airway is patent Respiratory effort is even, unlabored. GI: Abdomen is round non-distended. : No signs and/or symptoms were reported regarding the genitourinary system. EENT: No signs and/or symptoms were reported regarding the EENT system. Derm: No signs and/or symptoms reported regarding the dermatologic system. Musculoskeletal: No signs and/or symptoms reported regarding the musculoskeletal system. 11:46 Reassessment: Pt states "I am not in pain, I just do not feel right. Like something is ld1 wrong.". 13:05 Reassessment: No changes from previously documented assessment. Patient and/or family ld1 updated on plan of care and expected duration. Pain level reassessed. Patient is alert, oriented x 3, equal unlabored respirations, skin warm/dry/pink. 13:45 Reassessment: Patient appears in no apparent distress at this time. No changes from ld1 previously documented assessment. Patient and/or family updated on plan of care and expected duration. Pain level reassessed. Patient is alert, oriented x 3, equal unlabored respirations, skin warm/dry/pink. Vital Signs: 11:42 BP 131 / 78; Pulse 60; Resp 18; Temp 97.7(TE); Pulse Ox 98% on R/A; Weight 76.2 kg; hb Height 5 ft. 6 in. ; Pain 5/10; 11:46 BP 131 / 79; Pulse 60; Resp 16; Pulse Ox 99% on R/A; ld1 13:05 BP 115 / 83; Pulse 60; Resp 18; Pulse Ox 98% on R/A; ld1 13:45 BP 121 / 76; Pulse 62; Resp 14; Pulse Ox 100% on R/A; ld1 11:42 Body Mass Index 27.12 (76.20 kg, 167.64 cm) hb 11:42 Pain Scale: Adult hb ED Course: 11:41 Patient arrived in ED. eb 11:43 Robert Dunne MD is Attending Physician. ec2 11:45 Triage completed. hb 11:46 Patient has correct armband on for positive identification. Placed in gown. Bed in low ld1 position. Call light in reach. Side rails up X2. lunchroom monitor on. Pulse ox on. NIBP on. Door closed. Noise minimized. Warm blanket given. 11:46 No provider procedures requiring assistance completed. Inserted saline lock: 20 gauge ld1 in right antecubital area, using aseptic technique. Blood collected. 11:53 XRAY Chest (1 view) In Process Unspecified. EDMS 13:45 Nelly Hatch, RN is Primary Nurse. ld1 13:45 Arm band placed on right wrist. ld1 13:45 IV discontinued, intact, bleeding controlled, No redness/swelling at site. ld1 Administered Medications: 11:51 Drug: Aspirin PO Chewable Tablet 324 mg PO once; 81 mg tablets x 4 Route: PO; ld1 12:44 Drug: NS 0.9% IV 1000 ml IV at 1 bolus Per protocol; 1000 mL bolus Route: IV; Rate: 1 ld1 bolus; Site: right antecubital; Medication: 11:46 VIS not applicable for this client. ld1 Outcome: 13:05 Discharge ordered by . ec2 13:45 Discharged to home ambulatory, with family, ld1 13:45 Condition: stable 13:45 Discharge instructions given to patient, family, Instructed on discharge instructions, follow up and referral plans. Demonstrated understanding of instructions, follow-up care, 13:46 Patient left the ED. ld1 Signatures: Dispatcher [employer] EDAL Hodan Iraheta RN RN hb Botello, Elizabeth eb Sims, Lauren, RN RN ld1 Robert Dunne MD MD ec2
--- NOTE | 2023-08-07 13:06 | EDPHYS ---
Physician Documentation [facility] Name: Jim Taylor Jr Age: 68 yrs Sex: Male : 1955 Arrival Date: 08/07/2023 Time: 11:37 Bed 4 Private MD: ED Physician Roebrt Dunne HPI: 08/07 11:53 This 68 yrs old Male presents to ER via Wheelchair with complaints of weakness, ec2 lightheadedness. 11:53 Patient arrives today for evaluation of generalized weakness as well as ec2 lightheadedness. States that he feels off, when pressed on this a little bit more specifically he states he feels like maybe he is going to pass out. Patient reports no chest pain, no difficulty breathing, no abdominal pain, no nausea, no vomiting, no diarrhea. Patient has significant recent medical problems including a recent pacemaker placement, recent bypass, recent cardiac arrest.. Historical: - Allergies: 11:45 No Known Allergies; hb - PMHx: 11:45 Atrial Fib; atrial flutter; Pacemaker (atrial flutter); hb - PSHx: 11:45 Triple Bypass (atrial flutter); hb - Immunization history:: Adult Immunizations up to date. - Social history:: Smoking status: Patient denies any tobacco usage or history of. Patient/guardian denies using alcohol. ROS: 11:53 Constitutional: as per hpi ec2 Exam: 11:53 Constitutional: GEN: NAD Head: atraumatic Eyes: EOMI Ears: External ears are ec2 normal. CV: regular rate LUNGS: no respiratory distress ABD: non-distended, soft, nontender, no guarding, not rigid SKIN: Well-healing sternal surgical scar MSK: no evidence of trauma NEURO: moves all extremities equally Vital Signs: 11:42 BP 131 / 78; Pulse 60; Resp 18; Temp 97.7(TE); Pulse Ox 98% on R/A; Weight 76.2 kg; hb Height 5 ft. 6 in. ; Pain 5/10; 11:46 BP 131 / 79; Pulse 60; Resp 16; Pulse Ox 99% on R/A; ld1 13:05 BP 115 / 83; Pulse 60; Resp 18; Pulse Ox 98% on R/A; ld1 13:45 BP 121 / 76; Pulse 62; Resp 14; Pulse Ox 100% on R/A; ld1 11:42 Body Mass Index 27.12 (76.20 kg, 167.64 cm) hb 11:42 Pain Scale: Adult hb MDM: 11:43 Patient medically screened. ec2 11:53 ED course: Patient arrives today due to concern for generalized weakness. Examination ec2 remarkable for well-appearing nontoxic individual is otherwise in no acute distress with a generally reassuring vital signs and well-healing surgical scars. Will obtain a cardiac work-up, give the patient full dose aspirin and crystalloid, obtain a chest x-ray. Currently considered arrhythmia, electrolyte disturbance, ACS.. 11:56 ED course: EKG independently reviewed and interpreted by me, shows atrial flutter, rate ec2 of 60, no acute ST segment elevations, nonconcerning intervals.. 12:58 ED course: Patient is lab work remarkable for reassuring metabolic profile with no ec2 significant renal abnormalities, CBC that reassuring with slight anemia appreciated, troponin that is within normal ranges. Chest x-ray that shows no acute intrathoracic process. . 13:04 ED course: I used shared decision making with the family, offered inpatient admission ec2 given the patient's recent complex medical history however patient reports marked improvement and resolution of his symptoms and would like to return to home as he has follow-up appointments this week that he plans to make. Ultimately there is no identifiable emergent process identified on lab work or the radiographs to warrant inpatient admission however given his complex history of that this would be reasonable. I will discharge and I gave him strict return precautions or if they change mind to return to the emergency department.. 13:06 Data reviewed: vital signs. ec2 08/07 11:44 Order name: Basic Metabolic Panel; Complete Time: 12:42 ec2 08/07 11:44 Order name: CBC with Diff; Complete Time: 12:42 ec2 08/07 11:44 Order name: Troponin HS; Complete Time: 12:42 ec2 08/07 11:44 Order name: XRAY Chest (1 view); Complete Time: 12:42 ec2 08/07 11:44 Order name: EKG; Complete Time: 11:45 ec2 08/07 11:44 Order name: Cardiac monitoring; Complete Time: 11:45 ec2 08/07 11:44 Order name: EKG - Nurse/Tech; Complete Time: 11:46 ec2 08/07 11:44 Order name: IV Saline Lock; Complete Time: 11:46 ec2 08/07 11:44 Order name: Labs collected and sent; Complete Time: 11:46 ec2 08/07 11:44 Order name: O2 Per Protocol; Complete Time: 11:46 ec2 08/07 11:44 Order name: O2 Sat Monitoring; Complete Time: 11:46 ec2 Administered Medications: 11:51 Drug: Aspirin PO Chewable Tablet 324 mg PO once; 81 mg tablets x 4 Route: PO; ld1 12:44 Drug: NS 0.9% IV 1000 ml IV at 1 bolus Per protocol; 1000 mL bolus Route: IV; Rate: 1 ld1 bolus; Site: right antecubital; Disposition Summary: 08/07/23 13:05 Discharge Ordered Notes: Location: Home ec2 Condition: Stable ec2 Diagnosis - Lightheadedness ec2 Discharge Instructions: - Discharge Summary Sheet ec2 - Dizziness, Agap-ea-Ryra ec2 Forms: - Medication Reconciliation Form ec2 - Thank You Letter ec2 - Antibiotic Education ec2 - Prescription Opioid Use ec2 - Patient Portal Instructions ec2 - Leadership Thank You Letter ec2 Signatures: Dispatcher [employer] Hodan Smith RN RN hb Sims, Lauren, RN RN ld1 Robert Dunne MD MD ec2
[2023-08-07 13:53] VITALS: TEMP 97.7
[2023-08-07 13:56] VITALS: BP 121/76; O2SAT 100
--- NOTE | 2023-08-10 07:59 | EKG ---
Test Date: 2023-08-07 Test Time: 11:42:38 Cylinder Checker: REGINE MEASUREMENT RESULTS: Intervals: Rate: 60 OK: QRSD: 118 QT: 460 QTc: 460 [place]: P: OK: QRS: -7 T: 196 INTERPRETIVE STATEMENTS: Junctional rhythm Low voltage QRS Septal infarct, age undetermined ST & T wave abnormality, consider inferolateral ischemia Abnormal ECG Compared to ECG 04/09/2016 11:59:20 Junctional rhythm now present Low QRS voltage now present ST (T wave) deviation now present Atrial fibrillation no longer present T-wave abnormality no longer present Myocardial infarct finding still present Possible ischemia still present Electronically Signed On 08-10-23 07:53:02 CDT by Tom Richard
== END 2023-08-07 13:46 | disposition home or self-care (01) ==
LOC: ER 11:37
DX: R42 Dizziness and giddiness (principal); R53.1 Weakness; I25.2 Old myocardial infarction; I48.91 Unspecified atrial fibrillation; I48.92 Unspecified atrial flutter; Z95.1 Presence of aortocoronary bypass graft; Z95.0 Presence of cardiac pacemaker
CPT/HCPCS: 93005; 85025; 80048; 36415; 84484; 71045; 99285; J7030